=== PATIENT | female | born 1950 | race Caucasian/White ===

== ENCOUNTER 2021-03-23 13:59 | Emergency (ER) | payer MEDICARE, SELFPAY ==
[2021-03-23] VITALS (9 sets, daily range): BP systolic 117–139; BP diastolic 69–79; PULSE 75–93; RESP 16–20; TEMP 37.6; O2SAT 87–95; BMI 34.5
--- NOTE | 2021-03-23 15:28 | XR_ITS ---
WS: [id number] Exam: XR chest 1V portable [id number] Date/Time of Exam: 03/23/2021 3:30 PM Reason For Exam: dyspnea/cough No priors. Areas of plaque atelectasis in the mid and lower lung zones. Right perihilar infiltrate. Heart size i s top limits normal. No pleural effusions or pneumothorax. The mediastinum is not widened for techniq ue. Anterior lower cervical spine fusion. XR/XR chest 1V portable [id number] IMPRESSION: 1. Areas of plaque atelectasis in the mid and lower lung zones. 2. Right perihilar infiltrate noted. This could be chronic change versus active pneumonia.
--- NOTE | 2021-03-23 15:30 | ED_ITS ---
HPI - COVID General: Chief Complaint: Shortness of Breath/Dyspnea Stated Complaint: SOB, PERSISTENT COUGH, LOSS TASTE Time Seen by Provider: 03/23/21 15:15 Triage information: Has fever, cough or shortness of breath . No known COVID + exposure last 14 days History of Present Illness: MD complaint: has COVID symptoms COVID 19 common symptoms: positive fever(s), chills, cough, non-productive cough, dyspnea, fatigue, body aches, vomiting and diarrhea COVID 19 other sytmptoms: positive requiring oxygen Onset (ago): hour(s) Severity: mild Pertinent comorbid conditions: obesity and other (A. fib) Treatment prior to arrival: none COVID Results: SARS-CoV-2 Antigen (Rapid) Positive (Negative) H 03/23/21 15:43 03/23/21 SARS-CoV-2 RNA (RT-PCR) Detected (NOT DETECTED) A 03/23/21 13:58 03/23/21 Nasal/Oral Coronavirus 2019 PCR Detected H 03/23/21 15:43 03/23/21 Review of Systems Const: Reports: fever(s), chills, body aches and fatigue Resp: Reports: dyspnea and non-productive cough GI: Reports: vomiting and diarrhea PFS ED PFSH: Medical History (Updated 03/26/21 @ 02:20 by Tiffanie Kilgore MD) DVT (deep venous thrombosis) Hypertension Pulmonary embolism Surgical History (Updated 03/26/21 @ 02:13 by Tiffanie Kilgore MD) Total knee replacement status Physical Exam Const: COMMON NORMALS: no acute distress GENERAL APPEARANCE: cooperative and comfortable ORIENTATION/CONSCIOUSNESS: Yes awake, Yes oriented to person, Yes oriented to place and Yes oriented to time HENMT: COMMON NORMALS: normocephalic, atraumatic, hearing grossly normal bilaterally and external ears normal HEAD & SCALP: normocephalic and atraumatic EXTERNAL EAR: Yes external ears normal Neck/C-Spine: COMMON NORMALS: no JVD Resp: AUSCULTATION: crackles and wheezes Cardio: COMMON NORMALS: no JVD, regular rate, regular rhythm and No murmurs present (Cardio) RATE: regular rate RHYTHM: regular rhythm GI: COMMON NORMALS: Soft to palpation and No hepatosplenomegaly present AUSCULTATION: Yes normoactive bowel sounds PALPATION: Yes Soft to palpation, No Tenderness to palpation present (GI), No Guarding due to palpation present (GI) and Yes No hepatosplenomegaly present Extremity: COMMON NORMALS: normal to inspection, capillary refill normal, no clubbing, cyanosis or edema, no calf tenderness and no pedal edema Neuro: SENSORIUM/ORIENTATION: Yes oriented to person, Yes oriented to place and Yes oriented to time Skin: COMMON NORMALS: no rashes or lesions noted GENERAL SKIN EXAM: no rashes or lesions noted Course Vital Signs: Vital signs: Vital Signs Temperature 99.6 F 03/23/21 19:48 Pulse Rate 93 03/23/21 19:48 Respiratory Rate 18 03/23/21 19:48 Blood Pressure 119/69 03/23/21 19:48 Pulse Oximetry 91 03/23/21 19:48 MDM - COVID MDM Narrative: Medical decision making narrative: Discussed diagnosis and treatment. Patient wishes to get the monoclonal antibody we are going to set it up however when we did a home O2 evaluation when she got up and active she actually failed and required 4 L by nasal cannula prior to that she was getting normal sats while at rest. Due to this she is not can be a candidate we will set her up with dexamethasone home O2 discharge home on home oxygen monitor. She is telling me she is planning on driving back to [place] advised her of wally cobbably wait at least 7 to 10 days before returning since she needed oxygen she will need to recover from that before she can go home she has any worsening of symptoms she needs to return to the emergency room immediately. Lab Data: Labs: Lab Results 03/23/21 03/23/21 03/23/21 Range/Units 15:43 15:43 16:10 PT 33.90 H (12.1-14.9) SECO NDS INR 3.28 H (0.8-1.2) Nasal/Oral COVID-1 9 PCR Detected H SARS-CoV-2 Ag (Rap id) Positive H (Negative) COVID Results: SARS-CoV-2 Antigen (Rapid) Positive (Negative) H 03/23/21 15:43 03/23/21 SARS-CoV-2 RNA (RT-PCR) Detected (NOT DETECTED) A 03/23/21 13:58 03/23/21 Nasal/Oral Coronavirus 2019 PCR Detected H 03/23/21 15:43 03/23/21 Monoclonal Antibody - ED Inclusion/Exclusion Criteria age >/= 12 years, weight >/= 40kg /88lbs, symptom onset less than 10 days ago and + direct Sars-Cov-2 test less than 7-10 days ago obesity (BMI >25 or 85%til for age) and age >/= 65 Patient education patient/family/caregiver received/reviewed fact sheet, Emergency Use Authorization/unapproved drug status discussed with patient/family/caregiver, alternatives to this treatment discussed with patient/family/caregiver, risks and benefits of medication reviewed with patient/family/caregiver, patient/family/caregiver given opportunity for questions, which were answered and patient consents to receiving Monoclonal Antibody Treatment Plan for treatment Does not meet criteria (DO NOT GIVE) Discharge Plan Discharge Patient Disposition: Home Clinical Impression: COVID-19 Condition: Stable Prescriptions: New albuterol sulfate 90 mcg/actuation HFA aerosol inhaler 2 inh INHALATION Q4H PRN (Reason: shortness of breath or wheezing) Qty: 18 RF: 0 No Action propafenone 150 mg Tablet 150 mg PO DAILY MDD SEE PHARMACY COMMENT RF: 0 hydrocodone-acetaminophen 5-325 mg tablet 1 tab PO DAILY PRN (Reason: Pain) RF: 0 simvastatin 10 mg tablet 10 mg PO DAILY RF: 0 warfarin 4 mg tablet See Rx Instructions .ROUTE .COMPLEX RF: 0 hydrochlorothiazide 12.5 mg capsule 12.5 mg PO DAILY RF: 0 zolpidem 10 mg tablet 10 mg PO BEDTIME PRN (Reason: Insomnia) RF: 0 cholecalciferol (vitamin D3) [Vitamin D3] 25 mcg (1,000 unit) Capsule 50 mcg PO DAILY RF: 0 dexamethasone 6 mg tablet 6 mg PO DAILY RF: 0 Discharge Orders: Discharge ED (Routine); Ordered 03/23/21 Ordered By: Khoa Sosa Other Ambulatory Orders: DME: Oxygen (Order) Location: None Selected Ordered By: Khoa Sosa Discharge Diet: Usual diet Patient Instructions: Opioid Safety Activity Restrictions/Additional Instructions: Outpatient scheduling will call to schedule you for monoclonal antibodies. If you have any worsening symptoms return to the emergency room. Coding Level of Care Code ED Chief Quality Officer for Rajendra Dunaway Exam Comprehensive
[2021-03-23 16:33] LABS: INR 3.28 (0.8-1.2)
[2021-03-23 16:35] LABS: SARS Covid-2 Antigen Positive (Negative)
[2021-03-24 16:10] LABS: Coronavirus Test Green County Detected
== END 2021-03-23 19:58 | disposition home or self-care (01) ==
PROVIDERS: Emergency Provider Family Medicine
DX: U07.1 COVID-19 (principal); I48.91 Unspecified atrial fibrillation; I10 Essential (primary) hypertension; E66.9 Obesity, unspecified; Z68.34 Body mass index [BMI] 34.0-34.9, adult; Z79.01 Long term (current) use of anticoagulants
CPT/HCPCS: 71045; 85610; 87426; 87635; 99283

== ENCOUNTER 2021-03-24 20:05 | Emergency (ER) | payer MEDICARE, SELFPAY ==
--- NOTE | 2021-03-24 20:14 | ECG_ITS ---
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1950 Requested By: Stacie Holcomb Order Number: [id number] Reading MD: RIRI OROZCO Measurements Intervals [place] Rate: 74 P: 2 MI: 147 QRS: -2 QRSD: 89 T: -24 QT: 362 QTc: 404 Interpretive Statements SINUS RHYTHM POSSIBLE ANTERIOR MYOCARDIAL INFARCTION , OF INDETERMINATE AGE [30 ms Q WAVE IN V3/V4, OR R < 0.2 mV IN V4] MODERATE T-WAVE ABNORMALITY, CONSIDER LATERAL ISCHEMIA [-0.1+ mV T-WAVE IN I/aVL/V5/V6] No previous ECG available for comparison Electronically Signed On 03-24-2021 21:06:54 CDT by RIRI OROZCO [email or web address]
--- NOTE | 2021-03-24 20:14 | XRR_ITS ---
PROCEDURE INFORMATION: Exam: XR Chest Exam date and time: 03/24/2021 8:14 PM Age: 70 years old Clinical indication: Cough and shortness of breath; Patient HX: Covid+; Additional info: SOB TECHNIQUE: Imaging protocol: XR of the chest. Views: 1 view. COMPARISON: CR XR chest 1V portable [id number] 03/23/2021 3:46 PM FINDINGS: Lungs: Streak like increased airspace opacities bilaterally greater on left than right mostly at the bases. Background emphysema. Reduced lung volumes. Pleural spaces: Unremarkable. No pleural effusion. No pneumothorax. Heart/Mediastinum: Unremarkable. No cardiomegaly. Bones/joints: Lower cervical spine ACDF. Negative for acute thoracic fracture. XR/XR chest 1V portable [id number] IMPRESSION: Patchy nonspecific pneumonia changes in both lungs worse than prior.
[2021-03-24 20:42] VITALS: BP 123/72; PULSE 70; RESP 18; TEMP 20.1; O2SAT 89; BMI 34.7
--- NOTE | 2021-03-24 22:31 | ED_ITS ---
HPI - SOB/Dyspnea General: Chief Complaint: Shortness of Breath/Dyspnea Stated Complaint: sob, covid+ Time Seen by Provider: 03/24/21 22:25 Source: patient Mode of arrival: ambulatory Limitations: no limitations History of Present Illness: HPI Narrative: 70-year-old female who states she had cough congestion and fever and body aches over the last 4 days. She was seen here yesterday diagnosed with Covid and started on home oxygen. She states that throughout the day she has had increasing shortness of breath and feeling much worse. She states she has not been able to get up or do any activities due to body aches and dyspnea. Denies any vomiting or diarrhea. Denies any chest pain Associated symptoms: Reports fever(s); Deny abdominal pain, chest pain, nausea or vomiting Review of Systems Const: Reports: fever(s), chills and body aches; Denies: change in appetite Eyes: Denies: blurry vision or eye discomfort ENMT: Denies: throat pain or dental pain Card: Denies: chest pain Resp: Reports: dyspnea and non-productive cough GI: Denies: abdominal pain, nausea, vomiting or diarrhea : Denies: dysuria Musc: Denies: neck pain or back pain Skin/Breast: Denies: rash Neuro: Denies: headache(s) Psych: Denies: depression Gennaro/Lymph: Denies: easy bruising All/Imm: Denies: urticaria Physical Exam Const: COMMON NORMALS: patient oriented x3 GENERAL APPEARANCE: in distress and ill appearing HENMT: COMMON NORMALS: normocephalic and atraumatic HEAD & SCALP: normocephalic and atraumatic Eye: COMMON NORMALS: Equal, round and reactive pupils present and EOMs intact bilaterally PUPIL: Yes Equal, round and reactive pupils present Neck/C-Spine: COMMON NORMALS: full ROM and supple Chest: COMMONS NORMALS: normal inspection of the chest and normal palpation of entire chest wall Resp: COMMON NORMALS: No retractions and No use of accessory muscles EFFORT & INSPECTION: Yes tachypneic AUSCULTATION: rales Cardio: COMMON NORMALS: regular rate, regular rhythm and No murmurs present (Cardio) RATE: regular rate RHYTHM: regular rhythm GI: COMMON NORMALS: Normal to inspection, nondistended, normoactive bowel sounds present, Soft to palpation, non-tender and no masses PALPATION: Yes Soft to palpation Extremity: COMMON NORMALS: normal to inspection and full ROM Neuro: COMMON NORMALS: patient oriented x3, moves all extremities and no focal motor deficits Psych: COMMON NORMALS: mental status grossly normal, Normal thought process present and cooperative THOUGHT PROCESS: Normal thought process present Skin: COMMON NORMALS: no rashes or lesions noted and no wounds GENERAL SKIN EXAM: no rashes or lesions noted Course Vital Signs: Vital signs: Vital Signs Temperature 99 F 03/24/21 23:27 Pulse Rate 69 03/24/21 23:27 Respiratory Rate 18 03/24/21 23:27 Blood Pressure 128/61 03/24/21 23:27 Pulse Oximetry 93 03/24/21 23:27 MDM - SOB/Dyspnea MDM Narrative: Medical decision making narrative: Patient presents here with Covid. She diagnosed yesterday has been doing well here on the home oxygen level at 3 L she was discharged on. X-ray shows slight worsening her lab work here is normal. I spoke to her at length and I offered her admission as she had no improvement. She states that while she been here she is actually felt improved. She states that she would rather go at home currently she is feeling improved. I did inform her that her x-rays worsening and we could admit her. She states she still would like to try at home first. Informed her to watch her oxygen levels very closely and if she gets worse at all or feels worse she is to return immediately. She is with family as well. She understands agrees this plan. Lab Data: Labs: Lab Results 03/24/21 03/24/21 03/24/21 Range/Units 22:45 23:00 23:00 WBC 4.2 (4.0-10.0) 10^3/ uL RBC 4.96 (4.1-5.3) 10^6/u L Hgb 14.9 (11.5-15.3) g/dL Hct 44.2 (37.0-47.0) % MCV 89.1 (81-99) fl MCH 30.0 (28.0-34.0) pg MCHC 33.7 (30.0-36.0) g/dL RDW 13.3 (12.1-15.1) % Plt Count 244 (130-400) 10^3/c mm MPV 9.7 (7.4-10.4) fL Neut % (Auto) 83.4 % Lymph % (Auto) 10.6 % Redwood % (Auto) 5.8 % Eos % (Auto) 0.0 % Baso % (Auto) 0.0 % Neut # (Auto) 3.48 (1.8-7.7) 10^3/u L Lymph # (Auto) 0.4 L (0.8-4.8) 10^3/u L Redwood # (Auto) 0.2 (0.2-0.9) 10^3/u L Eos # (Auto) 0.0 (0.0-0.8) 10^3/u L Baso # (Auto) 0.0 (0.0-0.1) 10^3/u L Nucleated RBC % (a uto) 0 % Nucleated RBCs # 0.0 /100WBC PT 46.40 H (12.1-14.9) SECO NDS INR 4.91 H (0.8-1.2) D-Dimer <= 0.27 (0-0.59) ug/mIFE U Specimen Type Arterial Sample Site Radial, right ABG pH 7.45 (7.35-7.45) ABG pCO2 46.2 H (35-45) mmHg ABG pO2 71.8 L (80.0-100.0) mmH g ABG HCO3 32.4 H (22-26) mmol/L ABG Base Excess 7.2 H (-2.0-2.0) mmol/ L Junito Test Pos Hematocrit 46.7 (37-47) % O2 Delivery Device Nc O2 Liters/Min 3.0 % Digital Press Operator ID Harkr Sodium (136-145) mmol/L Potassium (3.5-5.1) mmol/L Chloride (98-107) mmol/L Carbon Dioxide (22-29) mmol/L Anion Gap (5-19) BUN (8-23) mg/dL Creatinine (0.5-0.9) mg/dL GFR Calculation (90-130) mL/min Glucose (65-115) mg/dL Calculated Osmolal ity (285-295) mOsm/k g Lactic Acid (0.5-2.2) mmol/L Calcium (8.5-10.5) mg/dL Total Bilirubin (0.15-1.2) mg/dL AST (0-32) U/L ALT (0-33) U/L Alkaline Phosphata se (35-105) IU/L C-Reactive Protein (0.0-4.9) mg/L NT-Pro-B Natriuret Pep (0-125) pg/mL Total Protein (6.6-8.7) g/dL Albumin (3.5-5.2) g/dL Globulin (1.3-4.6) g/dL Procalcitonin (0-0.5) ng/mL 03/24/21 03/24/21 03/24/21 Range/Units 23:00 23:00 23:00 WBC (4.0-10.0) 10^3/ uL RBC (4.1-5.3) 10^6/u L Hgb (11.5-15.3) g/dL Hct (37.0-47.0) % MCV (81-99) fl MCH (28.0-34.0) pg MCHC (30.0-36.0) g/dL RDW (12.1-15.1) % Plt Count (130-400) 10^3/c mm MPV (7.4-10.4) fL Neut % (Auto) % Lymph % (Auto) % Redwood % (Auto) % Eos % (Auto) % Baso % (Auto) % Neut # (Auto) (1.8-7.7) 10^3/u L Lymph # (Auto) (0.8-4.8) 10^3/u L Redwood # (Auto) (0.2-0.9) 10^3/u L Eos # (Auto) (0.0-0.8) 10^3/u L Baso # (Auto) (0.0-0.1) 10^3/u L Nucleated RBC % (a uto) % Nucleated RBCs # /100WBC PT Cancelled (12.1-14.9) SECO NDS INR Cancelled (0.8-1.2) D-Dimer (0-0.59) ug/mIFE U Specimen Type Sample Site ABG pH (7.35-7.45) ABG pCO2 (35-45) mmHg ABG pO2 (80.0-100.0) mmH g ABG HCO3 (22-26) mmol/L ABG Base Excess (-2.0-2.0) mmol/ L Junito Test Hematocrit (37-47) % O2 Delivery Device O2 Liters/Min % Digital Press Operator ID Sodium 141 (136-145) mmol/L Potassium 3.4 L (3.5-5.1) mmol/L Chloride 98 (98-107) mmol/L Carbon Dioxide 31 H (22-29) mmol/L Anion Gap 15.4 (5-19) BUN 21 (8-23) mg/dL Creatinine 0.6 (0.5-0.9) mg/dL GFR Calculation 99.1 (90-130) mL/min Glucose 128 H (65-115) mg/dL Calculated Osmolal ity 297 H (285-295) mOsm/k g Lactic Acid 1.3 (0.5-2.2) mmol/L Calcium 10.1 (8.5-10.5) mg/dL Total Bilirubin 0.6 (0.15-1.2) mg/dL AST 25 (0-32) U/L ALT 13 (0-33) U/L Alkaline Phosphata se 57 (35-105) IU/L C-Reactive Protein 42.8 H (0.0-4.9) mg/L NT-Pro-B Natriuret Pep 246 H (0-125) pg/mL Total Protein 7.6 (6.6-8.7) g/dL Albumin 3.9 (3.5-5.2) g/dL Globulin 3.7 (1.3-4.6) g/dL Procalcitonin 0.12 (0-0.5) ng/mL Imaging Data^: CXR: Attestation: I personally reviewed and interpreted this imaging study as follows: Radiologist's impression: [address] [place] [address] XRay Report Signed Patient: Venus Don Unit #: [id number] : 1950 Age/Sex: 70 / F ADM Date: 03/24/21 Loc: ER Room/Bed: Attending Dr: Ordering Provider/Ordering MD: Stacie Holcomb MD Date of Service: 03/24/21 Procedure(s): XR chest 1V portable [id number] Accession Number(s): [id number] Report Number: [id number] PROCEDURE INFORMATION: Exam: XR Chest Exam date and time: 03/24/2021 8:14 PM Age: 70 years old Clinical indication: Cough and shortness of breath; Patient HX: Covid+; Additional info: SOB TECHNIQUE: Imaging protocol: XR of the chest. Views: 1 view. COMPARISON: CR XR chest 1V portable [id number] 03/23/2021 3:46 PM FINDINGS: Lungs: Streak like increased airspace opacities bilaterally greater on left than right mostly at the bases. Background emphysema. Reduced lung volumes. Pleural spaces: Unremarkable. No pleural effusion. No pneumothorax. Heart/Mediastinum: Unremarkable. No cardiomegaly. Bones/joints: Lower cervical spine ACDF. Negative for acute thoracic fracture. XR/XR chest 1V portable [id number] IMPRESSION: Patchy nonspecific pneumonia changes in both lungs worse than prior. Dictated By: Marvel Odonnell Signed By: Marvel Odonnell Signed Date/Time: 03/24/212124 DD/ 22 EKG Data^: EKG 1: Attestation: I personally reviewed and interpreted this EKG as follows: EKG Interpretation Date: 03/24/21 EKG interpretation time: 20:59 Interpretation: nsr hr [address] or t wave abnormalities qrs 89 qtc 390 Discharge Plan Discharge Patient Disposition: Home Clinical Impression: COVID-19 Condition: Stable Prescriptions: No Action propafenone 150 mg Tablet 150 mg PO DAILY MDD SEE PHARMACY COMMENT RF: 0 hydrocodone-acetaminophen 5-325 mg tablet 1 tab PO DAILY PRN (Reason: Pain) RF: 0 simvastatin 10 mg tablet 10 mg PO DAILY RF: 0 warfarin 4 mg tablet See Rx Instructions .ROUTE .COMPLEX RF: 0 hydrochlorothiazide 12.5 mg capsule 12.5 mg PO DAILY RF: 0 zolpidem 10 mg tablet 10 mg PO BEDTIME PRN (Reason: Insomnia) RF: 0 Vitamin D3 25 mcg (1,000 unit) Capsule 50 mcg PO DAILY RF: 0 dexamethasone 6 mg tablet 6 mg PO DAILY Qty: 7 RF: 0 albuterol sulfate 90 mcg/actuation HFA aerosol inhaler 2 inh INHALATION Q4H PRN (Reason: shortness of breath or wheezing) Qty: 18 RF: 0 Discharge Orders: Discharge ED (Routine); Ordered 03/25/21 Ordered By: Stacie Holcomb Discharge Diet: Advance as tolerated Discharge Activity: Resume usual activity Patient Instructions: Viral Syndrome (ED) Coding Level of Care Code ED Hand Screen Printer for Jadyng Fwd Exam Comprehensive
[2021-03-24 22:43] VITALS: PULSE 70; RESP 20; O2SAT 94
[2021-03-24] MEDS: albuterol 8 gm MDI 2 PUFF INHALATION (22:43)
[2021-03-24 22:53] VITALS: PULSE 74
[2021-03-24 22:56] LABS: ABG PCO2 46.2 mmHg (35-45); ABG PH Result 7.45 (7.35-7.45); Arterial Blood Gas Hematocrit 46.7 % (37-47); Base Excess ABG 7.2 mmol/L (-2.0-2.0); Blood Gas Allen Test Pos; Blood Gas Operator Identificat HARKR; Blood Gas Sample Site Radial, right; Blood Gas Sample Type Arterial; HCO3 ABG 32.4 mmol/L (22-26); Oxygen Device NC; PO2 ABG 71.8 mmHg (80.0-100.0)
[2021-03-24 23:13] LABS: Hematocrit 44.2 % (37.0-47.0); Hemoglobin 14.9 g/dL (11.5-15.3); Lymphocytes # 0.4 10^3/uL (0.8-4.8); Lymphocytes % 10.6 %; Mean Corpuscular HGB Conc 33.7 g/dL (30.0-36.0); Mean Corpuscular Volume 89.1 fl (81-99); Mean Platelet Volume 9.7 fL (7.4-10.4); Monocytes # 0.2 10^3/uL (0.2-0.9); Monocytes % 5.8 %; Neutrophils # 3.48 10^3/uL (1.8-7.7); Neutrophils % 83.4 %; Nucleated Red Blood Cells % 0 %; Platelet Count 244 10^3/cmm (130-400); Red Blood Count 4.96 10^6/uL (4.1-5.3); Red Cell Distribution Width 13.3 % (12.1-15.1); White Blood Count 4.2 10^3/uL (4.0-10.0)
[2021-03-24] MEDS: dexamethasone 10 mg/mL INJ 6 MG IVP (23:16)
[2021-03-24 23:27] VITALS: BP 128/61; PULSE 69; RESP 18; TEMP 37.2; O2SAT 93
[2021-03-24 23:31] LABS: INR 4.91 (0.8-1.2)
[2021-03-24 23:33] LABS: D Dimer <= 0.27 ug/mIFEU (0-0.59)
[2021-03-24 23:38] LABS: Lactic Sepsis W/Reflex 1.3 mmol/L (0.5-2.2)
[2021-03-24 23:49] LABS: NT Pro B Type Natriuretic Pept 246 pg/mL (0-125); Procalcitonin 0.12 ng/mL (0-0.5)
--- NOTE | 2021-03-24 23:51 | PC.NURSE ---
report to Kofi CANNON
[2021-03-25] LABS: Alanine Aminotransferase 13 U/L (0-33); Albumin Level 3.9 g/dL (3.5-5.2); Alkaline Phosphatase 57 IU/L (35-105); Anion Gap 15.4 (5-19); Aspartate Amino Transferase 25 U/L (0-32); Blood Urea Nitrogen 21 mg/dL (8-23); C Reactive Protein 42.8 mg/L (0.0-4.9); Calcium 10.1 mg/dL (8.5-10.5); Carbon Dioxide 31 mmol/L (22-29); Chloride 98 mmol/L (98-107); Globulin 3.7 g/dL (1.3-4.6); Glomerular Filtration Rate 99.1 mL/min (90-130); Glucose 128 mg/dL (65-115); Osmolality Calculated 297 mOsm/kg (285-295); Potassium 3.4 mmol/L (3.5-5.1); Sodium 141 mmol/L (136-145); Total Bilirubin 0.6 mg/dL (0.15-1.2); Total Protein 7.6 g/dL (6.6-8.7)
[2021-03-25 01:22] VITALS: BP 135/73; PULSE 89; RESP 22; O2SAT 92
== END 2021-03-25 01:15 | disposition home or self-care (01) ==
PROVIDERS: Emergency Provider Emergency Medicine
DX: U07.1 COVID-19 (principal); Z79.01 Long term (current) use of anticoagulants
CPT/HCPCS: 36600; 71045; 80053; 82803; 83605; 83880; 84145; 85025; 85378; 85610; 86140; 93005; 94640; 96374; 99284; J1100; J3535

== ENCOUNTER 2021-03-25 16:43 | Inpatient (IN) | payer MEDICARE, SELFPAY ==
[2021-03-25 17:14] VITALS: BP 119/75; PULSE 101; RESP 18; TEMP 37.2; O2SAT 94; BMI 34.2
--- NOTE | 2021-03-25 17:55 | XRR_ITS ---
PROCEDURE INFORMATION: Exam: XR Chest Exam date and time: 03/25/2021 5:55 PM Age: 70 years old Clinical indication: Shortness of breath; Additional info: SOB TECHNIQUE: Imaging protocol: XR of the chest. Views: 1 view. Total images: 1 COMPARISON: CR (CHEST, ) 03/24/2021 8:45 PM FINDINGS: Lungs: Diminished inspiratory effort. Bilateral patches of ground-glass interstitial lung disease with subsegmental discoid consolidated alveolar airspace disease of active pneumonitis/pneumonia and or discoid atelectasis. Progression of disease particularly right lung since last evaluation. Overall constellation of findings would include the differential diagnosis of Covid-19 pneumonitis/pneumonia. Pleural spaces: No grossly visible pleural effusion. No pneumothorax. Heart/Mediastinum: Cardiac structures in configuration with cardiomegaly and arteriosclerosis. Bones/joints: Previous cervical fusion. Soft tissues: Heavy body habitus. XR/XR chest 1V portable [id number] IMPRESSION: Progression of disease bilateral pneumonitis/pneumonia.
--- NOTE | 2021-03-25 17:55 | ECG_ITS ---
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 Measurements Intervals [place] Rate: 76 P: 32 MS: 151 QRS: 13 QRSD: 102 T: -14 QT: 321 QTc: 362 Interpretive Statements SINUS RHYTHM NONSPECIFIC ST & T-WAVE ABNORMALITY Compared to ECG 03/24/2021 20:59:37 Myocardial infarct finding no longer present Possible ischemia no longer present T-wave abnormality still present Electronically Signed On 03-26-2021 13:05:34 CDT by Jennifer Bran M.D. [email or web address]
[2021-03-25 17:57] VITALS: BP 137/61; PULSE 81; RESP 18; TEMP 37.2; O2SAT 93
--- NOTE | 2021-03-25 18:04 | W.ED.URI ---
HPI - URI/Sore Throat General: Chief Complaint: Upper Respiratory Infection Stated Complaint: SOB, CP Time Seen by Provider: 03/25/21 17:38 Source: patient Mode of arrival: ambulatory Limitations: no limitations History of Present Illness: HPI Narrative: 70-year-old female who was diagnosed with Covid 4 days ago and has been having symptoms for 5 days. She states that she is increasingly gotten worse. I saw her in the ER last night and tried admitted but she felt improved and went home. She states that since being home she felt worse and is changed her mind and feels that she does need to be admitted. She is currently on 5 L she was on 3 L yesterday. She states she had increasing shortness of breath. Denies any vomiting or diarrhea. Associated symptoms: Reports chills and fever(s); Deny abdominal pain, chest pain, diarrhea, headache(s), nausea or vomiting Review of Systems Const: Reports: fever(s), chills and body aches Eyes: Denies: blurry vision or eye discomfort ENMT: Denies: throat pain or dental pain Card: Denies: chest pain Resp: Reports: dyspnea and non-productive cough GI: Denies: abdominal pain, nausea, vomiting or diarrhea : Denies: dysuria Musc: Denies: neck pain or back pain Skin/Breast: Denies: rash Neuro: Denies: headache(s) Psych: Denies: depression Gennaro/Lymph: Denies: easy bruising All/Imm: Denies: urticaria Physical Exam Const: COMMON NORMALS: patient oriented x3 GENERAL APPEARANCE: in distress and ill appearing HENMT: COMMON NORMALS: normocephalic and atraumatic HEAD & SCALP: normocephalic and atraumatic Eye: COMMON NORMALS: Equal, round and reactive pupils present and EOMs intact bilaterally PUPIL: Yes Equal, round and reactive pupils present Neck/C-Spine: COMMON NORMALS: full ROM and supple Chest: COMMONS NORMALS: normal inspection of the chest and normal palpation of entire chest wall Resp: COMMON NORMALS: normal respiratory effort, No retractions and No use of accessory muscles EFFORT & INSPECTION: Yes tachypneic AUSCULTATION: rales Cardio: COMMON NORMALS: regular rate, regular rhythm and No murmurs present (Cardio) RATE: regular rate RHYTHM: regular rhythm GI: COMMON NORMALS: Normal to inspection, nondistended, normoactive bowel sounds present, Soft to palpation, non-tender and no masses PALPATION: Yes Soft to palpation Extremity: COMMON NORMALS: normal to inspection and full ROM Neuro: COMMON NORMALS: patient oriented x3, moves all extremities and no focal motor deficits Psych: COMMON NORMALS: mental status grossly normal, Normal thought process present and cooperative THOUGHT PROCESS: Normal thought process present Skin: COMMON NORMALS: no rashes or lesions noted and no wounds GENERAL SKIN EXAM: no rashes or lesions noted Course Vital Signs: Vital signs: Vital Signs Temperature 99.0 F 03/25/21 17:57 Pulse Rate 90 03/25/21 20:51 Respiratory Rate 17 03/25/21 20:51 Blood Pressure 125/70 03/25/21 20:51 Pulse Oximetry 92 03/25/21 20:51 MDM - URI/Sore Throat MDM Narrative: Medical decision making narrative: Patient presents here with Covid pneumonia requiring more oxygen and worsening x-ray. I spoke to hospitalist and will admit here. Patient's been stable while here. Lab Data: Labs: Lab Results 03/25/21 03/25/21 03/25/21 Range/Units 18:29 19:40 19:40 WBC 6.9 (4.0-10.0) 10^3/ uL RBC 4.66 (4.1-5.3) 10^6/u L Hgb 14.1 (11.5-15.3) g/dL Hct 41.9 (37.0-47.0) % MCV 89.9 (81-99) fl MCH 30.3 (28.0-34.0) pg MCHC 33.7 (30.0-36.0) g/dL RDW 13.1 (12.1-15.1) % Plt Count 275 (130-400) 10^3/c mm MPV 9.9 (7.4-10.4) fL Neut % (Auto) 88.7 % Lymph % (Auto) 3.3 % Vermilion % (Auto) 7.4 % Eos % (Auto) 0.0 % Baso % (Auto) 0.0 % Neut # (Auto) 6.10 (1.8-7.7) 10^3/u L Lymph # (Auto) 0.2 L (0.8-4.8) 10^3/u L Vermilion # (Auto) 0.5 (0.2-0.9) 10^3/u L Eos # (Auto) 0.0 (0.0-0.8) 10^3/u L Baso # (Auto) 0.0 (0.0-0.1) 10^3/u L Nucleated RBC % (a uto) 0 % Nucleated RBCs # 0.0 /100WBC Specimen Type Arterial Sample Site Radial, left ABG pH 7.51 H (7.35-7.45) ABG pCO2 40.6 (35-45) mmHg ABG pO2 72.2 L (80.0-100.0) mmH g ABG HCO3 32.6 H (22-26) mmol/L ABG Base Excess 8.8 H (-2.0-2.0) mmol/ L Junito Test Pos Hematocrit 45.9 (37-47) % O2 Delivery Device Nc O2 Liters/Min 4.0 % FiO2 36.0 % Source Water Protection Specialist ID Cak Sodium 144 (136-145) mmol/L Potassium 3.1 L (3.5-5.1) mmol/L Chloride 103 (98-107) mmol/L Carbon Dioxide 28 (22-29) mmol/L Anion Gap 16.1 (5-19) BUN 25 H (8-23) mg/dL Creatinine 0.6 (0.5-0.9) mg/dL GFR Calculation 99.1 (90-130) mL/min Glucose 129 H (65-115) mg/dL Calculated Osmolal ity 304 H (285-295) mOsm/k g Lactic Acid (0.5-2.2) mmol/L Calcium 8.9 (8.5-10.5) mg/dL Total Bilirubin 0.5 (0.15-1.2) mg/dL AST 25 (0-32) U/L ALT 10 (0-33) U/L Alkaline Phosphata se 49 (35-105) IU/L C-Reactive Protein 36.5 H (0.0-4.9) mg/L NT-Pro-B Natriuret Pep 267 H (0-125) pg/mL Total Protein 6.1 L (6.6-8.7) g/dL Albumin 3.7 (3.5-5.2) g/dL Globulin 2.4 (1.3-4.6) g/dL 03/25/21 Range/Units 20:39 WBC (4.0-10.0) 10^3/ uL RBC (4.1-5.3) 10^6/u L Hgb (11.5-15.3) g/dL Hct (37.0-47.0) % MCV (81-99) fl MCH (28.0-34.0) pg MCHC (30.0-36.0) g/dL RDW (12.1-15.1) % Plt Count (130-400) 10^3/c mm MPV (7.4-10.4) fL Neut % (Auto) % Lymph % (Auto) % Vermilion % (Auto) % Eos % (Auto) % Baso % (Auto) % Neut # (Auto) (1.8-7.7) 10^3/u L Lymph # (Auto) (0.8-4.8) 10^3/u L Vermilion # (Auto) (0.2-0.9) 10^3/u L Eos # (Auto) (0.0-0.8) 10^3/u L Baso # (Auto) (0.0-0.1) 10^3/u L Nucleated RBC % (a uto) % Nucleated RBCs # /100WBC Specimen Type Sample Site ABG pH (7.35-7.45) ABG pCO2 (35-45) mmHg ABG pO2 (80.0-100.0) mmH g ABG HCO3 (22-26) mmol/L ABG Base Excess (-2.0-2.0) mmol/ L Junito Test Hematocrit (37-47) % O2 Delivery Device O2 Liters/Min % FiO2 % Source Water Protection Specialist ID Sodium (136-145) mmol/L Potassium (3.5-5.1) mmol/L Chloride (98-107) mmol/L Carbon Dioxide (22-29) mmol/L Anion Gap (5-19) BUN (8-23) mg/dL Creatinine (0.5-0.9) mg/dL GFR Calculation (90-130) mL/min Glucose (65-115) mg/dL Calculated Osmolal ity (285-295) mOsm/k g Lactic Acid 1.6 (0.5-2.2) mmol/L Calcium (8.5-10.5) mg/dL Total Bilirubin (0.15-1.2) mg/dL AST (0-32) U/L ALT (0-33) U/L Alkaline Phosphata se (35-105) IU/L C-Reactive Protein (0.0-4.9) mg/L NT-Pro-B Natriuret Pep (0-125) pg/mL Total Protein (6.6-8.7) g/dL Albumin (3.5-5.2) g/dL Globulin (1.3-4.6) g/dL Imaging Data^: CXR: Attestation: I personally reviewed and interpreted this imaging study as follows: Radiologist's impression: [id number] [address] XRay Report Signed Patient: Venus Don Unit #: [id number] : 1950 Age/Sex: 70 / F ADM Date: 03/25/21 Loc: ER Room/Bed: Attending Dr: Ordering Provider/Ordering MD: Stacie Holcomb MD Date of Service: 03/25/21 Procedure(s): XR chest 1V portable [id number] Accession Number(s): [id number] Report Number: [id number] PROCEDURE INFORMATION: Exam: XR Chest Exam date and time: 03/25/2021 5:55 PM Age: 70 years old Clinical indication: Shortness of breath; Additional info: SOB TECHNIQUE: Imaging protocol: XR of the chest. Views: 1 view. Total images: 1 COMPARISON: CR (CHEST, ) 03/24/2021 8:45 PM FINDINGS: Lungs: Diminished inspiratory effort. Bilateral patches of ground-glass interstitial lung disease with subsegmental discoid consolidated alveolar airspace disease of active pneumonitis/pneumonia and or discoid atelectasis. Progression of disease particularly right lung since last evaluation. Overall constellation of findings would include the differential diagnosis of Covid-19 pneumonitis/pneumonia. Pleural spaces: No grossly visible pleural effusion. No pneumothorax. Heart/Mediastinum: Cardiac structures in configuration with cardiomegaly and arteriosclerosis. Bones/joints: Previous cervical fusion. Soft tissues: Heavy body habitus. XR/XR chest 1V portable [id number] IMPRESSION: Progression of disease bilateral pneumonitis/pneumonia. Dictated By: Zeyad Washington Signed By: Zeyad Washington Signed Date/Time: 03/25/211846 DD/ 44 Discharge Plan Discharge Patient Disposition: Admitted As Inpatient Clinical Impression: COVID-19 Condition: Stable Coding Level of Care Code ED Electric Power Line Examiner for Chg Fwd Exam Comprehensive
[2021-03-25 18:40] LABS: ABG PCO2 40.6 mmHg (35-45); ABG PH Result 7.51 (7.35-7.45); Arterial Blood Gas Hematocrit 45.9 % (37-47); Base Excess ABG 8.8 mmol/L (-2.0-2.0); Blood Gas Allen Test Pos; Blood Gas Operator Identificat CAK; Blood Gas Sample Site Radial, left; Blood Gas Sample Type Arterial; HCO3 ABG 32.6 mmol/L (22-26); Oxygen Device NC; PO2 ABG 72.2 mmHg (80.0-100.0)
[2021-03-25] MEDS: remdesivir 200 MG in sodium chloride 0.9% (100 ml) 100 ML 100 MG IV (19:41)
[2021-03-25 19:45] LABS: Hematocrit 41.9 % (37.0-47.0); Hemoglobin 14.1 g/dL (11.5-15.3); Lymphocytes # 0.2 10^3/uL (0.8-4.8); Lymphocytes % 3.3 %; Mean Corpuscular HGB Conc 33.7 g/dL (30.0-36.0); Mean Corpuscular Hemoglobin 30.3 pg (28.0-34.0); Mean Corpuscular Volume 89.9 fl (81-99); Mean Platelet Volume 9.9 fL (7.4-10.4); Monocytes # 0.5 10^3/uL (0.2-0.9); Monocytes % 7.4 %; Neutrophils % 88.7 %; Nucleated Red Blood Cells % 0 %; Platelet Count 275 10^3/cmm (130-400); Red Blood Count 4.66 10^6/uL (4.1-5.3); Red Cell Distribution Width 13.1 % (12.1-15.1); White Blood Count 6.9 10^3/uL (4.0-10.0)
[2021-03-25 20:50] LABS: Alanine Aminotransferase 10 U/L (0-33); Albumin Level 3.7 g/dL (3.5-5.2); Alkaline Phosphatase 49 IU/L (35-105); Aspartate Amino Transferase 25 U/L (0-32); Blood Urea Nitrogen 25 mg/dL (8-23); C Reactive Protein 36.5 mg/L (0.0-4.9); Calcium 8.9 mg/dL (8.5-10.5); Carbon Dioxide 28 mmol/L (22-29); Chloride 103 mmol/L (98-107); Globulin 2.4 g/dL (1.3-4.6); Glomerular Filtration Rate 99.1 mL/min (90-130); Glucose 129 mg/dL (65-115); NT Pro B Type Natriuretic Pept 267 pg/mL (0-125); Osmolality Calculated 304 mOsm/kg (285-295); Sodium 144 mmol/L (136-145); Total Bilirubin 0.5 mg/dL (0.15-1.2); Total Protein 6.1 g/dL (6.6-8.7)
[2021-03-25 20:51] VITALS: BP 125/70; PULSE 90; RESP 17; O2SAT 92
[2021-03-25 20:55] LABS: Anion Gap 16.1 (5-19); Potassium 3.1 mmol/L (3.5-5.1)
[2021-03-25 21:06] LABS: Lactic Sepsis W/Reflex 1.6 mmol/L (0.5-2.2)
[2021-03-25] MEDS: potassium chloride ER 20 mEq Tablet 40 MEQ PO (22:53)
[2021-03-25] MEDS: cefTRIAXone 1,000 MG in sodium chloride 0.9% (plus) 50 ML 100 MG IV (22:54)
[2021-03-25] MEDS: dexamethasone 4 mg/mL INJ 6 MG IVP (22:54)
[2021-03-25 23:00] VITALS: BP 106/73; PULSE 68; RESP 17; O2SAT 94
[2021-03-25 23:14] VITALS: BP 106/73; PULSE 68; RESP 17; O2SAT 94
[2021-03-25 23:44] VITALS: BMI 33.7
[2021-03-26] VITALS (13 sets, daily range): BP systolic 119–130; BP diastolic 53–64; PULSE 54–69; RESP 16–24; TEMP 36.5–36.9; O2SAT 89–93
[2021-03-26] MEDS: azithromycin 500 MG in sodium chloride 0.9% 250 ML 250 MG IV ×2 (00:13→22:19)
--- NOTE | 2021-03-26 00:36 | PC.NURSE ---
Transfer Note Patient transferred to 208 from ED via stretcher at 0010. Handoff received from ED RN. Patient oriented to environment and equipment. Covering service notified. Orders reviewed and will continue to monitor. Family and/or parts representative notified.
--- NOTE | 2021-03-26 02:09 | P.HP_ITS ---
Providers/Chief Complaint Admitting Physician: Tiffanie Kilgore MD Chief Complaint: SOB, CP History of Present Illness Venus Don is a 70 year old female currently visiting family here from [place], past medical history of PE for which patient is maintained on warfarin for the past 6 years, states her goal INR is 2.5-3.5, atrial fibri llation, currently with propafenone. She tested positive for COVID-19 infection on March 23, 2021. Presented to the emergency room for monoclonal antibody infusion, however was found to have a new oxygen requirement at that time and this was therefore deferred. She was discharged home with oxygen and dexamethasone 6 mg p.o. daily. States she was using up to 4 L/min at home, today she noted that she was becoming more short of breath, oxygen saturation was in the mid 80s and this prompted her to present to the emergency room. Her chest x-ray shows evidence of bilateral pneumonia. INR is noted to be supratherapeutic at this time. Patient is mildly short of breath and speaking in long sentences. Currently requiring 5 L/min via nasal cannula. She is unvaccinated for COVID-19. Review of Systems General: Reports: 10 or more systems reviewed and unremarkable except in HPI and below Const: Denies: fever(s), chills or body aches Eyes: Denies: change in vision, blurry vision or photophobia ENMT: Reports: hoarseness; Denies: throat pain, enlarged tonsils, odynophagia or nasal congestion Card: Denies: chest pain, palpitations, irregular heart rhythm, edema, swelling of feet/ankles, lightheadedness, pre-syncope, dyspnea on exertion or orthopnea Resp: Denies: dyspnea, productive cough, non-productive cough, wheezing, stridor, pain on inspiration, change in phlegm color, hemoptysis or chest congestion GI: Denies: abdominal pain, nausea, vomiting, hematemesis, coffee ground emesis, dysphagia, heartburn, diarrhea, constipation, GI cramping, change in stool character, hematochezia or melena : Denies: flank pain, difficulty voiding, dysuria, urinary frequency, urina ry urgency, urinary hesitancy or hematuria Musc: Denies: neck pain, back pain, extremity pain, joint swelling, joint warmth or deformity Neuro: Denies: headache(s), numbness in extremities, weakness in extremities, sensory changes, difficulty walking, frequent falls, dizziness, vertigo, be havioral changes, Slurred speech present or seizure-like activity Psych: Denies: anxiety, depression, suicidal ideation or homicidal ideation Endo: Denies: polyuria, polydipsia, tired all the time, cold intolerance or hot flashes Gennaro/Lymph: Denies: easy bruising or easy bleeding Medications/Allergies Home Medications Medication Instructions Recorded Confirmed Last Taken Type albuterol sulfate 2 inh INHALATION Q4H PRN #18 gm 03/23/21 03/25/21 Unknown Rx cholecalciferol (vitamin D3) 50 mcg PO DAILY 03/23/21 03/25/21 03/25/21 History [Vitamin D3] hydrochlorothiazide 12.5 mg PO DAILY 03/23/21 03/25/21 03/25/21 History hydrocodone-acetaminophen 1 tab PO DAILY PRN 03/23/21 03/25/21 Unknown History propafenone 150 mg PO DAILY MDD SEE PHARMACY 03/23/21 03/25/21 03/25/21 History COMMENT simvastatin 10 mg PO DAILY 03/23/21 03/25/21 03/25/21 History warfarin See Rx Instructions .ROUTE .COMPLEX 03/23/21 03/25/21 03/25/21 History zolpidem 10 mg PO BEDTIME PRN 03/23/21 03/25/21 03/24/21 History dexamethasone 6 mg PO DAILY 03/25/21 03/25/21 03/24/21 History Allergies Allergy/AdvReac Type Severity Reaction Status Date / Time egg Allergy vomiting Verified 03/23/21 13:26 PFSH Acute PFSH: Medical History (Updated 03/26/21 @ 02:20 by Tiffanie Kilgore MD) DVT (deep venous thrombosis) Hypertension Pulmonary embolism Surgical History (Updated 03/26/21 @ 02:13 by Tiffanie Kilgore MD) Total knee replacement status Vitals/I&O/Wt Last Vital Signs Temp 98.3 F 03/26/21 00:00 Pulse 62 03/26/21 00:00 Resp 22 H 03/26/21 00:00 BP 127/64 03/26/21 00:00 Pulse Ox 93 03/26/21 00:00 03/25/21 03/25/21 03/26/21 14:59 22:59 06:59 Intake Total 100 / 100 300 / 400 Balance 100 / 100 300 / 400 Weight last 48 hrs Weight 83.552 kg Weight 84.822 kg Physical Exam Narrative: EXAM NARRATIVE: GENERAL: Awake, alert, oriented, tachypneic on trying to converse in full sentences, currently on 5 L/min supplemental O2 HEENT: Normocephalic, atraumatic, PERRLA. [] CHEST: Scattered crackles on auscultation bilaterally CVS: S1, S2 normal. No murmur, rubs, gallops. Peripheral pulses palpable. [] ABDOMEN: Soft, nontender. Nondistended. Bowel sounds heard. [] NEUROVASCULAR: Awake, alert. Power 5/5 all extremities. DTR+ [] EXTREMITIES: No edema. [] Data : 03/25/21 19:40 03/25/21 19:40 A&P Assessment and plan (1) Acute hypoxemic respiratory failure due to COVID-19: Remdisivir 200mg iv x 1 followed by 100mg iv daily dexamethasone 6mg IVP daily duoneb q6h, budesonide q12h empiric CTX and azithromycin Flutter valve/spirometer at bedside trend inflammatory markers including CRP, LDH, D dimer, Ferritin Low suspicion for PE given that patient is already on warfarin and is currently supratherapeutic INR Supplemental O2 to keep saturation greater than 92% Status: Acute (2) Atrial fibrillation: Currently in sinus rhythm, rate control Continue propafenone at home dose Holding Coumadin for now, patient states her goal INR is between 2.5-3.5 Recheck INR with a.m. labs Status: Acute Qualifiers: Atrial fibrillation type: unspecified chronic Qualified Code(s): I48.20 - Chronic atrial fibrillation, unspecified (3) Hypertension: Continue hydrochlorothiazide Status: Acute Qualifiers: Hypertension type: essential hypertension Qualified Code(s): I10 - Essential (primary) hypertension (4) Supratherapeutic INR: As above Status: Acute (5) COVID-19 vaccination not done: Status: Acute Additional A&P Information Full code DVT prophylaxis: Currently on warfarin Attestations Medical Necessity Statement*: Greater than 2 midnight admission will be required for above defined care Coding Level of Care Code [facility] Acute hypoxemic respiratory failure due to COVID-19 U07.1; J96.01 Atrial fibrillation I48.20 Atrial fibrillation type: unspecified chronic Hypertension I10 Hypertension type: essential hypertension Supratherapeutic INR R79.1 COVID-19 vaccination not done Z28.9
[2021-03-26] MEDS: pneumococcal (23 valent) SDV 0.5 mL IM (03:47)
[2021-03-26 07:04] LABS: Hematocrit 41.2 % (37.0-47.0); Hemoglobin 13.8 g/dL (11.5-15.3); Lymphocytes # 0.4 10^3/uL (0.8-4.8); Lymphocytes % 6.8 %; Mean Corpuscular HGB Conc 33.5 g/dL (30.0-36.0); Mean Corpuscular Hemoglobin 30.5 pg (28.0-34.0); Mean Corpuscular Volume 90.9 fl (81-99); Mean Platelet Volume 9.6 fL (7.4-10.4); Monocytes # 0.3 10^3/uL (0.2-0.9); Monocytes % 5.2 %; Neutrophils # 4.89 10^3/uL (1.8-7.7); Neutrophils % 87.6 %; Nucleated Red Blood Cells % 0 %; Platelet Count 285 10^3/cmm (130-400); Red Blood Count 4.53 10^6/uL (4.1-5.3); Red Cell Distribution Width 13.2 % (12.1-15.1); White Blood Count 5.6 10^3/uL (4.0-10.0)
[2021-03-26 07:27] LABS: Alanine Aminotransferase 10 U/L (0-33); Albumin Level 3.5 g/dL (3.5-5.2); Alkaline Phosphatase 47 IU/L (35-105); Anion Gap 12.5 (5-19); Aspartate Amino Transferase 23 U/L (0-32); Blood Urea Nitrogen 25 mg/dL (8-23); Calcium 9.9 mg/dL (8.5-10.5); Carbon Dioxide 32 mmol/L (22-29); Chloride 104 mmol/L (98-107); Globulin 3.1 g/dL (1.3-4.6); Glomerular Filtration Rate 122.3 mL/min (90-130); Glucose 137 mg/dL (65-115); Osmolality Calculated 307 mOsm/kg (285-295); Potassium 3.5 mmol/L (3.5-5.1); Sodium 145 mmol/L (136-145); Total Bilirubin 0.4 mg/dL (0.15-1.2); Total Protein 6.6 g/dL (6.6-8.7)
--- NOTE | 2021-03-26 08:12 | PC.NURSE ---
Shift Note Frequent safety and comfort rounds continue. Orders and/or nursing care completed as indicated. Patient monitored for response to intervention and treatment(s). Education provided includes oxygen safety. Patient needs reinforcement. Will continue to monitor. Patient's sister Lizeth called. Patient okay'd staff to give information to her.
[2021-03-26] MEDS: hydroCHLOROthiazide 25 mg Tablet 12.5 MG PO (08:19)
[2021-03-26] MEDS: atorvastatin 40 mg Tablet 20 MG PO (08:19)
[2021-03-26] MEDS: pantoprazole DR 40 mg Tablet PO (08:19)
[2021-03-26 08:47] LABS: Creatine Phosphokinase 60 U/L (26-192)
[2021-03-26] MEDS: ipratropium-albuterol 3 mL Neb INHALATION ×3 (08:57→20:50)
[2021-03-26] MEDS: budesonide 0.5 mg/2 mL Neb INHALATION ×2 (08:57→20:50)
[2021-03-26] MEDS: propafenone 150 mg Tablet PO (09:27)
[2021-03-26 09:30] LABS: INR 9.39 (0.8-1.2)
[2021-03-26 10:15] LABS: C Reactive Protein 53.6 mg/L (0.0-4.9); Creatine Phosphokinase 54 U/L (26-192); Lactate Dehydrogenase 337 U/L (135-214)
--- NOTE | 2021-03-26 12:27 | PM.PN ---
Subjective Subjective: Interval history: Ms. Don is visiting from [place]. Unfortunately developed COVID-19 symptoms last Monday and presented to the hospital, she takes Coumadin for her history of PE Currently requiring 6 L of oxygen, endorsing feeling somewhat the same with feeling of being drained lack of energy, she is not complaining of active diarrhea however her appetite is poor she has been able to take small bites of her meals Vitals/I&O/Wt Last Vital Signs Temp 97.7 F 03/26/21 11:56 Pulse 65 03/26/21 11:56 Resp 19 H 03/26/21 11:56 BP 119/64 03/26/21 11:56 Pulse Ox 92 03/26/21 11:56 03/25/21 03/26/21 03/26/21 22:59 06:59 14:59 Intake Total 100 / 100 350 / 450 240 / 240 Output Total 400 / 400 Balance 100 / 100 -50 / 50 240 / 240 Weight last 48 hrs Weight 83.552 kg Weight 84.822 kg Physical Exam Narrative: EXAM NARRATIVE: Patient was laying flat experiencing dry cough, fatigue and lethargic Saturating well on 6 L nasal cannula S1, S2 sinus rhythm Abdomen soft Bilateral breath sound without adventitious rhonchi or crackles EOMI, PERRLA No signs of edema of lower extremity Data : 03/26/21 06:50 03/26/21 06:50 A&P Assessment and plan (1) COVID-19 vaccination not done: Status: Acute (2) Supratherapeutic INR: Status: Acute (3) Hypertension: Status: Acute Qualifiers: Hypertension type: essential hypertension Qualified Code(s): I10 - Essential (primary) hypertension (4) Acute hypoxemic respiratory failure due to COVID-19: Status: Acute (5) COVID-19: Status: Acute Additional A&P Information Acute hypoxia related to COVID-19 Currently 6L nasal cannula Complaining of anorexia and fatigue Continue Decadron remdesivir Multivitamins and zinc She is on empiric antibiotics Procalcitonin unremarkable, I will discontinue antibiotics tomorrow if she stays afebrile Supratherapeutic INR Patient history of PE/A. fib I would hold her Coumadin for now INR is 9 no active bleeding no need to reverse her Coumadin at this point Hypertension: Currently normotensive Full code DVT prophylaxis not indicated due to supratherapeutic Cardiac diet Attestations Medical Necessity Statement*: Continue medical management plan to discharge her if she is able to maintain her oxygenation on ambulation will request PT evaluation Time Spent in Patient Care: less than 15 minutes Coding Level of Care Code Acute Toolmaker Grade Three for Chg Fwd Diagnoses COVID-19 vaccination not done Z28.9 Supratherapeutic INR R79.1 Hypertension I10 Hypertension type: essential hypertension Acute hypoxemic respiratory failure due to COVID-19 U07.1; J96.01 COVID-19 U07.1
[2021-03-26] MEDS: remdesivir 100 MG in sodium chloride 0.9% (100 ml) 100 ML IV (17:16)
--- NOTE | 2021-03-26 18:27 | PC.RESP ---
RT Shift Note Frequent safety and respiratory rounds continue. Orders completed as indicated. Patient monitored pre and post treatments throughout shift. Patient tolerated treatments appropriately. Condition did not change. Patient and/or advertising representative educated on respiratory treatment and medications. Patient and/or advertising representative verbalized understanding. Will continue to monitor patient progress.
--- NOTE | 2021-03-26 21:11 | PC.NURSE ---
i reported low pulse 58 and low 02 89 to nurse will recheck
[2021-03-26] MEDS: cefTRIAXone 1,000 MG in sodium chloride 0.9% (plus) 50 ML 100 MG IV (21:30)
[2021-03-26] MEDS: dexamethasone 4 mg/mL INJ 6 MG IVP (22:27)
--- NOTE | 2021-03-26 23:59 | PC.NURSE ---
i reported low pulse 57 to nurse
[2021-03-27] VITALS (93 sets, daily range): BP systolic 111–132; BP diastolic 60–90; PULSE 52–160; RESP 18–30; TEMP 36.6–37.1; O2SAT 80–96
[2021-03-27] MEDS: ipratropium-albuterol 3 mL Neb INHALATION ×4 (02:25→20:10)
--- NOTE | 2021-03-27 04:16 | PC.NURSE ---
i reported low pulse 58 to nurse
[2021-03-27 05:36] LABS: Hematocrit 40.3 % (37.0-47.0); Hemoglobin 13.6 g/dL (11.5-15.3); Lymphocytes # 0.4 10^3/uL (0.8-4.8); Lymphocytes % 5.7 %; Mean Corpuscular HGB Conc 33.7 g/dL (30.0-36.0); Mean Corpuscular Hemoglobin 30.7 pg (28.0-34.0); Mean Platelet Volume 9.8 fL (7.4-10.4); Monocytes # 0.3 10^3/uL (0.2-0.9); Monocytes % 5.2 %; Neutrophils # 5.55 10^3/uL (1.8-7.7); Neutrophils % 88.1 %; Nucleated Red Blood Cells % 0 %; Platelet Count 323 10^3/cmm (130-400); Red Blood Count 4.43 10^6/uL (4.1-5.3); Red Cell Distribution Width 13.1 % (12.1-15.1); White Blood Count 6.3 10^3/uL (4.0-10.0)
[2021-03-27 06:10] LABS: Anion Gap 12.3 (5-19); Blood Urea Nitrogen 25 mg/dL (8-23); Calcium 10.2 mg/dL (8.5-10.5); Carbon Dioxide 31 mmol/L (22-29); Chloride 104 mmol/L (98-107); Glomerular Filtration Rate 122.3 mL/min (90-130); Glucose 133 mg/dL (65-115); Osmolality Calculated 304 mOsm/kg (285-295); Potassium 3.3 mmol/L (3.5-5.1); Sodium 144 mmol/L (136-145)
[2021-03-27] MEDS: propafenone 150 mg Tablet PO (08:30)
[2021-03-27] MEDS: atorvastatin 40 mg Tablet 20 MG PO (08:31)
[2021-03-27] MEDS: pantoprazole DR 40 mg Tablet PO (08:31)
[2021-03-27] MEDS: hydroCHLOROthiazide 25 mg Tablet 12.5 MG PO (08:34)
[2021-03-27] MEDS: budesonide 0.5 mg/2 mL Neb INHALATION ×2 (09:40→20:10)
--- NOTE | 2021-03-27 12:34 | P.PN_ITS ---
Subjective Subjective: Interval history: Patient still has poor p.o. intake and because of her weakness and lethargy she has not been able to get out of bed to chair, this morning she went into A. fib with RVR despite getting her home medications she was given Cardizem 5 mg IV push and then started on 30 mg p.o. every 6 hours unfortunately her oxygen requirement had to go up as well she is on heated high flow now Vitals/I&O/Wt Last Vital Signs Temp 98.7 F 03/27/21 11:46 Pulse 85 03/27/21 11:46 Resp 20 H 03/27/21 11:46 BP 124/90 03/27/21 11:46 Pulse Ox 89 L 03/27/21 11:46 03/26/21 03/27/21 03/27/21 22:59 06:59 14:59 Intake Total 270 / 510 250 / 760 Balance 270 / 510 250 / 760 Weight last 48 hrs Weight 83.552 kg Weight 84.822 kg Physical Exam Narrative: EXAM NARRATIVE: Very lethargic and fatigued Was in the right lateral position when entered the room her oxygen requirement went up from 6 L nasal cannula to heated high flow with A. fib RVR S1, S2 variable no murmur Abdomen soft Lower extremity no edema No neurological deficit EOMI, PERRLA No joint swelling Appears euvolemic Data : 03/27/21 05:14 03/27/21 05:14 A&P Assessment and plan (1) Supratherapeutic INR: Status: Acute (2) Hypertension: Status: Acute Qualifiers: Hypertension type: essential hypertension Qualified Code(s): I10 - Essential (primary) hypertension (3) Acute hypoxemic respiratory failure due to COVID-19: Status: Acute (4) Atrial fibrillation: Status: Acute Qualifiers: Atrial fibrillation type: unspecified chronic Qualified Code(s): I48.20 - Chronic atrial fibrillation, unspecified (5) COVID-19: Status: Acute Additional A&P Information Acute hypoxia related to COVID-19 Oxygen, increased to heated high flow today For increased weakness and lethargy I have encouraged patient to work with our physical therapy A. fib with acute RVR Started p.o. Cardizem 30 mg every 6, received 5 mg IV push of Cardizem as well current heart rate in 120s normal blood pressure No active chest pain Weakness and lethargy related to COVID-19 PT evaluation Supratherapeutic INR INR pending today currently Coumadin is on hold Hypokalemia: Potassium repleted Full code DVT prophylaxis contraindicated due to supratherapeutic INR Cardiac diet Attestations Medical Necessity Statement*: Continue medical management for COVID-19 hypoxia Time Spent in Patient Care: 16 - 35 minutes Coding Level of Care Code Acute Preschool Assistant for g Fwd Diagnoses Supratherapeutic INR R79.1 Hypertension I10 Hypertension type: essential hypertension Acute hypoxemic respiratory failure due to COVID-19 U07.1; J96.01 Atrial fibrillation I48.20 Atrial fibrillation type: unspecified chronic COVID-19 U07.1
--- NOTE | 2021-03-27 12:54 | PC.RESP ---
Pt with hr 160, sats 85. Placed pt on 10lpm high flow nc with no improvement. Pt placed on heated high flow at 45lpm and 80% fio2.
[2021-03-27 13:10] LABS: INR 10.67 (0.8-1.2)
[2021-03-27] MEDS: dilTIAZem 30 mg Tablet PO (13:38)
[2021-03-27] MEDS: methylphenidate 10 mg Tablet 5 MG PO (17:28)
[2021-03-27] MEDS: remdesivir 100 MG in sodium chloride 0.9% (100 ml) 100 ML IV (17:30)
[2021-03-27] MEDS: dexamethasone 4 mg/mL INJ 6 MG IVP (22:37)
[2021-03-28] VITALS (41 sets, daily range): BP systolic 93–153; BP diastolic 51–93; PULSE 52–87; RESP 20–23; TEMP 36.6–36.8; O2SAT 84–96
[2021-03-28] MEDS: ipratropium-albuterol 3 mL Neb INHALATION ×4 (02:10→20:05)
[2021-03-28 05:24] LABS: Basophils % 0.2 %; Hematocrit 41.3 % (37.0-47.0); Hemoglobin 13.6 g/dL (11.5-15.3); Lymphocytes # 0.4 10^3/uL (0.8-4.8); Lymphocytes % 6.5 %; Mean Corpuscular HGB Conc 32.9 g/dL (30.0-36.0); Mean Corpuscular Hemoglobin 30.1 pg (28.0-34.0); Mean Corpuscular Volume 91.4 fl (81-99); Monocytes # 0.2 10^3/uL (0.2-0.9); Neutrophils # 4.87 10^3/uL (1.8-7.7); Nucleated Red Blood Cells % 0 %; Platelet Count 337 10^3/cmm (130-400); Red Blood Count 4.52 10^6/uL (4.1-5.3); White Blood Count 5.5 10^3/uL (4.0-10.0)
[2021-03-28 05:44] LABS: Anion Gap 11.6 (5-19); Blood Urea Nitrogen 24 mg/dL (8-23); C Reactive Protein 23.3 mg/L (0.0-4.9); Calcium 10.5 mg/dL (8.5-10.5); Carbon Dioxide 33 mmol/L (22-29); Chloride 105 mmol/L (98-107); Glomerular Filtration Rate 122.3 mL/min (90-130); Glucose 142 mg/dL (65-115); Osmolality Calculated 308 mOsm/kg (285-295); Potassium 3.6 mmol/L (3.5-5.1); Sodium 146 mmol/L (136-145)
[2021-03-28 06:13] LABS: INR 8.77 (0.8-1.2)
[2021-03-28] MEDS: pantoprazole DR 40 mg Tablet PO (08:59)
[2021-03-28] MEDS: methylphenidate 10 mg Tablet 5 MG PO ×2 (08:59→16:49)
[2021-03-28] MEDS: atorvastatin 40 mg Tablet 20 MG PO (09:00)
[2021-03-28] MEDS: propafenone 150 mg Tablet PO (09:00)
[2021-03-28] MEDS: budesonide 0.5 mg/2 mL Neb INHALATION ×2 (09:26→20:05)
[2021-03-28 11:09] LABS: Magnesium 2.6 mg/dL (1.7-2.3); Thyroid Stimulating Hormone 0.13 uIU/mL (0.27-4.20)
--- NOTE | 2021-03-28 12:58 | P.PN_ITS ---
Subjective Subjective: Interval history: Patient was seen and examined this morning, yesterday she required Cardizem for A. fib RVR however did not require Cardizem gtt. her heart rate stayed between 55-60s Vitals/I&O/Wt Last Vital Signs Temp 98.2 F 03/28/21 12:00 Pulse 55 L 03/28/21 12:00 Resp 20 H 03/28/21 12:00 BP 133/74 03/28/21 12:00 Pulse Ox 90 03/28/21 12:00 03/27/21 03/28/21 03/28/21 22:59 06:59 14:59 Intake Total 132.833 / 252.833 Output Total 350 / 350 Balance 132.833 / 252.833 -350 / -97.167 Physical Exam Narrative: EXAM NARRATIVE: Patient was laying comfortably in her bed saturating well on 3 L nasal cannula Saturating 94% Still complaining of lethargy, fatigue and anorexia EOMI, PERRLA no neurological deficits Abdomen soft S1, S2 variable no active signs of heart failure Bilateral breath sounds with mild rhonchi at the bases Data : 03/28/21 04:37 03/28/21 04:37 A&P Assessment and plan (1) Supratherapeutic INR: Status: Acute (2) Hypertension: Status: Acute Qualifiers: Hypertension type: essential hypertension Qualified Code(s): I10 - Essential (primary) hypertension (3) Acute hypoxemic respiratory failure due to COVID-19: Status: Acute (4) Atrial fibrillation: Status: Acute Qualifiers: Atrial fibrillation type: unspecified chronic Qualified Code(s): I48.20 - Chronic atrial fibrillation, unspecified (5) COVID-19: Status: Acute Additional A&P Information Persistent hypoxia related to COVID-19 However oxygen requirement has not worsened, she is saturating well on 3 L nasal cannula, I want to discharge this patient today but she is complaining of ex treme lethargy and fatigue and stating that she will not be able to go home today I would continue her remdesivir, and Decadron for now not a candidate of interleukin-6 inhibitor Supratherapeutic INR INR today 8.7 no active bleeding hemoglobin 13 Poor p.o. intake getting dehydrated sodium 146, alkalosis noted bicarb 33 Encourage p.o. intake Judicious use of fluids, discontinue hydrochlorothiazide A. fib with slow ventricular response continue propafenone, Bradycardia, TSH 0.13 we will check free T4 Full code Cardiac diet DVT prophylaxis not needed she is hypertherapeutic I have try to get in touch with her sister however no voicemail set up, I also tried to call from patient's cell phone, I was not able to get a hold of her, Attestations Medical Necessity Statement*: Anticipating discharge within 48 hours Time Spent in Patient Care: less than 15 minutes Coding Level of Care Code Acute Telephone Information Clerk for Chg Fwd Diagnoses Supratherapeutic INR R79.1 Hypertension I10 Hypertension type: essential hypertension Acute hypoxemic respiratory failure due to COVID-19 U07.1; J96.01 Atrial fibrillation I48.20 Atrial fibrillation type: unspecified chronic COVID-19 U07.1
--- NOTE | 2021-03-28 13:32 | PC.RESP ---
Pt up to chair, pt somnolent and is reluctant to open eyes or eat. Saturations 85% on 6lpm.
--- NOTE | 2021-03-28 14:05 | PC.SOCIAL ---
IMM update IMM updated with patient. Verbalized an understanding. Initialled, dated, timed, and placed in chart.
[2021-03-28 15:23] LABS: Free T4 Free Thyroxine 1.55 ng/dL (0.82-1.77)
[2021-03-28] MEDS: dextrose 5%-sod chloride 0.45% 1,000 ML 75 ML IV (16:49)
[2021-03-28] MEDS: remdesivir 100 MG in sodium chloride 0.9% (100 ml) 100 ML IV (17:58)
--- NOTE | 2021-03-28 18:28 | PC.NURSE ---
Frequent safety and comfort rounds continue. Orders and/or nursing care completed as indicated. Patient monitored for response to intervention and treatment(s). Education provided includes on all medications given. Patient verbalizes understanding. Will continue to monitor
[2021-03-28] MEDS: dexamethasone 4 mg/mL INJ 6 MG IVP (22:09)
[2021-03-29] VITALS (30 sets, daily range): BP systolic 123–165; BP diastolic 52–127; PULSE 50–104; RESP 18–21; TEMP 36–36.9; O2SAT 76–95
[2021-03-29] MEDS: ipratropium-albuterol 3 mL Neb INHALATION ×3 (03:30→20:05)
[2021-03-29 04:43] LABS: Basophils % 0.2 %; Hematocrit 40.3 % (37.0-47.0); Hemoglobin 13.6 g/dL (11.5-15.3); Lymphocytes # 0.5 10^3/uL (0.8-4.8); Mean Corpuscular HGB Conc 33.7 g/dL (30.0-36.0); Mean Corpuscular Hemoglobin 30.6 pg (28.0-34.0); Mean Corpuscular Volume 90.8 fl (81-99); Mean Platelet Volume 9.6 fL (7.4-10.4); Monocytes # 0.2 10^3/uL (0.2-0.9); Monocytes % 3.8 %; Neutrophils # 5.07 10^3/uL (1.8-7.7); Neutrophils % 84.8 %; Nucleated Red Blood Cells % 0 %; Platelet Count 347 10^3/cmm (130-400); Red Blood Count 4.44 10^6/uL (4.1-5.3); Red Cell Distribution Width 12.9 % (12.1-15.1)
[2021-03-29 05:26] LABS: Anion Gap 12.4 (5-19); Blood Urea Nitrogen 27 mg/dL (8-23); Calcium 9.9 mg/dL (8.5-10.5); Carbon Dioxide 30 mmol/L (22-29); Chloride 106 mmol/L (98-107); Glomerular Filtration Rate 122.3 mL/min (90-130); Glucose 171 mg/dL (65-115); Osmolality Calculated 309 mOsm/kg (285-295); Potassium 3.4 mmol/L (3.5-5.1); Sodium 145 mmol/L (136-145)
--- NOTE | 2021-03-29 06:18 | PC.NURSE ---
patient has been unremarkable this shift resting quietly for the greater part of it VS stable
[2021-03-29 06:21] LABS: INR 10.22 (0.8-1.2)
[2021-03-29] MEDS: budesonide 0.5 mg/2 mL Neb INHALATION ×2 (08:15→20:05)
[2021-03-29] MEDS: methylphenidate 10 mg Tablet 5 MG PO (08:16)
[2021-03-29] MEDS: atorvastatin 40 mg Tablet 20 MG PO (08:16)
[2021-03-29] MEDS: propafenone 150 mg Tablet PO (08:17)
[2021-03-29] MEDS: pantoprazole DR 40 mg Tablet PO (08:17)
--- NOTE | 2021-03-29 08:42 | PC.CHAP ---
Pastoral Care Encounter/Spiritual Assessment Type of Contact [] Declined delivery specialist visit [] Patient/Family/Request visit [] Outpatient visit [] Follow-up visit [] Physician referral [] Code/Alert [x] Routine visit [] Staff referral [] Actively dying [] Patient sleeping [] Family support [] [] Out of room [] Palliative care [] [] Receiving care in room [] Pre-surgical visit [] Trauma [] Long length of stay [] ICU visit [x] Other: 2a served breakfast Relational/Emotional Strength [] Patient feels connected with others/family/visitors/staff [] Distress [] Loneliness/isolation [] Abandonment Spirituality of Patient [] Person of Claudine [] Attends Mormon of their Claudine [] Believes in Prayer [] Reads Bible or Adventism materials [] There are Spiritual issues to be addressed Forestry Scientist Interventions [x] Prayer [] Active listening [] Non-anxious presence [] Spiritual/emotional support [] Crisis/trauma care [] Spiritual counseling [] Bereavement support [] Provided bereavement packet [] Provided Bible/devotional materials [] Provided toy/stuffed animal, coloring book to patient or family member [] Provided Communion [] Anointing/[place] [] Salvation [x] Completed spiritual assessment [] Other: Impact on Illness or Injury [] Angry [] Fearful [] Anxious [] Often cries [] Exhaustion [] Unable to work [] Unable to attend orthodox [] Unable to walk/stand [] Unable to read [] Unable to drive [] Unable to eat/drink [] Unable to sleep [] Unable to be with family [] Patient intubated [] Other: Summary Time spent with patient
--- NOTE | 2021-03-29 14:05 | PC.NUTR ---
Nutrition follow up: Nurse reports pt does drink Ensure at times, but typically not eating much at meals. Will clarify supplement to Ensure Plus with meals. Recommend to continue to encourage po intakes of meals/supplements and provide preferences as available to optimize nutrition. See full RD assessment for further details.
--- NOTE | 2021-03-29 16:23 | PM.PN ---
Subjective Subjective: Interval history: At rest needs 4 to 6 L nasal cannula however on ambulation he was placed on nonrebreather mask 15 L sats 85 to 86% Patient still complaining of lethargy and fatigue, does not really cooperate during my evaluation she keeps her eyes closed Vitals/I&O/Wt Last Vital Signs Temp 97.8 F 03/29/21 12:00 Pulse 104 H 03/29/21 14:00 Resp 18 03/29/21 12:00 BP 125/68 03/29/21 12:00 Pulse Ox 93 03/29/21 12:00 03/29/21 03/29/21 03/29/21 06:59 14:59 22:59 Intake Total 1100 / 1100 Output Total 300 / 300 Balance 800 / 800 Physical Exam Narrative: EXAM NARRATIVE: Patient was seen and examined this morning She was very lethargic and fatigued, she was in right lateral position was not able to make eye contact however stating that she is not ready to go home Abdomen soft S1, S2 variable No signs of congestive heart failure Bilateral breath sounds with rhonchi with crepitations Oriented to herself No active neurological deficits Data : 03/29/21 04:30 03/29/21 04:30 A&P Assessment and plan (1) Supratherapeutic INR: Status: Acute (2) Hypertension: Status: Acute Qualifiers: Hypertension type: essential hypertension Qualified Code(s): I10 - Essential (primary) hypertension (3) Acute hypoxemic respiratory failure due to COVID-19: Status: Acute (4) Atrial fibrillation: Status: Acute Qualifiers: Atrial fibrillation type: unspecified chronic Qualified Code(s): I48.20 - Chronic atrial fibrillation, unspecified (5) COVID-19: Status: Acute (6) Hypokalemia: Status: Acute Additional A&P Information COVID-19 related persistent hypoxia Currently requiring 15 L nonrebreather mask however at rest she does well with nasal cannula 4 to 6 L Continue remdesivir and Decadron Not a candidate of interleukin-6 inhibitor Out of bed to chair, PT on daily basis Add multivitamin, appreciate recommendations from dietitian I have been trying to get in touch with her Sister Lizeth her voicemail has not been set up I tried to call from patient's cell phone and was unsuccessful however nurse has talked with her sister at some point yesterday Sunny franz Continue propafenone check magnesium and potassium level on daily basis She is still supratherapeutic INR is 10 she is not getting any Coumadin Hypokalemia: Repleted Full code Cardiac diet DVT prophylaxis she is supratherapeutic we will needed once INR less than 3 Attestations Medical Necessity Statement*: Continue Covid unit management Time Spent in Patient Care: less than 15 minutes Coding Level of Care Code Acute Title Curative Specialist for Chg Fwd Diagnoses Supratherapeutic INR R79.1 Hypertension I10 Hypertension type: essential hypertension Acute hypoxemic respiratory failure due to COVID-19 U07.1; J96.01 Atrial fibrillation I48.20 Atrial fibrillation type: unspecified chronic COVID-19 U07.1 Hypokalemia E87.6
[2021-03-29] MEDS: ascorbic acid 500 mg Tablet PO (17:32)
[2021-03-29] MEDS: remdesivir 100 MG in sodium chloride 0.9% (100 ml) 100 ML IV (17:32)
[2021-03-29] MEDS: potassium chloride ER 20 mEq Tablet 40 MEQ PO (17:32)
[2021-03-29] MEDS: dexamethasone 4 mg/mL INJ 6 MG IVP (21:52)
[2021-03-30] VITALS (34 sets, daily range): BP systolic 89–147; BP diastolic 47–79; PULSE 52–91; RESP 16–28; TEMP 36.4–37; O2SAT 78–97
[2021-03-30] MEDS: ipratropium-albuterol 3 mL Neb INHALATION ×4 (02:25→22:47)
--- NOTE | 2021-03-30 06:02 | PC.NURSE ---
Shift Note Frequent safety and comfort rounds continue. Pt was not always willing to cooperate with care. Orders and/or nursing care completed as indicated. Patient monitored for response to intervention and treatment(s). Education provided includes importance of wearing her oxygen. Patient needs reinforcement. Will continue to monitor.
[2021-03-30 06:40] LABS: D Dimer <= 0.27 ug/mIFEU (0-0.59)
[2021-03-30 06:50] LABS: Blood Urea Nitrogen 23 mg/dL (8-23); C Reactive Protein 12.2 mg/L (0.0-4.9); Calcium 10.3 mg/dL (8.5-10.5); Carbon Dioxide 32 mmol/L (22-29); Chloride 109 mmol/L (98-107); Glomerular Filtration Rate 99.1 mL/min (90-130); Glucose 130 mg/dL (65-115); Magnesium 2.2 mg/dL (1.7-2.3); Osmolality Calculated 311 mOsm/kg (285-295); Sodium 148 mmol/L (136-145)
[2021-03-30 07:01] LABS: INR 9.06 (0.8-1.2)
--- NOTE | 2021-03-30 08:32 | PC.CHAP ---
Pastoral Care Encounter/Spiritual Assessment Type of Contact [] Declined land checker visit [] Patient/Family/Request visit [] Outpatient visit [] Follow-up visit [] Physician referral [] Code/Alert [x] Routine visit [] Staff referral [] Actively dying [x ] Patient sleeping [] Family support [] [] Out of room [] Palliative care [] [] Receiving care in room [] Pre-surgical visit [] Trauma [] Long length of stay [] ICU visit [x] Other: 2a served breakfast Relational/Emotional Strength [] Patient feels connected with others/family/visitors/staff [] Distress [] Loneliness/isolation [] Abandonment Spirituality of Patient [] Person of Claudine [] Attends Gnosticist of their Claudine [] Believes in Prayer [] Reads Bible or Church materials [] There are Spiritual issues to be addressed Information Systems Consultant Interventions [x] Prayer [] Active listening [] Non-anxious presence [] Spiritual/emotional support [] Crisis/trauma care [] Spiritual counseling [] Bereavement support [] Provided bereavement packet [] Provided Bible/devotional materials [] Provided toy/stuffed animal, coloring book to patient or family member [] Provided Communion [] Anointing/[place] [] Salvation [x] Completed spiritual assessment [] Other: Impact on Illness or Injury [] Angry [] Fearful [] Anxious [] Often cries [] Exhaustion [] Unable to work [] Unable to attend mandaen [] Unable to walk/stand [] Unable to read [] Unable to drive [] Unable to eat/drink [] Unable to sleep [] Unable to be with family [] Patient intubated [] Other: Summary Time spent with patient
[2021-03-30] MEDS: budesonide 0.5 mg/2 mL Neb INHALATION ×2 (08:35→22:46)
[2021-03-30] MEDS: pantoprazole DR 40 mg Tablet PO (08:56)
[2021-03-30] MEDS: atorvastatin 40 mg Tablet 20 MG PO (08:56)
[2021-03-30] MEDS: ascorbic acid 500 mg Tablet PO ×2 (08:56→18:26)
[2021-03-30] MEDS: zinc gluconate 50 mg Tablet PO (08:56)
[2021-03-30] MEDS: cholecalciferol (vitamin D3) 1,000 unit Tablet 1000 UNIT PO (08:56)
[2021-03-30] MEDS: propafenone 150 mg Tablet PO (08:56)
--- NOTE | 2021-03-30 09:20 | PC.SOCIAL ---
IMM Update Page 2 of [facility] updated and reviewed with patient over the phone. Verbalized understanding.
--- NOTE | 2021-03-30 13:10 | PM.PN ---
Subjective Subjective: Interval history: Patient was seen and examined this morning, continues to require high supplemental oxygen, currently on heated high flow oxygen through nasal cannula, 60% FiO2 and 40 L/min. Her other vitals and labs have been reviewed. Medications: Reviewed: Yes Vitals/I&O/Wt Last Vital Signs Temp 97.7 F 03/30/21 12:00 Pulse 70 03/30/21 12:00 Resp 22 H 03/30/21 12:00 BP 146/59 03/30/21 12:00 Pulse Ox 94 03/30/21 12:00 03/29/21 03/30/21 03/30/21 22:59 06:59 14:59 Intake Total 220 / 1320 20 / 1340 Output Total 400 / 700 Balance 220 / 1020 -380 / 640 Physical Exam Const: COMMON NORMALS: patient oriented x3 HENMT: COMMON NORMALS: normocephalic and atraumatic HEAD & SCALP: normocephalic and atraumatic Resp: OTHER: Diminished air entry bilaterally Cardio: COMMON NORMALS: regular rate, regular rhythm, S1 normal heart sound present, S2 normal heart sound present, No gallops present (Cardio), No murmurs present (Cardio), No rub (Cardio) and Peripheral pulses 2+ throughout RATE: regular rate RHYTHM: regular rhythm HEART SOUNDS: S1 normal heart sound present and S2 normal heart sound present PERIPHERAL PULSES: Peripheral pulses 2+ throughout GI: COMMON NORMALS: Normal to inspection, nondistended, normoactive bowel sounds present, Soft to palpation, non-tender, No hepatosplenomegaly present and no masses AUSCULTATION: Yes normoactive bowel sounds PALPATION: Yes Soft to palpation and Yes No hepatosplenomegaly present RECTAL EXAM: deferred Extremity: COMMON NORMALS: no clubbing, cyanosis or edema and no pedal edema Neuro: COMMON NORMALS: patient oriented x3 Data : 03/29/21 04:30 03/30/21 06:00 A&P Assessment and plan (1) Supratherapeutic INR: As above Status: Acute (2) Hypertension: Continue hydrochlorothiazide Status: Acute Qualifiers: Hypertension type: essential hypertension Qualified Code(s): I10 - Essential (primary) hypertension (3) Acute hypoxemic respiratory failure due to COVID-19: Remdisivir 200mg iv x 1 followed by 100mg iv daily dexamethasone 6mg IVP daily duoneb q6h, budesonide q12h empiric CTX and azithromycin Flutter valve/spirometer at bedside trend inflammatory markers including CRP, LDH, D dimer, Ferritin Low suspicion for PE given that patient is already on warfarin and is currently supratherapeutic INR Supplemental O2 to keep saturation greater than 92% Status: Acute (4) Atrial fibrillation: Currently in sinus rhythm, rate control Continue propafenone at home dose Holding Coumadin for now, patient states her goal INR is between 2.5-3.5 Recheck INR with a.m. labs Status: Acute Qualifiers: Atrial fibrillation type: unspecified chronic Qualified Code(s): I48.20 - Chronic atrial fibrillation, unspecified (5) COVID-19: Status: Acute (6) Hypokalemia: Status: Acute Additional A&P Information COVID-19 related persistent hypoxia Currently requiring 15 L nonrebreather mask however at rest she does well with nasal cannula 4 to 6 L Continue remdesivir and Decadron Not a candidate of interleukin-6 inhibitor Out of bed to chair, PT on daily basis Add multivitamin, appreciate recommendations from dietitian I have been trying to get in touch with her Sister Lizeth her voicemail has not been set up I tried to call from patient's cell phone and was unsuccessful however nurse has talked with her sister at some point yesterday A. fib Continue propafenone check magnesium and potassium level on daily basis She is still supratherapeutic INR is 10 she is not getting any Coumadin Hypokalemia: Repleted Full code Cardiac diet DVT prophylaxis she is supratherapeutic we will needed once INR less than 3 Attestations Medical Necessity Statement*: Patient needs to be in hospital for management of Covid pneumonia. Coding Level of Care Code Acute Division Commander for g Fwd Diagnoses Supratherapeutic INR R79.1 Hypertension I10 Hypertension type: essential hypertension Acute hypoxemic respiratory failure due to COVID-19 U07.1; J96.01 Atrial fibrillation I48.20 Atrial fibrillation type: unspecified chronic COVID-19 U07.1 Hypokalemia E87.6
--- NOTE | 2021-03-30 14:55 | PC.RESP ---
RT Shift Note Frequent safety and respiratory rounds continue. Orders completed as indicated. Patient monitored pre and post treatments throughout shift. Patient tolerated treatments appropriately. Condition did not change. Patient and/or installation service representative educated on respiratory treatment and medications. Patient and/or installation service representative verbalized understanding. Will continue to monitor patient progress.
[2021-03-30] MEDS: remdesivir 100 MG in sodium chloride 0.9% (100 ml) 100 ML IV (18:26)
--- NOTE | 2021-03-30 19:38 | PC.NURSE ---
Shift Note Frequent safety and comfort rounds continue. Orders and/or nursing care completed as indicated. Patient monitored for response to intervention and treatment. Patient had an uneventful day. Rested in bed throughout entire shift. Received meds as ordered. Patient is lacks motivation, and does not seem to be an active participant in care. Nurse, as well as RT, and physical therapy have expressed the importance of activity without success. Patient's family called and explained that this is common for the patient and they have also attempted to call her to offer encouragement, but she ignores the calls.
[2021-03-30] MEDS: dexamethasone 4 mg/mL INJ 6 MG IVP (21:31)
[2021-03-31] VITALS (19 sets, daily range): BP systolic 102–123; BP diastolic 57–80; PULSE 57–94; RESP 16–28; TEMP 36.8–37.3; O2SAT 87–96
[2021-03-31] MEDS: ipratropium-albuterol 3 mL Neb INHALATION ×4 (03:15→20:20)
[2021-03-31 06:20] LABS: Basophils % 0.2 %; Hematocrit 41.6 % (37.0-47.0); Hemoglobin 13.8 g/dL (11.5-15.3); Lymphocytes # 0.6 10^3/uL (0.8-4.8); Lymphocytes % 5.8 %; Mean Corpuscular HGB Conc 33.2 g/dL (30.0-36.0); Mean Corpuscular Hemoglobin 30.7 pg (28.0-34.0); Mean Corpuscular Volume 92.7 fl (81-99); Mean Platelet Volume 9.9 fL (7.4-10.4); Monocytes # 0.4 10^3/uL (0.2-0.9); Monocytes % 3.3 %; Neutrophils # 9.12 10^3/uL (1.8-7.7); Neutrophils % 86.2 %; Nucleated Red Blood Cells % 0.2 %; Platelet Count 393 10^3/cmm (130-400); Red Blood Count 4.49 10^6/uL (4.1-5.3); Red Cell Distribution Width 12.7 % (12.1-15.1); White Blood Count 10.6 10^3/uL (4.0-10.0)
[2021-03-31 06:40] LABS: INR 8.94 (0.8-1.2)
[2021-03-31 06:41] LABS: Anion Gap 9.3 (5-19); Blood Urea Nitrogen 25 mg/dL (8-23); Calcium 10.1 mg/dL (8.5-10.5); Carbon Dioxide 33 mmol/L (22-29); Chloride 107 mmol/L (98-107); Glomerular Filtration Rate 122.3 mL/min (90-130); Glucose 140 mg/dL (65-115); Magnesium 2.4 mg/dL (1.7-2.3); Osmolality Calculated 307 mOsm/kg (285-295); Potassium 4.3 mmol/L (3.5-5.1); Sodium 145 mmol/L (136-145)
[2021-03-31] MEDS: propafenone 150 mg Tablet PO (07:33)
[2021-03-31] MEDS: atorvastatin 40 mg Tablet 20 MG PO (07:33)
[2021-03-31] MEDS: pantoprazole DR 40 mg Tablet PO (07:34)
[2021-03-31] MEDS: ascorbic acid 500 mg Tablet PO ×2 (07:34→17:39)
[2021-03-31] MEDS: cholecalciferol (vitamin D3) 1,000 unit Tablet 1000 UNIT PO (07:34)
[2021-03-31] MEDS: zinc gluconate 50 mg Tablet PO (07:34)
--- NOTE | 2021-03-31 08:29 | PC.CHAP ---
Pastoral Care Encounter/Spiritual Assessment Type of Contact [] Declined waiter and cashier visit [] Patient/Family/Request visit [] Outpatient visit [] Follow-up visit [] Physician referral [] Code/Alert [x] Routine visit [] Staff referral [] Actively dying [x] Patient sleeping [] Family support [] [] Out of room [] Palliative care [] [] Receiving care in room [] Pre-surgical visit [] Trauma [] Long length of stay [] ICU visit [x] Other:x2a served breakfast Relational/Emotional Strength [] Patient feels connected with others/family/visitors/staff [] Distress [] Loneliness/isolation [] Abandonment Spirituality of Patient [] Person of Claudine [] Attends Restorationism of their Claudine [] Believes in Prayer [] Reads Bible or Moravian materials [] There are Spiritual issues to be addressed Lead Nuclear Medicine Technologist Interventions [x] Prayer [] Active listening [] Non-anxious presence [] Spiritual/emotional support [] Crisis/trauma care [] Spiritual counseling [] Bereavement support [] Provided bereavement packet [] Provided Bible/devotional materials [] Provided toy/stuffed animal, coloring book to patient or family member [] Provided Communion [] Anointing/[place] [] Salvation [x] Completed spiritual assessment [] Other: Impact on Illness or Injury [] Angry [] Fearful [] Anxious [] Often cries [] Exhaustion [] Unable to work [] Unable to attend episcopalian [] Unable to walk/stand [] Unable to read [] Unable to drive [] Unable to eat/drink [] Unable to sleep [] Unable to be with family [] Patient intubated [] Other: Summary Time spent with patient
[2021-03-31] MEDS: budesonide 0.5 mg/2 mL Neb INHALATION ×2 (08:44→20:20)
--- NOTE | 2021-03-31 08:57 | XR_ITS ---
WS: [id number] Portable AP upright chest, 03/31/2021 Clinical Data: PNA Comparison: Portable chest, 03/25/2021. Findings: The bilateral lower lobe patchy opacities in both lungs remain the same. The heart is sligh tly dilated. Monitor leads are on the chest wall. No nodules, masses or effusions are seen. XR/XR chest 1V portable [id number] Impression: No change in bilateral patchy pulmonary opacities consistent with pneumonia.
--- NOTE | 2021-03-31 19:08 | PC.NURSE ---
Report to Yara CANNON at this time.
--- NOTE | 2021-03-31 19:48 | P.PN_ITS ---
Subjective Subjective: Interval history: Patient was seen and examined this morning, continues to require high supplemental oxygen, currently on heated high flow oxygen through nasal cannula, 60% FiO2 and 40 L/min. Medications: Reviewed: Yes Vitals/I&O/Wt Last Vital Signs Temp 98.8 F 03/31/21 15:54 Pulse 66 03/31/21 17:05 Resp 18 03/31/21 17:05 BP 112/62 03/31/21 15:54 Pulse Ox 95 03/31/21 17:05 03/31/21 03/31/21 03/31/21 06:59 14:59 22:59 Intake Total 120 / 220 Output Total 700 / 700 Balance -580 / -480 Physical Exam Const: COMMON NORMALS: patient oriented x3 HENMT: COMMON NORMALS: normocephalic and atraumatic HEAD & SCALP: normocephalic and atraumatic Resp: OTHER: Diminished air entry bilaterally Cardio: COMMON NORMALS: regular rate, regular rhythm, S1 normal heart sound present, S2 normal heart sound present, No gallops present (Cardio), No murmurs present (Cardio), No rub (Cardio) and Peripheral pulses 2+ throughout RATE: regular rate RHYTHM: regular rhythm HEART SOUNDS: S1 normal heart sound present and S2 normal heart sound present PERIPHERAL PULSES: Peripheral pulses 2+ throughout GI: COMMON NORMALS: Normal to inspection, nondistended, normoactive bowel sounds present, Soft to palpation, non-tender, No hepatosplenomegaly present and no masses AUSCULTATION: Yes normoactive bowel sounds PALPATION: Yes Soft to palpation and Yes No hepatosplenomegaly present RECTAL EXAM: deferred Extremity: COMMON NORMALS: no clubbing, cyanosis or edema and no pedal edema Neuro: COMMON NORMALS: patient oriented x3 Data : 03/31/21 06:04 03/31/21 06:04 A&P Assessment and plan (1) Supratherapeutic INR: As above Status: Acute (2) Hypertension: Continue hydrochlorothiazide Status: Acute Qualifiers: Hypertension type: essential hypertension Qualified Code(s): I10 - Essential (primary) hypertension (3) Acute hypoxemic respiratory failure due to COVID-19: Remdisivir 200mg iv x 1 followed by 100mg iv daily dexamethasone 6mg IVP daily duoneb q6h, budesonide q12h empiric CTX and azithromycin Flutter valve/spirometer at bedside trend inflammatory markers including CRP, LDH, D dimer, Ferritin Low suspicion for PE given that patient is already on warfarin and is currently supratherapeutic INR Supplemental O2 to keep saturation greater than 92% Status: Acute (4) Atrial fibrillation: Currently in sinus rhythm, rate control Continue propafenone at home dose Holding Coumadin for now, patient states her goal INR is between 2.5-3.5 Recheck INR with a.m. labs Status: Acute Qualifiers: Atrial fibrillation type: unspecified chronic Qualified Code(s): I48.20 - Chronic atrial fibrillation, unspecified (5) COVID-19: Status: Acute (6) Hypokalemia: Status: Acute Additional A&P Information COVID-19 related persistent hypoxia Currently requiring 15 L nonrebreather mask however at rest she does well with nasal cannula 4 to 6 L Continue remdesivir and Decadron Not a candidate of interleukin-6 inhibitor Out of bed to chair, PT on daily basis Add multivitamin, appreciate recommendations from dietitian I have been trying to get in touch with her Sister Lizeth her voicemail has not been set up I tried to call from patient's cell phone and was unsuccessful however nurse has talked with her sister at some point yesterday A. fib Continue propafenone check magnesium and potassium level on daily basis She is still supratherapeutic INR is 10 she is not getting any Coumadin Hypokalemia: Repleted Full code Cardiac diet DVT prophylaxis she is supratherapeutic we will needed once INR less than 3 Attestations Medical Necessity Statement*: Patient needs to be in hospital for management of Covid pneumonia. Coding Level of Care Code Acute Food Expeditor for Rajendra Dunaway Diagnoses Supratherapeutic INR R79.1 Hypertension I10 Hypertension type: essential hypertension Acute hypoxemic respiratory failure due to COVID-19 U07.1; J96.01 Atrial fibrillation I48.20 Atrial fibrillation type: unspecified chronic COVID-19 U07.1 Hypokalemia E87.6
[2021-03-31] MEDS: dexamethasone 4 mg/mL INJ 6 MG IVP (21:47)
[2021-04-01] VITALS (12 sets, daily range): BP systolic 95–124; BP diastolic 57–70; PULSE 60–73; RESP 17–32; TEMP 36.7–37; O2SAT 88–94
[2021-04-01] MEDS: ipratropium-albuterol 3 mL Neb INHALATION ×4 (02:45→20:51)
[2021-04-01 06:13] LABS: Basophils % 0.3 %; Hematocrit 38.2 % (37.0-47.0); Hemoglobin 12.7 g/dL (11.5-15.3); Lymphocytes # 0.4 10^3/uL (0.8-4.8); Lymphocytes % 4.4 %; Mean Corpuscular HGB Conc 33.2 g/dL (30.0-36.0); Mean Corpuscular Hemoglobin 30.1 pg (28.0-34.0); Mean Corpuscular Volume 90.5 fl (81-99); Mean Platelet Volume 10.3 fL (7.4-10.4); Monocytes # 0.2 10^3/uL (0.2-0.9); Monocytes % 2.1 %; Neutrophils # 8.99 10^3/uL (1.8-7.7); Neutrophils % 88.8 %; Nucleated Red Blood Cells % 0 %; Platelet Count 368 10^3/cmm (130-400); Red Blood Count 4.22 10^6/uL (4.1-5.3); Red Cell Distribution Width 12.8 % (12.1-15.1); White Blood Count 10.1 10^3/uL (4.0-10.0)
[2021-04-01 06:30] LABS: Anion Gap 11.9 (5-19); Blood Urea Nitrogen 18 mg/dL (8-23); Calcium 9.8 mg/dL (8.5-10.5); Carbon Dioxide 30 mmol/L (22-29); Chloride 102 mmol/L (98-107); Glomerular Filtration Rate 122.3 mL/min (90-130); Glucose 145 mg/dL (65-115); Magnesium 2.1 mg/dL (1.7-2.3); Osmolality Calculated 294 mOsm/kg (285-295); Potassium 3.9 mmol/L (3.5-5.1); Sodium 140 mmol/L (136-145)
--- NOTE | 2021-04-01 06:52 | PC.NURSE ---
Shift Note Frequent safety and comfort rounds continue. Orders and/or nursing care completed as indicated. Patient monitored for response to intervention and treatment(s). Education provided about medications, activity, oxygen safety, and reportable signs and symptoms. Patient and/or door to door sales representative verbalized understanding of all teaching.
[2021-04-01 07:38] LABS: INR 8.96 (0.8-1.2)
[2021-04-01] MEDS: propafenone 150 mg Tablet PO (08:32)
[2021-04-01] MEDS: zinc gluconate 50 mg Tablet PO (08:32)
[2021-04-01] MEDS: atorvastatin 40 mg Tablet 20 MG PO (08:32)
[2021-04-01] MEDS: pantoprazole DR 40 mg Tablet PO (08:33)
[2021-04-01] MEDS: cholecalciferol (vitamin D3) 1,000 unit Tablet 1000 UNIT PO (08:33)
[2021-04-01] MEDS: ascorbic acid 500 mg Tablet PO (08:33)
[2021-04-01] MEDS: budesonide 0.5 mg/2 mL Neb INHALATION ×2 (09:19→20:51)
--- NOTE | 2021-04-01 11:27 | PC.SOCIAL ---
IMM Update Page 2 of IMM updated and reviewed with patient over the phone. Verbalized understanding
--- NOTE | 2021-04-01 14:52 | P.PN_ITS ---
Subjective Subjective: Interval history: Patient was seen and examined this morning, supplemental requirement has decreased today, currently she is on high flow oxygen through nasal cannula. Medications: Reviewed: Yes Vitals/I&O/Wt Last Vital Signs Temp 98.4 F 04/01/21 12:00 Pulse 66 04/01/21 14:34 Resp 18 04/01/21 14:34 BP 100/62 04/01/21 12:00 Pulse Ox 90 04/01/21 14:34 03/31/21 04/01/21 04/01/21 22:59 06:59 14:59 Intake Total 250 / 250 360 / 360 Balance 250 / 250 360 / 360 Physical Exam Const: COMMON NORMALS: patient oriented x3 HENMT: COMMON NORMALS: normocephalic and atraumatic HEAD & SCALP: norm ocephalic and atraumatic Resp: OTHER: Diminished air entry bilaterally Cardio: COMMON NORMALS: regular rate, regular rhythm, S1 normal heart sound present, S2 normal heart sound present, No gallops present (Cardio), No murmurs present (Cardio), No rub (Cardio) and Peripheral pulses 2+ throughout RATE: regular rate RHYTHM: regular rhythm HEART SOUNDS: S1 normal heart sound present and S2 normal heart sound present PERIPHERAL PULSES: Peripheral pulses 2+ throughout GI: COMMON NORMALS: Normal to inspection, nondistended, normoactive bowel sounds present, Soft to palpation, non-tender, No hepatosplenomegaly present and no masses AUSCULTATION: Yes normoactive bowel sounds PALPATION: Yes Soft to palpation and Yes No hepatosplenomegaly present RECTAL EXAM: deferred Extremity: COMMON NORMALS: no clubbing, cyanosis or edema and no pedal edema Neuro: COMMON NORMALS: patient oriented x3 Data : 04/01/21 05:15 04/01/21 05:15 A&P Assessment and plan (1) Supratherapeutic INR: As above Status: Acute (2) Hypertension: Continue hydrochlorothiazide Status: Acute Qualifiers: Hypertension type: essential hypertension Qualified Code(s): I10 - Essential (primary) hypertension (3) Acute hypoxemic respiratory failure due to COVID-19: Remdisivir 200mg iv x 1 followed by 100mg iv daily dexamethasone 6mg IVP daily duoneb q6h, budesonide q12h empiric CTX and azithromycin Flutter valve/spirometer at bedside trend inflammatory markers including CRP, LDH, D dimer, Ferritin Low suspicion for PE given that patient is already on warfarin and is currently supratherapeutic INR Supplemental O2 to keep saturation greater than 92% Status: Acute (4) Atrial fibrillation: Currently in sinus rhythm, rate control Continue propafenone at home dose Holding Coumadin for now, patient states her goal INR is between 2.5-3.5 Recheck INR with a.m. labs Status: Acute Qualifiers: Atrial fibrillation type: unspecified chronic Qualified Code(s): I48.20 - Chronic atrial fibrillation, unspecified (5) COVID-19: Status: Acute (6) Hypokalemia: Status: Acute Additional A&P Information COVID-19 related persistent hypoxia Currently requiring 15 L nonrebreather mask however at rest she does well with nasal cannula 4 to 6 L Continue remdesivir and Decadron Not a candidate of interleukin-6 inhibitor Out of bed to chair, PT on daily basis Add multivitamin, appreciate recommendations from dietitian I have been trying to get in touch with her Sister Lizeth her voicemail has not been set up I tried to call from patient's cell phone and was unsuccessful however nurse has talked with her sister at some point yesterday A. fib Continue propafenone check magnesium and potassium level on daily basis She is still supratherapeutic INR is 10 she is not getting any Coumadin Hypokalemia: Repleted Full code Cardiac diet DVT prophylaxis she is supratherapeutic we will needed once INR less than 3 Attestations Medical Necessity Statement*: Patient needs to be in hospital for management of Covid pneumonia. 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
--- NOTE | 2021-04-01 19:28 | PC.NURSE ---
Report to Marilynn BERKOWITZ at this time.
[2021-04-02] VITALS (14 sets, daily range): BP systolic 96–119; BP diastolic 59–78; PULSE 55–90; RESP 16–28; TEMP 36.5–38; O2SAT 83–95
--- NOTE | 2021-04-02 00:35 | PC.NURSE ---
pt sleeping at this time.
[2021-04-02] MEDS: dexamethasone 4 mg/mL INJ 6 MG IVP ×2 (02:50→22:48)
--- NOTE | 2021-04-02 04:40 | PC.NURSE ---
Nurse responded to pt room for continuous pulse ox alarm, pt oxygen was 78% on 12L and pt RR was 22. Nurse turned PT oxygen to 15L high flow cannula, pt O2 improved to 80% PT was still SOB, Nurse then applied 15L non-rebreather over the 15L high flow cannula, pt O2 improved to 84%, this Nurse called respiratory to come assess pt and alerted Patient care nurse DAVIS Loco.
--- NOTE | 2021-04-02 05:26 | XRR_ITS ---
PROCEDURE INFORMATION: Exam: XR Chest Exam date and time: 04/02/2021 5:26 AM Age: 70 years old Clinical indication: Shortness of breath; Patient HX: Resp distress. Worsening hypoxia. Covid +. On bipap. TECHNIQUE: Imaging protocol: XR of the chest. Views: 1 view. COMPARISON: CR XR chest 1V portable [id number] 03/31/2021 9:14 AM FINDINGS: Lungs: Poor inspiration somewhat limits evaluation, especially of the lung bases. No definite CHF/pulmonary edema. Continued bilateral mid and lower lung opacities, compatible with diffuse pneumonitis. This has probably not significantly changed in the interval. Pleural spaces: No visible pneumothorax. No definite pleural fluid. Heart/Mediastinum: Heart size is upper normal/mildly prominent, not significantly changed. Bones/joints: No significant acute finding. XR/XR chest 1V portable [id number] IMPRESSION: 1. Continued bilateral lung opacities, without significant interval change. 2. Other findings discussed above.
[2021-04-02 05:42] LABS: Basophils % 0.3 %; Eosinophils # 0.1 10^3/uL (0.0-0.8); Hematocrit 40.3 % (37.0-47.0); Hemoglobin 13.3 g/dL (11.5-15.3); Lymphocytes # 0.6 10^3/uL (0.8-4.8); Lymphocytes % 5.2 %; Mean Corpuscular Hemoglobin 30.2 pg (28.0-34.0); Mean Corpuscular Volume 91.4 fl (81-99); Mean Platelet Volume 10.1 fL (7.4-10.4); Monocytes # 0.5 10^3/uL (0.2-0.9); Monocytes % 4.3 %; Neutrophils # 10.31 10^3/uL (1.8-7.7); Neutrophils % 84.7 %; Nucleated Red Blood Cells % 0 %; Platelet Count 385 10^3/cmm (130-400); Red Blood Count 4.41 10^6/uL (4.1-5.3); Red Cell Distribution Width 12.7 % (12.1-15.1); White Blood Count 12.2 10^3/uL (4.0-10.0)
[2021-04-02 05:58] LABS: INR 6.64 (0.8-1.2)
[2021-04-02 06:06] LABS: Anion Gap 12.7 (5-19); Blood Urea Nitrogen 22 mg/dL (8-23); Calcium 9.6 mg/dL (8.5-10.5); Carbon Dioxide 30 mmol/L (22-29); Chloride 102 mmol/L (98-107); Glomerular Filtration Rate 99.1 mL/min (90-130); Glucose 109 mg/dL (65-115); Magnesium 2.2 mg/dL (1.7-2.3); Osmolality Calculated 296 mOsm/kg (285-295); Potassium 3.7 mmol/L (3.5-5.1); Sodium 141 mmol/L (136-145)
[2021-04-02 06:10] LABS: Alanine Aminotransferase 9 U/L (0-33); Aspartate Amino Transferase 17 U/L (0-32); C Reactive Protein 32.4 mg/L (0.0-4.9); Gamma Glutamyl Transferase 13 U/L (5-36); Lactate Dehydrogenase 419 U/L (135-214); NT Pro B Type Natriuretic Pept 225 pg/mL (0-125)
[2021-04-02 06:15] LABS: ABG PH Result 7.48 (7.35-7.45); Arterial Blood Gas Hematocrit 43.8 % (37-47); Base Excess ABG 7.7 mmol/L (-2.0-2.0); Blood Gas Allen Test Pos; Blood Gas Sample Site Radial, left; Blood Gas Sample Type Arterial; HCO3 ABG 32.1 mmol/L (22-26); Oxygen Device BIPAP; PO2 ABG 81.6 mmHg (80.0-100.0)
--- NOTE | 2021-04-02 07:15 | PC.NURSE ---
this nurse called report to Danisha CANNON in ICU.
[2021-04-02] MEDS: ipratropium-albuterol 3 mL Neb INHALATION ×3 (09:14→20:00)
[2021-04-02] MEDS: budesonide 0.5 mg/2 mL Neb INHALATION ×2 (09:14→20:00)
[2021-04-02] MEDS: atorvastatin 40 mg Tablet 20 MG PO (09:15)
[2021-04-02] MEDS: cholecalciferol (vitamin D3) 1,000 unit Tablet 1000 UNIT PO (09:16)
[2021-04-02] MEDS: propafenone 150 mg Tablet PO (09:16)
[2021-04-02] MEDS: ascorbic acid 500 mg Tablet PO (09:16)
[2021-04-02] MEDS: zinc gluconate 50 mg Tablet PO (09:16)
[2021-04-02] MEDS: pantoprazole DR 40 mg Tablet PO (09:16)
--- NOTE | 2021-04-02 10:49 | P.PN_ITS ---
Subjective Subjective: Interval history: Patient was seen and examined this morning, overnight she again had desaturation, requiring her to be placed on BiPAP briefly.She was switched to heated high flow oxygen through nasal cannula during the daytime, currently she is requiring 70% FiO2, on heated high flow. Medications: Reviewed: Yes Vitals/I&O/Wt Last Vital Signs Temp 97.7 F 04/02/21 08:00 Pulse 55 L 04/02/21 09:27 Resp 18 04/02/21 09:27 BP 113/78 04/02/21 08:00 Pulse Ox 92 04/02/21 09:27 04/01/21 04/02/21 04/02/21 22:59 06:59 14:59 Output Total 400 / 400 Balance -400 / -400 Physical Exam Const: COMMON NORMALS: patient oriented x3 HENMT: COMMON NORMALS: normocephalic and atraumatic HEAD & SCALP: normocephalic and atraumatic Resp: OTHER: Diminished air entry bilaterally Cardio: COMMON NORMALS: regular rate, regular rhythm, S1 normal heart sound present, S2 normal heart sound present, No gallops present (Cardio), No murmurs present (Cardio), No rub (Cardio) and Peripheral pulses 2+ throughout RATE: regular rate RHYTHM: regular rhythm HEART SOUNDS: S1 normal heart sound present and S2 normal heart sound present PERIPHERAL PULSES: Peripheral pulses 2+ throughout GI: COMMON NORMALS: Normal to inspection, nondistended, normoactive bowel sounds present, Soft to palpation, non-tender, No hepatosplenomegaly present and no masses AUSCULTATION: Yes normoactive bowel sounds PALPATION: Yes Soft to palpation and Yes No hepatosplenomegaly present RECTAL EXAM: deferred Extremity: COMMON NORMALS: no clubbing, cyanosis or edema and no pedal edema Neuro: COMMON NORMALS: patient oriented x3 Data : 04/02/21 05:18 04/02/21 05:18 A&P Assessment and plan (1) Supratherapeutic INR: As above Status: Acute (2) Hypertension: Continue hydrochlorothiazide Status: Acute Qualifiers: Hypertension type: essential hypertension Qualified Code(s): I10 - Essential (primary) hypertension (3) Acute hypoxemic respiratory failure due to COVID-19: Remdisivir 200mg iv x 1 followed by 100mg iv daily dexamethasone 6mg IVP daily duoneb q6h, budesonide q12h empiric CTX and azithromycin Flutter valve/spirometer at bedside trend inflammatory markers including CRP, LDH, D dimer, Ferritin Low suspicion for PE given that patient is already on warfarin and is currently supratherapeutic INR Supplemental O2 to keep saturation greater than 92% Status: Acute (4) Atrial fibrillation: Currently in sinus rhythm, rate control Continue propafenone at home dose Holding Coumadin for now, patient states her goal INR is between 2.5-3.5 Recheck INR with a.m. labs Status: Acute Qualifiers: Atrial fibrillation type: unspecified chronic Qualified Code(s): I48.20 - Chronic atrial fibrillation, unspecified (5) COVID-19: Status: Acute (6) Hypokalemia: Status: Acute Additional A&P Information COVID-19 related persistent hypoxia Currently requiring 15 L nonrebreather mask however at rest she does well with nasal cannula 4 to 6 L Continue remdesivir and Decadron Not a candidate of interleukin-6 inhibitor Out of bed to chair, PT on daily basis Add multivitamin, appreciate recommendations from dietitian I have been trying to get in touch with her Sister Lizeth her voicemail has not been set up I tried to call from patient's cell phone and was unsuccessful however nurse has talked with her sister at some point yesterday A. 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
--- NOTE | 2021-04-02 15:33 | PC.CHAP ---
Pastoral Care Encounter/Spiritual Assessment Type of Contact [] Declined philosophy faculty member visit [] Patient/Family/Request visit [] Outpatient visit [xx] Follow-up visit [] Physician referral [] Code/Alert [] Routine visit [] Staff referral [] Actively dying [] Patient sleeping [] Family support [] [] Out of room [] Palliative care [] [] Receiving care in room [] Pre-surgical visit [] Trauma [xx] Long length of stay [] ICU visit [ ] Other: ISOLATION Relational/Emotional Strength [] Patient feels connected with others/family/visitors/staff [] Distress [] Loneliness/isolation [] Abandonment Spirituality of Patient [] Person of Claudine [] Attends Uatsdin of their Claudine [] Believes in Prayer [] Reads Bible or Anabaptist materials [] There are Spiritual issues to be addressed Mannequin Mounter Interventions [] Prayer [] Active listening [] Non-anxious presence [] Spiritual/emotional support [] Crisis/trauma care [] Spiritual counseling [] Bereavement support [] Provided bereavement packet [] Provided Bible/devotional materials [] Provided toy/stuffed animal, coloring book to patient or family member [] Provided Communion [] Anointing/[place] [] Salvation [] Completed spiritual assessment [] Other: Impact on Illness or Injury [] Angry [] Fearful [] Anxious [] Often cries [] Exhaustion [] Unable to work [] Unable to attend mandaen [] Unable to walk/stand [] Unable to read [] Unable to drive [] Unable to eat/drink [] Unable to sleep [] Unable to be with family [] Patient intubated [] Other: Summary Time spent with patient
--- NOTE | 2021-04-02 19:03 | PC.NURSE ---
Report to Yara Hendrix at this time.
[2021-04-03] VITALS (12 sets, daily range): BP systolic 93–120; BP diastolic 60–80; PULSE 48–84; RESP 16–24; TEMP 36–36.8; O2SAT 91–96
[2021-04-03] MEDS: ipratropium-albuterol 3 mL Neb INHALATION ×4 (02:15→20:14)
[2021-04-03] MEDS: propafenone 150 mg Tablet PO (08:34)
[2021-04-03] MEDS: cholecalciferol (vitamin D3) 1,000 unit Tablet 1000 UNIT PO (08:34)
[2021-04-03] MEDS: ascorbic acid 500 mg Tablet PO ×2 (08:35→17:22)
[2021-04-03] MEDS: pantoprazole DR 40 mg Tablet PO (08:35)
[2021-04-03] MEDS: zinc gluconate 50 mg Tablet PO (08:35)
[2021-04-03] MEDS: atorvastatin 40 mg Tablet 20 MG PO (08:35)
[2021-04-03] MEDS: budesonide 0.5 mg/2 mL Neb INHALATION ×2 (09:10→20:12)
--- NOTE | 2021-04-03 11:09 | PC.SOCIAL ---
IMM Update Pg. 2 of IMM updated and reviewed with patient over the phone who verbalized understanding. Copy in chart intialed, dated, and timed.
--- NOTE | 2021-04-03 14:32 | PM.PN ---
Subjective Subjective: Interval history: Patient was seen and examined this morning,says that she feels better,was complaining of hemoptysis this morning as well as dryness of nose. Medications: Reviewed: Yes Vitals/I&O/Wt Last Vital Signs Temp 97.9 F 04/03/21 11:34 Pulse 84 04/03/21 11:34 Resp 16 04/03/21 11:34 BP 109/65 04/03/21 11:34 Pulse Ox 92 04/03/21 11:34 04/02/21 04/03/21 04/03/21 22:59 06:59 14:59 Intake Total 120 / 120 120 / 240 120 / 120 Balance 120 / -280 120 / -160 120 / 120 Physical Exam Const: COMMON NORMALS: patient oriented x3 HENMT: COMMON NORMALS: normocephalic and atraumatic HEAD & SCALP: normocephalic and atraumatic Resp: OTHER: Diminished air entry bilaterally Cardio: COMMON NORMALS: regular rate, regular rhythm, S1 normal heart sound present, S2 normal heart sound present, No gallops present (Cardio), No murmurs present (Cardio), No rub (Cardio) and Peripheral pulses 2+ throughout RATE: regular rate RHYTHM: regular rhythm HEART SOUNDS: S1 normal heart sound present and S2 normal heart sound present PERIPHERAL PULSES: Peripheral pulses 2+ throughout GI: COMMON NORMALS: Normal to inspection, nondistended, normoactive bowel sounds present, Soft to palpation, non-tender, No hepatosplenomegaly present and no masses AUSCULTATION: Yes normoactive bowel sounds PALPATION: Yes Soft to palpation and Yes No hepatosplenomegaly present RECTAL EXAM: deferred Extremity: COMMON NORMALS: no clubbing, cyanosis or edema and no pedal edema Neuro: COMMON NORMALS: patient oriented x3 Data : 04/02/21 05:18 04/02/21 05:18 A&P Assessment and plan (1) Supratherapeutic INR: As above Status: Acute (2) Hypertension: Continue hydrochlorothiazide Status: Acute Qualifiers: Hypertension type: essential hypertension Qualified Code(s): I10 - Essential (primary) hypertension (3) Acute hypoxemic respiratory failure due to COVID-19: Remdisivir 200mg iv x 1 followed by 100mg iv daily dexamethasone 6mg IVP daily duoneb q6h, budesonide q12h empiric CTX and azithromycin Flutter valve/spirometer at bedside trend inflammatory markers including CRP, LDH, D dimer, Ferritin Low suspicion for PE given that patient is already on warfarin and is currently supratherapeutic INR Supplemental O2 to keep saturation greater than 92% Status: Acute (4) Atrial fibrillation: Currently in sinus rhythm, rate control Continue propafenone at home dose Holding Coumadin for now, patient states her goal INR is between 2.5-3.5 Recheck INR with a.m. labs Status: Acute Qualifiers: Atrial fibrillation type: unspecified chronic Qualified Code(s): I48.20 - Chronic atrial fibrillation, unspecified (5) COVID-19: Status: Acute (6) Hypokalemia: Status: Acute Additional A&P Information COVID-19 related persistent hypoxia Currently requiring 15 L nonrebreather mask however at rest she does well with nasal cannula 4 to 6 L Continue remdesivir and Decadron Not a candidate of interleukin-6 inhibitor Out of bed to chair, PT on daily basis Add multivitamin, appreciate recommendations from dietitian I have been trying to get in touch with her Sister Lizeth her voicemail has not been set up I tried to call from patient's cell phone and was unsuccessful however nurse has talked with her sister at some point yesterday A. 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
[2021-04-03] MEDS: dexamethasone 4 mg/mL INJ 6 MG IVP (22:11)
[2021-04-04] VITALS (16 sets, daily range): BP systolic 91–121; BP diastolic 48–71; PULSE 49–76; RESP 16–20; TEMP 36.4–36.9; O2SAT 90–96
[2021-04-04] MEDS: budesonide 0.5 mg/2 mL Neb INHALATION ×2 (08:26→20:08)
[2021-04-04] MEDS: ipratropium-albuterol 3 mL Neb INHALATION ×3 (08:26→20:08)
[2021-04-04] MEDS: propafenone 150 mg Tablet PO (08:54)
[2021-04-04] MEDS: zinc gluconate 50 mg Tablet PO (08:54)
[2021-04-04] MEDS: pantoprazole DR 40 mg Tablet PO (08:54)
[2021-04-04] MEDS: cholecalciferol (vitamin D3) 1,000 unit Tablet 1000 UNIT PO (08:54)
[2021-04-04] MEDS: atorvastatin 40 mg Tablet 20 MG PO (08:54)
[2021-04-04] MEDS: ascorbic acid 500 mg Tablet PO ×2 (08:54→17:46)
[2021-04-04 10:15] LABS: Basophils % 0.3 %; Hematocrit 44.6 % (37.0-47.0); Hemoglobin 14.5 g/dL (11.5-15.3); Lymphocytes # 0.8 10^3/uL (0.8-4.8); Lymphocytes % 6.4 %; Mean Corpuscular HGB Conc 32.5 g/dL (30.0-36.0); Mean Corpuscular Volume 95.5 fl (81-99); Mean Platelet Volume 10.3 fL (7.4-10.4); Monocytes # 0.4 10^3/uL (0.2-0.9); Monocytes % 2.9 %; Neutrophils # 10.29 10^3/uL (1.8-7.7); Neutrophils % 86.4 %; Nucleated Red Blood Cells % 0 %; Platelet Count 372 10^3/cmm (130-400); Red Blood Count 4.67 10^6/uL (4.1-5.3); Red Cell Distribution Width 13.2 % (12.1-15.1); White Blood Count 11.9 10^3/uL (4.0-10.0)
[2021-04-04 10:56] LABS: INR 2.42 (0.8-1.2)
--- NOTE | 2021-04-04 11:40 | P.PN_ITS ---
Subjective Subjective: Interval history: Patient was seen and examined this morning, currently she is having mild hemoptysis for the last 2 days, H&H is stable.Supplemental oxygen requirement is going down. INR is therapeutic. Medications: Reviewed: Yes Vitals/I&O/Wt Last Vital Signs Temp 98.2 F 04/04/21 07:49 Pulse 64 04/04/21 08:29 Resp 17 04/04/21 08:29 BP 121/71 04/04/21 07:49 Pulse Ox 90 04/04/21 08:29 04/03/21 04/04/21 04/04/21 22:59 06:59 14:59 Intake Total 200 / 320 0 / 320 240 / 240 Balance 200 / 320 0 / 320 240 / 240 Physical Exam Const: COMMON NORMALS: patient oriented x3 HENMT: COMMON NORMALS: normocephalic and atraumatic HEAD & SCALP: normocephalic and atraumatic Resp: OTHER: Diminished air entry bilaterally Cardio: COMMON NORMALS: regular rate, regular rhythm, S1 normal heart sound present, S2 normal heart sound present, No gallops present (Cardio), No murmurs present (Cardio), No rub (Cardio) and Peripheral pulses 2+ throughout RATE: regular rate RHYTHM: regular rhythm HEART SOUNDS: S1 normal heart sound present and S2 normal heart sound present PERIPHERAL PULSES: Peripheral pulses 2+ throughout GI: COMMON NORMALS: Normal to inspection, nondistended, normoactive bowel sounds present, Soft to palpation, non-tender, No hepatosplenomegaly present and no masses AUSCULTATION: Yes normoactive bowel sounds PALPATION: Yes Soft to palpation and Yes No hepatosplenomegaly present RECTAL EXAM: deferred Extremity: COMMON NORMALS: no clubbing, cyanosis or edema and no pedal edema Neuro: COMMON NORMALS: patient oriented x3 Data : 04/04/21 09:08 04/02/21 05:18 A&P Assessment and plan (1) Supratherapeutic INR: Resolved. We will continue to hold warfarin as the patient is having hemoptysis. Status: Acute (2) Hypertension: Continue hydrochlorothiazide Status: Acute Qualifiers: Hypertension type: essential hypertension Qualified Code(s): I10 - Essential (primary) hypertension (3) Acute hypoxemic respiratory failure due to COVID-19: Completed Remdisivir 200mg iv x 1 followed by 100mg iv daily dexamethasone 6mg IVP daily duoneb q6h, budesonide q12h empiric CTX and azithromycin Flutter valve/spirometer at bedside trend inflammatory markers including CRP, LDH, D dimer, Ferritin Low suspicion for PE given that patient is already on warfarin and is currently supratherapeutic INR Supplemental O2 to keep saturation greater than 92% Status: Acute (4) Atrial fibrillation: Currently in sinus rhythm, rate control Continue propafenone at home dose Holding Coumadin for now, as the patient is having hemoptysis Monitor INR with a.m. labs Status: Acute Qualifiers: Atrial fibrillation type: unspecified chronic Qualified Code(s): I48.20 - Chronic atrial fibrillation, unspecified (5) COVID-19: Status: Acute (6) Hypokalemia: Status: Acute Additional A&P Information COVID-19 related persistent hypoxia Currently on HHFONC Completed remdesivir course Continue Decadron Not a candidate of interleukin-6 inhibitor Out of bed to chair, PT on daily basis A. fib Continue propafenone check magnesium and potassium level on daily basis She is still supratherapeutic INR is 10 she is not getting any Coumadin Hypokalemia: Repleted Full code Cardiac diet DVT prophylaxis: SCDs Attestations Medical Necessity Statement*: Patient is to be in hospital for management of Covid pneumonia. 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
--- NOTE | 2021-04-04 17:45 | PC.RESP ---
RT Shift Note Frequent safety and respiratory rounds continue. Orders completed as indicated. Patient monitored pre and post treatments throughout shift. Patient tolerated treatments appropriately. Condition did not change. Patient and/or personal financial representative educated on respiratory treatment and medications. Patient and/or personal financial representative verbalized understanding. Will continue to monitor patient progress.
[2021-04-04] MEDS: dexamethasone 4 mg/mL INJ 6 MG IVP (22:06)
[2021-04-05] VITALS (16 sets, daily range): BP systolic 89–139; BP diastolic 48–84; PULSE 50–70; RESP 12–18; TEMP 36.5–36.8; O2SAT 89–97
[2021-04-05] MEDS: ipratropium-albuterol 3 mL Neb INHALATION ×4 (02:15→20:13)
[2021-04-05] MEDS: budesonide 0.5 mg/2 mL Neb INHALATION (08:01)
[2021-04-05 08:09] LABS: Basophils % 0.3 %; Hematocrit 37.7 % (37.0-47.0); Hemoglobin 12.6 g/dL (11.5-15.3); Lymphocytes # 0.6 10^3/uL (0.8-4.8); Lymphocytes % 5.7 %; Mean Corpuscular HGB Conc 33.4 g/dL (30.0-36.0); Mean Corpuscular Hemoglobin 30.3 pg (28.0-34.0); Mean Corpuscular Volume 90.6 fl (81-99); Mean Platelet Volume 10.6 fL (7.4-10.4); Monocytes # 0.3 10^3/uL (0.2-0.9); Monocytes % 2.7 %; Neutrophils % 87.5 %; Nucleated Red Blood Cells % 0 %; Platelet Count 340 10^3/cmm (130-400); Red Blood Count 4.16 10^6/uL (4.1-5.3)
[2021-04-05 08:16] LABS: INR 1.92 (0.8-1.2)
[2021-04-05 08:26] LABS: Anion Gap 13.2 (5-19); Blood Urea Nitrogen 15 mg/dL (8-23); Calcium 8.8 mg/dL (8.5-10.5); Carbon Dioxide 28 mmol/L (22-29); Chloride 101 mmol/L (98-107); Glomerular Filtration Rate 122.3 mL/min (90-130); Glucose 119 mg/dL (65-115); Osmolality Calculated 288 mOsm/kg (285-295); Potassium 4.2 mmol/L (3.5-5.1); Sodium 138 mmol/L (136-145)
[2021-04-05] MEDS: propafenone 150 mg Tablet PO (08:52)
[2021-04-05] MEDS: cholecalciferol (vitamin D3) 1,000 unit Tablet 1000 UNIT PO (08:52)
[2021-04-05] MEDS: methylphenidate 10 mg Tablet 5 MG PO (08:52)
[2021-04-05] MEDS: atorvastatin 40 mg Tablet 20 MG PO (08:52)
[2021-04-05] MEDS: ascorbic acid 500 mg Tablet PO ×2 (08:53→17:35)
[2021-04-05] MEDS: pantoprazole DR 40 mg Tablet PO (08:53)
[2021-04-05] MEDS: zinc gluconate 50 mg Tablet PO (08:53)
[2021-04-05] MEDS: predniSONE 10 mg Tablet PO (08:55)
--- NOTE | 2021-04-05 09:38 | PC.SOCIAL ---
IMM Update Pg. 2 of IMM updated and reviewed with patient over the phone, verbalized understanding. Initialed, dated, and timed copy in chart.
--- NOTE | 2021-04-05 14:34 | PM.PN ---
Subjective Subjective: Interval history: Patient was seen and examined this morning, she was saturating well on 40 L 45% heated high flow endorsing improvement in her energy and appetite 1 loose stool yesterday Patient is very eager to return to [place] once her O2 requirement improves Vitals/I&O/Wt Last Vital Signs Temp 97.7 F 04/05/21 08:00 Pulse 65 04/05/21 13:00 Resp 16 04/05/21 13:00 BP 139/84 04/05/21 11:59 Pulse Ox 83 L 04/05/21 13:00 04/04/21 04/05/21 04/05/21 22:59 06:59 14:59 Intake Total 480 / 1200 280 / 280 Balance 480 / 1200 280 / 280 Physical Exam Narrative: EXAM NARRATIVE: Semi garcia position heated high flow 40 L 44% EOMI, PERRLA No neurological deficit S1, S2 regular without active murmur or signs of heart failure Diminished bilateral breath sounds with crepitation and rhonchi Abdomen soft Lower extremity no edema Appropriate mood and affect Euthymic Data : 04/05/21 06:30 04/05/21 06:30 A&P Assessment and plan (1) Supratherapeutic INR: Status: Acute (2) Hypertension: Status: Acute Qualifiers: Hypertension type: essential hypertension Qualified Code(s): I10 - Essential (primary) hypertension (3) Acute hypoxemic respiratory failure due to COVID-19: Status: Acute (4) Atrial fibrillation: Status: Acute Qualifiers: Atrial fibrillation type: unspecified chronic Qualified Code(s): I48.20 - Chronic atrial fibrillation, unspecified (5) COVID-19: Status: Acute (6) Hypokalemia: Status: Acute Additional A&P Information Persistent hypoxia related to COVID-19 Currently on heated high flow 40 L 44% Status post remdesivir and Decadron regimen I will keep her on prednisone 10 mg for now onwards Continue multivitamins She is endorsing improvement in energy will hold off on Ritalin trial Supratherapeutic INR today INR is 1.9 we will start her on Coumadin regimen A. 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
[2021-04-05] MEDS: warfarin 4 mg Tablet PO (14:49)
--- NOTE | 2021-04-05 16:23 | PC.RESP ---
RT Shift Note Frequent safety and respiratory rounds continue. Orders completed as indicated. Patient monitored pre and post treatments throughout shift. Patient did tolerate treatments appropriately. Condition improved. Patient and/or risk control field representative educated on respiratory treatment and medications. Patient and/or risk control field representative verbalized understanding. Will continue to monitor patient progress.
[2021-04-06] VITALS (12 sets, daily range): BP systolic 96–111; BP diastolic 59–71; PULSE 54–82; RESP 16–20; TEMP 36.4–37; O2SAT 63–98
[2021-04-06] MEDS: ipratropium-albuterol 3 mL Neb INHALATION ×4 (03:14→21:24)
[2021-04-06 03:46] LABS: Basophils % 0.2 %; Hematocrit 34.3 % (37.0-47.0); Hemoglobin 11.5 g/dL (11.5-15.3); Lymphocytes # 1.4 10^3/uL (0.8-4.8); Lymphocytes % 14.1 %; Mean Corpuscular HGB Conc 33.5 g/dL (30.0-36.0); Mean Corpuscular Hemoglobin 31.1 pg (28.0-34.0); Mean Corpuscular Volume 92.7 fl (81-99); Mean Platelet Volume 10.2 fL (7.4-10.4); Monocytes # 0.7 10^3/uL (0.2-0.9); Monocytes % 7.6 %; Neutrophils # 7.24 10^3/uL (1.8-7.7); Neutrophils % 74.8 %; Nucleated Red Blood Cells % 0 %; Platelet Count 284 10^3/cmm (130-400); Red Cell Distribution Width 13.2 % (12.1-15.1); White Blood Count 9.7 10^3/uL (4.0-10.0)
[2021-04-06 04:08] LABS: Anion Gap 7.8 (5-19); Blood Urea Nitrogen 10 mg/dL (8-23); Calcium 8.8 mg/dL (8.5-10.5); Carbon Dioxide 31 mmol/L (22-29); Chloride 101 mmol/L (98-107); Glomerular Filtration Rate 99.1 mL/min (90-130); Glucose 87 mg/dL (65-115); Osmolality Calculated 280 mOsm/kg (285-295); Potassium 3.8 mmol/L (3.5-5.1); Sodium 136 mmol/L (136-145)
[2021-04-06] MEDS: atorvastatin 40 mg Tablet 20 MG PO (09:18)
[2021-04-06] MEDS: propafenone 150 mg Tablet PO (09:18)
[2021-04-06] MEDS: pantoprazole DR 40 mg Tablet PO (09:19)
[2021-04-06] MEDS: ascorbic acid 500 mg Tablet PO ×2 (09:19→17:21)
[2021-04-06] MEDS: zinc gluconate 50 mg Tablet PO (09:19)
[2021-04-06] MEDS: cholecalciferol (vitamin D3) 1,000 unit Tablet 1000 UNIT PO (09:19)
[2021-04-06] MEDS: predniSONE 10 mg Tablet PO (09:19)
--- NOTE | 2021-04-06 10:21 | PC.NUTR ---
Nutrition note: Late change--Ensure Plus removed from dietary information today. This RD notified by dietary staff on 04/02/21 that pt does not want the Ensure Plus, but did not remove at that time. Dietary has not been sending. EMR updated today.
--- NOTE | 2021-04-06 14:34 | PM.PN ---
Subjective Subjective: Interval history: Patient was seen and examined this morning, patient is endorsing feeling better and eager to go home, I have requested respite service to wean her heated high flow to simple nasal cannula and try with 6 to 8 L and do home O2 evaluation, she qualifies for 5 L on exertion Vitals/I&O/Wt Last Vital Signs Temp 97.9 F 04/06/21 12:00 Pulse 66 04/06/21 12:00 Resp 18 04/06/21 12:00 BP 111/71 04/06/21 12:00 Pulse Ox 98 04/06/21 12:00 04/05/21 04/06/21 04/06/21 22:59 06:59 14:59 Intake Total 420 / 700 Balance 420 / 700 Physical Exam Narrative: EXAM NARRATIVE: Patient sitting in her bed semi-[place] position She was praying Heated high flow transitioned to 5 L nasal cannula S1, S2 Abdomen soft Appropriate mood and energy EOMI, PERRLA No neurological deficits No sign of cellulitis Data : 04/06/21 03:10 04/06/21 03:10 A&P Assessment and plan (1) Hypokalemia: Status: Acute (2) COVID-19 vaccination not done: Status: Acute (3) Supratherapeutic INR: Status: Acute (4) Hypertension: Status: Acute Qualifiers: Hypertension type: essential hypertension Qualified Code(s): I10 - Essential (primary) hypertension (5) Acute hypoxemic respiratory failure due to COVID-19: Status: Acute (6) Atrial fibrillation: Status: Acute Qualifiers: Atrial fibrillation type: unspecified chronic Qualified Code(s): I48.20 - Chronic atrial fibrillation, unspecified (7) COVID-19: Status: Acute Additional A&P Information Persistent hypoxia related to COVID-19 Heated high flow transition to 5 L nasal cannula Plan to discharge her home tomorrow Status post remdesivir, steroids discontinued Hypokalemia: Repleted Supratherapeutic INR currently INR is within target range her Coumadin has been resumed on Monday A. fib without RVR Noticed dietary note Full code Regular diet Coumadin Attestations Medical Necessity Statement*: Anticipating discharge tomorrow Time Spent in Patient Care: less than 15 minutes Coding Level of Care Code Acute Help Desk Administrator for g Fwd Diagnoses Hypokalemia E87.6 COVID-19 vaccination not done Z28.9 Supratherapeutic INR R79.1 Hypertension I10 Hypertension type: essential hypertension Acute hypoxemic respiratory failure due to COVID-19 U07.1; J96.01 Atrial fibrillation I48.20 Atrial fibrillation type: unspecified chronic COVID-19 U07.1
[2021-04-06] MEDS: warfarin 4 mg Tablet PO (15:39)
[2021-04-07] VITALS (7 sets, daily range): BP systolic 104–118; BP diastolic 66–76; PULSE 50–79; RESP 16–20; TEMP 36.1–36.7; O2SAT 92–96
[2021-04-07 06:26] LABS: INR 2.49 (0.8-1.2)
--- NOTE | 2021-04-07 08:46 | PC.NURSE ---
pts pulse is low. she said she was wiping herself down, cleaning the room and getting excited to go home.
[2021-04-07] MEDS: ipratropium-albuterol 3 mL Neb INHALATION ×2 (09:52)
[2021-04-07] MEDS: atorvastatin 40 mg Tablet 20 MG PO (09:59)
[2021-04-07] MEDS: propafenone 150 mg Tablet PO (09:59)
[2021-04-07] MEDS: pantoprazole DR 40 mg Tablet PO (09:59)
[2021-04-07] MEDS: ascorbic acid 500 mg Tablet PO (09:59)
[2021-04-07] MEDS: zinc gluconate 50 mg Tablet PO (09:59)
[2021-04-07] MEDS: cholecalciferol (vitamin D3) 1,000 unit Tablet 1000 UNIT PO (09:59)
--- NOTE | 2021-04-07 10:29 | PC.SOCIAL ---
IMM update IMM updated, initialed, time and dated, pt informed and copy given.
--- NOTE | 2021-04-07 11:07 | PM.DCS ---
Discharge Providers Date of Admission: 03/25/21 21:58 Date of Discharge: April 07, 2021 Attending Provider at Admission: Tiffanie Kilgore MD Attending Provider at Discharge: Reese Haskins MD Diagnoses at Discharge Discharge Diagnosis (1) Hypokalemia: Status: Acute (2) COVID-19 vaccination not done: Status: Acute (3) Supratherapeutic INR: Status: Acute (4) Hypertension: Status: Acute Qualifiers: Hypertension type: essential hypertension Qualified Code(s): I10 - Essential (primary) hypertension (5) Acute hypoxemic respiratory failure due to COVID-19: Status: Acute (6) Atrial fibrillation: Status: Acute Qualifiers: Atrial fibrillation type: unspecified chronic Qualified Code(s): I48.20 - Chronic atrial fibrillation, unspecified (7) COVID-19: Status: Acute Reason for Visit Reason for Visit: SOB, CP Hospital Course Hospital Course HPI Venus Don is a 70 year old female currently visiting family here from [place], past medical history of PE for 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 She tested positive for COVID-19 infection on March 23, 2021. Presented to the emergency room for monoclonal antibody infusion, however was found to have a new oxygen requirement at that time and this was therefore deferred. She was discharged home with oxygen and dexamethasone 6 mg p.o. daily. States she was using up to 4 L/min at home, today she noted that she was becoming more short of breath, oxygen saturation was in the mid 80s and this prompted her to present to the emergency room. Her chest x-ray shows evidence of bilateral pneumonia. INR is noted to be supratherapeutic at this time. Patient is mildly short of breath and speaking in long sentences. Currently requiring 5 L/min via nasal cannula. She is unvaccinated for COVID-19 Hospital course: Patient was admitted for management of COVID-19 related hypoxic respiratory failure. She spent 13 days in the hospital, finished remdesivir, Decadron regimen. Her hospital course was notable for initial worsening of hypoxic respiratory failure requiring heated high flow associated with weakness and lethargy which improved after 10th day. We did try Ritalin at some point which seemed to improved her energy. She presented with supratherapeutic INR which improved with discontinuation of medication. At the time of discharge her INR is within therapeutic range with reinitiation of Coumadin. At the time of discharge she qualified for 6 L of oxygen on ambulation. He does not require any assistance during ambulation. She would not get any steroids or antibiotics at the time of discharge. She can continue her multivitamins and zinc at home. She was counseled to quarantine for at least 20 days from her day of symptoms. She will finish quarantine within a week. She did not require any antibiotics, no signs of secondary bacterial superimposed infection. Physical Exam Narrative: EXAM NARRATIVE: Patient sitting in her bed semi-[place] position She was praying Saturating well on 6 L nasal cannula S1, S2 Abdomen soft Appropriate mood and energy EOMI, PERRLA No neurological deficits No sign of cellulitis Discharge Data Data Completed and Pending: Completed Studies During Hospitalization Category Date Time Status XR chest 1V uday ble [id number] Routine Exams 03/31/21 08:57 Completed XR chest 1V uday ble [id number] Stat Exams 03/25/21 17:55 Completed XR chest 1V uday ble [id number] Stat Exams 04/02/21 05:26 Completed Labs from last 24 hours 04/07/21 05:45 PT 27.40 H INR 2.49 H Vitals: Last Vital Signs Temp 98.1 F 04/07/21 08:00 Pulse 79 04/07/21 09:53 Resp 20 H 04/07/21 09:53 BP 118/76 04/07/21 08:00 Pulse Ox 95 04/07/21 09:53 Discharge Plan Discharge Patient Disposition: Home Condition: Stable Prescriptions: New albuterol sulfate 90 mcg/actuation HFA aerosol inhaler 2 inh inhalation Q8H PRN (Reason: shortness of breath or wheezing) Qty: 6.7 RF: 2 Continued propafenone 150 mg Tablet 150 mg PO DAILY MDD SEE PHARMACY COMMENT RF: 0 hydrocodone-acetaminophen 5-325 mg tablet 1 tab PO DAILY PRN (Reason: Pain) RF: 0 simvastatin 10 mg tablet 10 mg PO DAILY RF: 0 warfarin 4 mg tablet See Rx Instructions .ROUTE .COMPLEX RF: 0 hydrochlorothiazide 12.5 mg capsule 12.5 mg PO DAILY RF: 0 zolpidem 10 mg tablet 10 mg PO BEDTIME PRN (Reason: Insomnia) RF: 0 cholecalciferol (vitamin D3) [Vitamin D3] 25 mcg (1,000 unit) Capsule 50 mcg PO DAILY RF: 0 albuterol sulfate 90 mcg/actuation HFA aerosol inhaler 2 inh INHALATION Q4H PRN (Reason: shortness of breath or wheezing) Qty: 18 RF: 0 Discontinued dexamethasone 6 mg tablet 6 mg PO DAILY RF: 0 Discharge Orders: Discharge Order (Routine); Ordered 04/07/21 Ordered By: Reese Haskins Other Ambulatory Orders: DME: Oxygen (Order) Location: None Selected Ordered By: Reese Haskins Discharge Diet: Cardiac Discharge Activity: Resume usual activity Patient Instructions: Albuterol (By breathing), Viral Pneumonia (GEN), Using Oxygen at Home (GEN), Opioid Safety, Pneumonia Stoplight Discharge Attestations Time Spent in Discharge Care*: less than 30 min Quality Metrics Clinical Quality Measures During this hospital stay, did patient experience: None Coding Level of Care Code Acute g DC note Diagnoses Hypokalemia E87.6 COVID-19 vaccination not done Z28.9 Supratherapeutic INR R79.1 Hypertension I10 Hypertension type: essential hypertension Acute hypoxemic respiratory failure due to COVID-19 U07.1; J96.01 Atrial fibrillation I48.20 Atrial fibrillation type: unspecified chronic COVID-19 U07.1
--- NOTE | 2021-04-08 10:37 | PC.SOCIAL ---
discharge follow up call made. patient prescribed inhaler at discharge, is taking all home medications as prescribed. has follow up appointment with Dr. Dennis and is aware of date and time. Per discharge summary pt is to remain in quarantine for 20 days, which would be 9-14, patient made aware of that date.
== END 2021-04-07 13:05 | disposition home or self-care (01) | DRG 177 ==
LOC: ER 21:26 → MS 2A 21:59 → MEDSURG 03-31 13:55
PROVIDERS: Hospitalist; Internal Medicine; Admitting Provider Student in an Organized Health Care Education/Training Program; Emergency Provider Emergency Medicine; Visit Provider Internal Medicine
DX: U07.1 COVID-19 (principal); J12.82 Pneumonia due to coronavirus disease 2019; J96.01 Acute respiratory failure with hypoxia; I48.20 Chronic atrial fibrillation, unspecified; R04.2 Hemoptysis; Z86.711 Personal history of pulmonary embolism; Z86.718 Personal history of other venous thrombosis and embolism; I10 Essential (primary) hypertension; R79.1 Abnormal coagulation profile; E87.6 Hypokalemia; Z79.891 Long term (current) use of opiate analgesic; Z79.01 Long term (current) use of anticoagulants
CPT/HCPCS: 36415; 36600; 71045; 80048; 80053; 82550; 82803; 82977; 83605; 83615; 83735; 83880; 84439; 84443; 84450; 84460; 85025; 85378; 85610; 86140; 87426; 87635; 90471; 90732; 93005; 94640; 94762; 96365; 96366; 96367; 97110; 97161; 97530; 99283; 99285; J0456; J0696; J1100; J3490; J7050; J7512; J7626; J7799

== ENCOUNTER 2021-04-21 13:18 | Outpatient (CLI) | payer MEDICARE, SELFPAY ==
--- NOTE | 2021-04-21 13:24 | XR_ITS ---
WS: [id number] PA and lateral chest, 04/21/2021 Clinical Data: One month F/U Covid Comparison: Portable chest, 04/02/2021. Findings: The bilateral patchy opacities have diminished slightly compared to the prior x-ray. The he art remains enlarged. The aortic arch is tortuous. The patient has had an anterior cervical disc fusi on. XR/XR chest 2V* [id number] Impression: 1. Slight improvement in bilateral pulmonary opacities. 2. No change in atherosclerosis and cardiomegaly.
== END 2021-04-21 13:19 | disposition home or self-care (01) ==
PROVIDERS: Visit Provider Family Medicine Adult Medicine
DX: U07.1 COVID-19 (principal); I70.90 Unspecified atherosclerosis; I51.7 Cardiomegaly
CPT/HCPCS: 71046; 85610

== ENCOUNTER → 2021-04-30 14:34 | Outpatient (BNVA) | payer MEDICARE, SELFPAY | PROVIDERS: Visit Provider Family Medicine Adult Medicine | DX: R79.1 Abnormal coagulation profile (principal); Z79.01 Long term (current) use of anticoagulants; U07.1 COVID-19; Z86.711 Personal history of pulmonary embolism; J96.01 Acute respiratory failure with hypoxia; Z51.81 Encounter for therapeutic drug level monitoring | CPT/HCPCS: 85610 ==

== ENCOUNTER → 2021-05-06 10:51 | Outpatient (BNVA) | payer MEDICARE, SELFPAY | PROVIDERS: Visit Provider Nurse Practitioner | DX: R06.02 Shortness of breath (principal); Z86.711 Personal history of pulmonary embolism | CPT/HCPCS: 71046; 85610 ==

== ENCOUNTER → 2021-05-13 10:28 | Outpatient (BNVA) | payer MEDICARE, SELFPAY | PROVIDERS: Visit Provider Family Medicine Adult Medicine | DX: Z86.711 Personal history of pulmonary embolism (principal); U07.1 COVID-19; R79.1 Abnormal coagulation profile | CPT/HCPCS: 85610 ==

== ENCOUNTER 2025-04-09 11:58 | Emergency (ER) | payer MEDICARE, OTHER, SELFPAY ==
--- OUTSIDE RECORDS SUMMARY | 2022-04-22 10:15 | XMS_ITS | Continuity of Care Document ---
Author Organization [facility] Address [address] [place] [address] Phone Care Team Providers Care Research Recruiter Name Role Phone Melisa OATES, Jw Unavailable Unavai lable Allergies, Adverse Reactions, Alerts Substance Reaction Status Criticality No Known Allergies Active No Inform ation Medications Medication Instructions Dosage Effective Dates (start - stop) Status Comments amiodarone 200 mg tablet take 1 tablet b y oral route every day 200 MG - Active simvastatin 10 mg tablet take 1 tablet b y oral route every day in the evening 10 MG - Active Coumadin 3 mg tablet take 1 tablet by oral route Mon - Active topiramate 25 mg tablet take 2 tablet by oral route 2 times every day in the morning and evening 50 MG - Active omeprazole 40 mg capsule,delayed release take 1 capsule by oral route every day before a meal 40 MG - Active hydrochlorothiazide 12.5 mg capsule take 1 capsule (12.5MG) by oral route every day 12.5 MG - Active Vitamin D3 2,000 unit tablet Take 1 tablet by mouth every day - Active Procedures Procedure Date Office/outpatient visit, est, detailed S Extracranial arteries study, duplex, com plete Office/outpatient visit, est, detailed A Multiple Studies At Rest And Or Stress A Cardiovascular stress test DIPYRIDAMOLE INJECTION NORMAL SALINE SOLUTION INFUS TECHNETIUM TC99M TETROFOSMIN AMINOPHYLLIN 250 MG INJ Office/outpatient visit, est, detailed M Electrocardiogram (routine ECG), complet e Complete TT Echo With 2D And M Mode Office/outpatient visit, est, detailed N Electrocardiogram (routine ECG), complet e Office/outpatient visit, est, detailed D Electrocardiogram (routine ECG), complet e Office/outpatient visit, est, detailed A Cath Placement In Corornary Arteries Feb Ultrasound Guidance For Vascular Access Office/outpatient visit, est, detailed A Multiple Studies At Rest And Or Stress J Cardiovascular stress test DIPYRIDAMOLE INJECTION NORMAL SALINE SOLUTION INFUS TECHNETIUM TC99M TETROFOSMIN AMINOPHYLLIN 250 MG INJ Complete TT Echo With 2D And M Mode Office/outpatient visit, est, detailed J Electrocardiogram (routine ECG), complet e Office/outpatient visit, est, detailed J Electrocardiogram (routine ECG), complet e Multiple Studies At Rest And Or Stress O Cardiovascular stress test, supervision only Cardiovascular stress test, tracing only Cardiovascular stress test, report only DIPYRIDAMOLE INJECTION NORMAL SALINE SOLUTION INFUS TECHNETIUM TC99M TETROFOSMIN AMINOPHYLLIN 250 MG INJ Office/outpatient visit, est, detailed S Electrocardiogram (routine ECG), complet e Complete TT Echo With 2D And M Mode Office/outpatient visit, est, detailed M Electrocardiogram (routine ECG), complet e Multiple Studies At Rest And Or Stress J Cardiovascular stress test DIPYRIDAMOLE INJECTION NORMAL SALINE SOLUTION INFUS TECHNETIUM TC99M TETROFOSMIN AMINOPHYLLIN 250 MG INJ IV Push Single Or Init Subst Or Drug Jan Office/outpatient visit, est, detailed J Electrocardiogram (routine ECG), complet e Office/outpatient visit, est, detailed J Electrocardiogram (routine ECG), complet e Office/outpatient visit, est, detailed N Office/outpatient visit, est, exp prob A ECG monitor/24 hrs, w/scan, complete Feb Electrocardiogram (routin Office/outpatient visit, est, detailed A Cath Placement In Corornary Arteries Jan Initial hospital care, low complex Subsequent hospital care, low complex Ju Office/outpatient visit, est, detailed J Multiple Studies At Rest And Or Stress J Cardiovascular stress test DIPYRIDAMOLE INJECTION NORMAL SALINE SOLUTION INFUS TECHNETIUM TC99M TETROFOSMIN AMINOPHYLLIN 250 MG INJ IV Push Single Or Init Subst Or Drug Jan Office/outpatient visit, new, detailed J Electrocardiogram (routine ECG), complet e Advance Directives Directive Yes / No Effective Date File Name No Information Encounters Encounter Description Practice Location Reason(s) For Visit Diagnoses Date Provider Providers Copied on Encounter Office/outpa tient visit, est, detailed [facility] [address] [place], [address], [place] tel:[phone] Main Office Cardiovascular Review (chief complaint) Paroxysmal atrial fibrillationO ther chest painHyperlipi demia, unspecifiedEs sential (primary) hypertensionP ulmonary fibrosis 2 Melisa Katz y. [address] [place], [id number]. tel:[phone] Referring Provider: Eric Espinoza MD, [address] [place], [address]. tel:[phone] [facility], [address] , [place], [address], [place] tel:[phone] Main Office No Information 2 Thayapran Nallathamb y. [address], [place], [place], [id number]. tel:[phone] Referring Provider: Eric Espinoza MD, [address], [place], [address]. tel:[phone] Office/outpa tient visit, est, detailed [facility], [address] [place], [address], [place] tel:[phone] Main Office Cardiovascular Review (chief complaint) Hyperlipidemi a, unspecifiedEs sential (primary) hypertensionP aroxysmal atrial fibrillationO ther chest painCOVID-19 Acute Respiratory Disease 2 Thayapran Nallathamb y. [address] , [place], [place], [id number]. tel:[phone] Referring Provider: Eric Espinoza MD, [address] [place], [address]. tel:[phone] [facility] [address] [place], [address], [place] tel:[phone] Main Office No Information 2 Thayapran Nallathamb y. [address] [place], [place], [id number]. tel:[phone] Referring Provider: Eric Espinoza MD, [address] [place], [address]. tel:[phone] Office/outpa tient visit, est, detailed [facility], [address], [place], [address], [place] tel:[phone] Main Office Cardiovascular Review (chief complaint) Essential (primary) hypertensionH yperlipidemia , unspecifiedPa roxysmal atrial fibrillationC OVID-19 Acute Respiratory DiseaseAnteri or chest-wall pain Sep-0 2 Thayapran Nallathamb y. [address], [place], [id number]. tel:[phone] Referring Provider: Eric Espinoza MD, [address], [place], [address]. tel:[phone] [facility], [address], [place], [address], [place] tel:[phone] Main Office No Information 2 Thayapran Nallathamb y. [address], [place], [id number]. tel:[phone] [facility], [address], [place], [address], [place] tel:[phone] Main Office No Information 1 Thayapran Nallathamb y. [address], [place], [id number]. tel:[phone] Referring Provider: Eric Espinoza MD, [address] [facility], [place], [address]. tel:[phone] Office/outpa tient visit, est, detailed [facility], [address], [place], [address], [place] tel:[phone] Main Office Cardiovascular Review (chief complaint) Paroxysmal atrial fibrillationP alpitationsHy perlipidemia, unspecifiedEs sential (primary) hypertensionC OVID-19 Nov-2 1 Thayapran Nallathamb y. [address], [facility], [id number]. tel:[phone] Referring Provider: Eric Espinoza MD, [address], [place], [address]. tel:[phone] Office/outpa tient visit, est, detailed [facility], [address], [facility], [address], [place] tel:[phone] Main Office Cardiovascular Review (chief complaint) Hyperlipidemi a, unspecifiedEs sential (primary) hypertensionP aroxysmal atrial fibrillationP alpitations 0 Thayapran Nallathamb y. [address], [place], [place], [id number]. tel:[phone] Referring Provider: Eric Espinoza MD, [address] [place], [address]. tel:[phone] Office/outpa tient visit, est, detailed [facility], [address], [place], [address], [place] tel:[phone] Main Office Cardiovascular Review (chief complaint) Hyperlipidemi a, unspecifiedEs sential (primary) hypertensionP aroxysmal atrial fibrillationP alpitationsOt her chest pain 0 Thayapran Nallathamb y. [address], [place], [place], [id number]. tel:[phone] Referring Provider: Eric Espinoza MD, [address] [place], [address]. tel:[phone] [facility], [address] [place], [address], [place] tel:[phone] [facility] No Information 0 Thayapran Nallathamb y. [address], [place], [place], [id number]. tel:[phone] Referring Provider: Jw Vincent, [address], [place], [address]. tel:[phone] Office/outpa tient visit, est, detailed [facility], [address], [place], [address], [place] tel:[phone] Main Office Cardiovascular Review (chief complaint) Hyperlipidemi a, unspecifiedEs sential (primary) hypertensionP aroxysmal atrial fibrillationO ther chest painPalpitati ons 0 Thayapran Nallathamb y. [address] , [place], [place], [id number]. tel:[phone] Referring Provider: Eric Espinoza MD, [address] [place], [address]. tel:[phone] [facility], [address], [place], [address], [place] tel:[phone] Main Office No Information 0 Thayapran Nallathamb y. [address] , [place], [place], [id number]. tel:[phone] Referring Provider: Eric Espinoza MD, [address] [place], [address]. tel:[phone] [facility], [address], [place], [address], [place] tel:[phone] Main Office No Information 0 Thayapran Nallathamb y. [address] , [place], [place], [id number]. tel:[phone] Referring Provider: Eric Espinoza MD, [address] [place], [address]. tel:[phone] Office/outpa tient visit, est, detailed [facility], [address], [place], [address], [place] tel:[phone] Main Office Cardiovascular Review (chief complaint) Hyperlipidemi a, unspecifiedEs sential (primary) hypertensionP aroxysmal atrial fibrillationO ther chest pain 0 Thayapran Nallathamb y. [address], [place], [place], [id number]. tel:[phone] Referring Provider: Eric Espinoza MD, [address] [place], [address]. tel:[phone] Office/outpa tient visit, est, detailed [facility], [address], [place], [address], [place] tel:[phone] Main Office Cardiovascular Review (chief complaint) Paroxysmal atrial fibrillationH yperlipidemia , unspecifiedAn terior chest-wall painEssential (primary) hypertension Malachi-2 202 0 Thayapran Nallathamb y. [address], [place], [place], [id number]. tel:[phone] Referring Provider: Eric Espinoza MD, [address] [facility], [place], [address]. tel:[phone] [facility], [address], [place], [address], [place] tel:[phone] Main Office No Information Apr-0 8 Thayapran Nallathamb y. [address], [place], [place], [id number]. tel:[phone] Referring Provider: Eric Espinoza MD, [address], [place], [address]. tel:[phone] Office/outpa tient visit, est, detailed [facility], [address], [place], [address], [place] tel:[phone] Main Office general (chief complaint) Hyperlipidemi a, unspecifiedPa roxysmal atrial fibrillationE ssential (primary) hypertensionE ncounter for preprocedural cardiovascula r examination Sep-2 201 8 Thayapran Nallathamb y. [address], [place], [place], [id number]. tel:[phone] Referring Provider: Merritt Espinoza MD, [address], [place], [address]. tel:[phone] [facility], [address], [place], [address], [place] tel:[phone] Main Office No Information 7 Thayapran Nallathamb y. [address], [facility], [id number]. tel:[phone] Referring Provider: Merritt Espinoza MD, [address], [place], [address]. tel:[phone] Office/outpa tient visit, est, detailed [facility], [address], [place], [address], [place] tel:[phone] Main Office general (chief complaint) Paroxysmal atrial fibrillationE ncounter for preprocedural cardiovascula r examinationHy pertensionHyp erlipidemiaFa tigue 7 Thayapran Nallathamb y. [address], [facility] [place], [id number]. tel:[phone] Referring Provider: Merritt Espinoza MD, [address], [place], [address]. tel:[phone] [facility], [address], [facility], [address], [place] tel:[phone] Main Office No Information 5 Thayapran Nallathamb y. [address], [facility] [place], [id number]. tel:[phone] Referring Provider: Merritt Espinoza MD, [address], [place], [address]. tel:[phone] Office/outpa tient visit, est, detailed [facility], [address], [facility] [place], [address], [place] tel:[phone] Main Office general (chief complaint) Coronary atheroscleros is of quileute coronary arteryHyperte nsion, BenignPre operative cardiovascula r exam Dec- 5 Thayapran Nallathamb y. [address], [place], [id number]. tel:[phone] Referring Provider: Eric Espinoza MD, [address], [place], [address]. tel:[phone] Office/outpa tient visit, est, detailed [facility], [address], [place], [address], [place] tel:[phone] Main Office Hypertension, BenignAtrial FibrillationF atigue / Malaise 0 6-201 4 Thayapran Nallathamb y. [address], [place], [id number]. tel:[phone] Referring Provider: Merritt Espinoza MD, [address], [place], [address]. tel:[phone] Office/outpa tient visit, est, detailed [facility], [address], [place], [address], [place] tel:[phone] Main Office Atrial FibrillationH ypertension, BenignEdema 0 8-201 3 Thayapran Nallathamb y. [address], [facility] [place], [id number]. tel:[phone] Referring Provider: Merritt Espinoza MD, [address], [place], [address]. tel:[phone] Office/outpa tient visit, est, exp prob [facility], [address], [place], [address], [place] tel:[phone] Main Office Atrial FibrillationF atigue / Malaise 2 3-201 3 Thayapran Nallathamb y. [address], [place], [id number]. tel:[phone] Referring Provider: Merritt Espinoza MD, [address], [place], [address]. tel:[phone] [facility], [address], [place], [address], [place] tel:[phone] Main Office No Information 8 3 Thayapran Nallathamb y. [address], [place], [id number]. tel:[phone] Referring Provider: Merritt Espinoza MD, [address], [place], [address]. tel:[phone] Office/outpa tient visit, est, detailed [facility], [address], [place], [address], [place] tel:[phone] Main Office Chest TightnessSick Sinus SyndromeHyper tension, Benign 3 Thayapran Nallathamb y. [address], [place], [id number]. tel:[phone] Referring Provider: Merritt Espinoza MD, [address], [place], [address]. tel:[phone] [facility], [address], [place], [address], [place] tel:[phone] Main Office No Information 3 Thayapran Nallathamb y. [address], [place], [id number]. tel:[phone] Referring Provider: Jw Vincent, [address], [place], [address]. tel:[phone] Initial hospital care, low complex [facility], [address], [place], [address], [place] tel:[phone] [facility] No Information 3 Thayapran Nallathamb y. [address], [place], [id number]. tel:[phone] Referring Provider: Lesley Hooks MD. Office/outpa tient visit, est, detailed [facility], [address], [place], [address], [place] tel:[phone] Main Office Chest TightnessHype rtension, BenignShortne ss of Breath 8-201 3 Thayapran Nallathamb y. [address], [place], [place], [address]. tel:[phone] Referring Provider: Merritt Espinoza MD, [address], [place], [address]. tel:[phone] [facility], [address], [place], [address], [place] tel:[phone] Main Office No Information 1-201 3 Thayapran Nallathamb y. [address], [place], [place], [id number]. tel:[phone] Referring Provider: Merritt Espinoza MD, [address], [place], [address]. tel:[phone] Office/outpa tient visit, new, detailed [facility], [address], [place], [address], [place] tel:[phone] [facility] Chest TightnessHype rtension, BenignShortne ss of Breath 4201 3 Thayapran Nallathamb y. [address], [place], [place], [id number]. tel:[phone] Referring Provider: Merritt Espinoza MD, [address], [place], [address]. tel:[phone] Family History Family Member Type Diagnosis Age At Onset No Information Payers Payer name Insurance type Covered alliance party ID Alishadorothy chiquitasergio(s) [facility] [id number] Social History Type Description Quantity Date Captured Comments Alcohol Use Details Caffeine Use Details Soda Tobacco Use Status No Information Smoking Status Never smoker Non-Smoking Tobacco Use Details : No Details Available : No Details Available Sep-23-2022 Sex Female Vital Signs Date / Time: Height Weight BMI Pulse Rate Blood Pressure Temperature Respiratory Rate Body Surface Area Head Circumference Head Circ. Percentile Wt./Edu. Percentile BMI percentile Pulse Ox Inhaled Ox 2:58 PM 60.00 in 94.801 kg (209.00 lbs) 40.8 2 kg/m eter (2) 58 /min 143/79 mm[Hg] 98.10 F 20 /min Chief Complaint And Reason For Visit From encounter dated '04/22/2022 15:15'. Cardiovascular Review (chief complaint). Description: The patient has had no chest discomfort suggestive of ischemia. Ms. Don has SOB. Ms. Don has not had palpitations, syncope or near syncope. Reason For Referral Reason For Referral No Information Plan Of Treatment Date Type Action Status Patient Education Cardiac Perfusion Scan (Medicine): Ab~ completed Patient Education Left Heart Catheterizat ion: About Thi~ completed Patient Education Cardiac Perfusion Scan (Medicine): Ab~ completed Patient Education Cardiac Perfusion Scan (Medicine): Ab~ completed History Of Present Illness Encounter Date Complaint History Of Prese nt Illness Cardiovascular Review The syed cabezas has had no chest discomfort suggestive of ischemia. Ms. Don has SOB. Ms. Don has not had palpitations, syncope or near syncope. Cardiovascular Review She has connors d no chest discomfort suggestive of ischemia. The patient denies orthopnea, PND, SHAH, or edema. Ms. Don has not had palpitations, syncope or near syncope. Cardiovascular Review The syed cabezas has symptoms suggestive of atypical chest pain. The patient denies orthopnea, PND, SHAH, or edema. Ms. Don has not had palpitations, syncope or near syncope. Cardiovascular Review She has connors d no chest discomfort suggestive of ischemia. The patient denies orthopnea, PND, SHAH, or edema. The patient has been having palpitations. Cardiovascular Review She has connors d no chest discomfort suggestive of ischemia. The patient denies orthopnea, PND, SHAH, or edema. The patient has been having palpitations. Cardiovascular Review She has connors d no chest discomfort suggestive of ischemia. The patient denies orthopnea, PND, SHAH, or edema. The patient has been having palpitations. Cardiovascular Review The syed cabezas has symptoms suggestive of atypical chest pain. The patient denies orthopnea, PND, SHAH, or edema. The patient has been having palpitations. Cardiovascular Review The syed cabezas has symptoms suggestive of atypical chest pain. The patient denies orthopnea, PND, SHAH, or edema. Ms. Don has not had palpitations, syncope or near syncope. Cardiovascular Review The syed cabezas has symptoms suggestive of atypical chest pain. The patient denies orthopnea, PND, SHAH, or edema. Ms. Don has not had palpitations, syncope or near syncope. general She has had no c hest discomfort suggestive of ischemia. The patient denies orthopnea, PND, SHAH, or edema. Ms. Don has not had palpitations, syncope or near syncope. general She has had no c hest discomfort suggestive of ischemia. The patient denies orthopnea, PND, SHAH, or edema. Ms. Don has not had palpitations, syncope or near syncope. general She has had no c hest discomfort suggestive of ischemia. The patient denies orthopnea, PND, SHAH, or edema. Ms. Don has not had palpitations, syncope or near syncope. Functional Status Date Functional Assessmen t No Information Instructions Date Instruction Additional Infor mation No Information Assessments Type Assessment Date assessment Paroxysmal atrial fibrillation S assessment Other chest pain assessment Hyperlipidemia, unspecified assessment Essential (primary) hypertension assessment Pulmonary fibrosis Patient Care Teams Name Effective Dates (start - stop) Status Members No Information
[2025-04-09 12:16] VITALS: BP 172/81; PULSE 69; RESP 18; TEMP 36.6; O2SAT 97; BMI 30.9
--- OUTSIDE RECORDS SUMMARY | 2025-04-09 12:16 | XMS_ITS | Continuity of Care Document ---
Author Organization [facility] Physician [facility] Contact Center Address [address] [place] [address] Care Team Providers Care Mainspring Strip Gauger Name Role Phone Blanquita Cabrera Silvia CARDIOVASCULAR DISEASE SPECIALIST Primary Care Provider [phone] Encounters Date Type Department Care Team Description 02/21/2025 9:00 AM PDT Office Visit [facility] [address] [place] [phone] Mitch Smith MD Pulmonary fibrosis (HCC) (Primary Dx); Chronic hypoxic respiratory failure (HCC); History of COVID-19; Syncope and collapse; Coarse tremors 02/20/2025 Travel 02/19/2025 Patient Outreach [facility] Contact Center [address] [place] [address] Emy Vaz MA Care Management Preventative Care 07/12/2024 10:15 AM PST Office Visit [facility] [address] Mitch Smith MD Pulmonary fibrosis (HCC) (Primary Dx); Chronic hypoxic respiratory failure (HCC); History of pulmonary embolism; Screening for chronic bronchitis and emphysema 07/11/2024 Travel 03/04/2024 Travel 03/04/2024 10:35 AM PDT - 03/04/2024 11:59 PM PDT Hospital Encounter [facility] - Cardiac Studies [address] [place] [address] Mitch Smith MD Pulmonary fibrosis (HCC); Chronic hypoxic respiratory failure (HCC) Discharge Disposition: Home or Self Care 01/19/2024 Travel 01/19/2024 9:51 AM PDT - 01/19/2024 11:59 PM PDT Hospital Encounter [facility] CT Imaging [address] [place] [address] Mitch Smith MD Pulmonary fibrosis (HCC) Discharge Disposition: Home or Self Care 01/10/2024 Travel 01/10/2024 10:00 AM PDT Office Visit [facility] Physician [facility] Pulmonary [address] [place] [phone] Mitch Smith MD Pulmonary fibrosis (HCC) (Primary Dx); Chronic hypoxic respiratory failure (HCC); History of pulmonary embolism; Screening for chronic bronchitis and emphysema 11/27/2023 Travel 11/27/2023 2:00 PM PDT Office Visit [facility] [address] [facility] [address] [place] [phone] Mitch Smith MD Loganbill, Heidi, MD Orthostatic tremor (Primary Dx); Nummular headache 08/18/2023 10:30 AM PST Office Visit [facility] Physician [facility] Pulmonary [address] [place] [phone] Mitch Smith MD Pulmonary fibrosis (HCC) (Primary Dx); Chronic hypoxic respiratory failure (HCC) 08/17/2023 Travel 08/05/2023 Telephone [facility] [address] [place] [address] Mitch Smith MD Results 07/26/2023 8:38 AM PST Hospital Encounter [facility] CT Imaging [address] [place] [address] Mitch Smith MD Abnormal weight loss Discharge Disposition: Home or Self Care 07/26/2023 8:39 AM PST - 07/26/2023 11:59 PM PST Hospital Encounter [facility] CT Imaging [address] [place] [address] Mitch Smith MD Coarse tremors Discharge Disposition: Home or Self Care 07/26/2023 8:38 AM PST Hospital Encounter [facility] CT Imaging [address] [place] [address] Mitch Smith MD History of COVID-19; Chronic hypoxic respiratory failure (HCC) Discharge Disposition: Home or Self Care 07/25/2023 Travel 07/17/2023 1:00 PM PST Office Visit [facility] Pulmonary [address] [place] [address] Only, [facility] Nurse Chronic hypoxic respiratory failure (HCC) (Primary Dx) 07/16/2023 Travel 07/05/2023 Telephone [facility] Pulmonary [address] [place] [address] Mitch Smith MD Question For Nurse Or Provider 07/04/2023 Travel 07/04/2023 2:30 PM PST Office Visit [facility] Pulmonary [address] [place] [address] Physician, MD Sarah Mckeon Hamza, MD Encounter for screening for respiratory disorder (Primary Dx); History of COVID-19; Chronic hypoxic respiratory failure (HCC); Abnormal weight loss; Coarse tremors 05/10/2023 Telephone [facility] Pulmonary [address] [place] [address] Physician, No Family Referral (Lung ) Allergies Active Allergy Reactions Criticality Noted Date Comments Egg Other (See Comments) 07/04/2023 Trembling then sweating Medications simvastatin (ZOCOR) 10 mg tablet Take 10 mg by mouth every night at bedtime. Active oxyBUTYnin (DITROPAN) 5 mg tablet Take 5 mg by mouth 3 times daily. Active nortriptyline (PAMELOR) 25 mg capsule Take 25 mg by mouth every night at bedtime. Active hydroCHLOROthi azide (HYDRODIURIL) 12.5 mg tablet Take 12.5 mg by mouth once daily. Active warfarin (COUMADIN) 3 mg tablet Take 3 mg by mouth once daily. 1 tablet daily on Rodriguez,T,Th,Sa Active warfarin (COUMADIN) 4 mg tablet Take 4 mg by mouth once daily. 1 tab daily M, W, F Active zolpidem (AMBIEN) 10 mg tablet Take 10 mg by mouth at bedtime as needed for Sleep. Active HYDROcodone-ac etaminophen (NORCO) 5-325 mg per tablet Take 1 tablet by mouth every 6 hours as needed for Pain. Active cholecalcifero l, vitamin D3, (VITAMIN D3) 25 mcg (1,000 unit) capsule Take 1,000 units by mouth once daily. Active meclizine HCl (MECLIZINE ORAL) Take by mouth. Unsure of mg Active OXYGEN-AIR DELIVERY SYSTEMS MISC 3 L/min by Miscellaneous route as needed. Active propranolol ER (INDERAL LA) 120 mg 24 hr capsule Take 120 mg by mouth once daily. Active Active Problems Problem Noted Date Diagnosed Date History of pulmonary embolism 01/10/2024 Orthostatic tremor 11/27/2023 Pulmonary fibrosis 08/18/2023 History of COVID-19 07/04/2023 Chronic hypoxic respiratory failure 07/04/2023 Abnormal weight loss 07/04/2023 Family History Medical History Relation Comments Heart disease Father Cancer Mother Relation Status Comments Father Mother Social History Smoking Status as of 04/09/2025 Tobacco Use Types Packs/Day Years Used Date Smoking Tobacco: Never Assessed Financial Resource Strain Answer Date R ecorded Difficulty of Paying Living Expenses Not on file 05/16/2023 Access to Reliable Phone Not on file 023 Sex and Gender Information Value Date Recorded Sex Assigned at Female 07/03/2023 4:43 PM PST Legal Sex Female 10:56 AM PDT Gender Identity Female 07/03/2023 4:43 PM PST Sexual Orientation Straight 07/03/2023 4: 43 PM PST Last Filed Vital Signs Vital Sign Reading Time Taken Comments Blood Pressure 112/70 02/21/2025 8:42 AM PDT Pulse 49 02/21/2025 8:42 AM PDT Temperature 36.6 C (97.9 F) 02/21/2025 8:42 AM PDT Respiratory Rate - - Oxygen Saturation 97% 02/21/2025 8:42 AM PDT 3 LPM Inhaled Oxygen Concentration - - Weight 78.5 kg (173 lb) 02/21/2025 8:42 AM PDT Height 152.4 cm (5') 02/21/2025 8:42 AM PDT Body Mass Index 33.79 02/21/2025 8:42 AM PDT Plan of Treatment Not on file Procedures Procedure Name Priority Date/Time Associated Diagnosis Comments POC PULM ORDERABLE Routine 02/21/2025 9: 24 AM PDT Pulmonary fibrosis (HCC) Chronic hypoxic respiratory failure (HCC) History of COVID-19 Syncope and collapse Coarse tremors POC PULM ORDERABLE Routine 07/12/2024 10 :19 AM PST Screening for chronic bronchitis and emphysema ECHO 2D COMPLETE W DOPPLER WO CONTRAST Routine 03/04/2024 11:38 AM PDT Pulmonary fibrosis (HCC) Chronic hypoxic respiratory failure (HCC) CT CHEST HIGH RESOLUTION Routine 01/19/2024 10:28 AM PDT Pulmonary fibrosis (HCC) POC PULM ORDERABLE Routine 01/10/2024 9: 50 AM PDT Screening for chronic bronchitis and emphysema MARTINE Routine 08/18/2023 11:40 AM PST Pulmonary fibrosis (HCC) ANTIBODY TO EXTRACTABLE NUCLEAR ANTIGEN EVALUATION Routine 08/18/2023 11:40 AM PST Pulmonary fibrosis (HCC) HC RA,RHEUMATOID FACTOR Routine 08/18/2023 11:40 AM PST Pulmonary fibrosis (HCC) CYCLIC CITRUL PEPTIDE ANTIBODY, IGG Routine 08/18/2023 11:40 AM PST Pulmonary fibrosis (HCC) ANTINEUTROPHIL CYTOPLASMIC ANTIBODIES VASCULITIS PANEL, SERUM (ENTERPRISE) Routine 08/18/2023 11:40 AM PST Pulmonary fibrosis (HCC) C-REACTIVE PROTEIN Routine 08/18/2023 11 :40 AM PST Pulmonary fibrosis (HCC) ERYTHROCYTE SEDIMENTATION RATE, AUTOMATED Routine 08/18/2023 11:40 AM PST Pulmonary fibrosis (HCC) COMPREHENSIVE METABOLIC PANEL Routine 08/18/2023 11:40 AM PST Pulmonary fibrosis (HCC) CT ABDOMEN PELVIS WO IV CONTRAST Routine 07/26/2023 9:09 AM PST Abnormal weight loss CT HEAD WO CONTRAST Routine 07/26/2023 9 :09 AM PST Coarse tremors CT CHEST HIGH RESOLUTION Routine 07/26/2023 9:09 AM PST History of COVID-19 Chronic hypoxic respiratory failure (HCC) POC PULM ORDERABLE Routine 07/17/2023 1: 46 PM PST Chronic hypoxic respiratory failure (HCC) POC PULM ORDERABLE Routine 07/04/2023 4: 12 PM PST Encounter for screening for respiratory disorder History of COVID-19 Chronic hypoxic respiratory failure (HCC) POC PULM ORDERABLE Routine 07/04/2023 2: 18 PM PST Encounter for screening for respiratory disorder Results * POC 6 Minute Walk, Done Today (02/21/2025 9:24 AM PDT) 02/21/2025 9:24 AM PDT Narrative [facility] - 02/21/2025 9:24 AM PDT Patient's SpO2 while resting on room air was 96. Dyspnea: 3 Fatigue: 2 Patient's SpO2 while ambulating on room air was 86. Patient ambulated 48.768 meters on room air. Dyspnea: 4 Fatigue: 3 Patient was tested on standard flow oxygen. While ambulating on 2 Liters of supplemental oxygen, patient's SpO2 was 94% Mitch Smith MD POINT OF CARE NONLAB ORDERABLE F inal Result [facility] [address] [place] [address] * (ABNORMAL) POC DLCO Only, Done Today (07/12/2024 10:19 AM PST) FVC 1.77 1.68 - 3.01 L [facility] FVC PRED 2.33 [facility] FEV1 1.55 1.30 - 2.30 L [facility] FEV1/FVC 88.01 64.54 - 90.28 % [facility] FEF 25-75% 2.35 0.71 - 2.86 L/S [facility] FEF 25-75 PRED 1.59 [facility] Peak Flow 5.28 3.27 - 6.22 L/S [facility] DLCO 11.12(A) 12.32 - 22.44 ML/(MIN*MM HG) [facility] 07/12/2024 10:1 9 AM PST Impressions S [facility]RE - 07/15/2024 11:45 PM PST There is mild reduction in diffusion (not corrected for hemoglobin). Isolated reduction in diffusion capacity indicate pulmonary vascular disorders such as chronic pulmonary embolism or pulmonary hypertension. Clinical correlation is advised. Comment: The patient does not meet ATS criteria for FVL maneuver and reproducibility. Mitch Smith M.D. Pulmonary, Critical Care and Sleep Medicine Narrative Carlos CORDERO - 07/15/2024 11:45 PM PST PULMONARY FUNCTION TEST PATIENT: Venus Don DATE OF : 1950 DATE OF TESTIN07/12/2024 REFERRING PROVIDER: No ref. provider found Procedures: Spirometry , Diffusing capacity of CO. SPIROMETRY: Normal inspiratory flow volume loop FEV1 and FVC are both normal. There is no obstructive ventilatory defect Flow volume loops showed: No evidence of restrictive or obstructive pattern in the flow volume loops DIFFUSING CAPACITY: Mild reduction in diffusion (not corrected for hemoglobin). us Mitch Smith MD POINT OF CARE NONLAB ORDERABLE F inal Result [facility]ER CORDERO [place], [place] * Echo 2D complete w doppler wo contrast (03/04/2024 11:38 AM PDT) Anatomical Region Laterality Modality Heart, Vascular Ultrasound 03/04/2024 10:4 2 AM PDT Narrative 03/05/2024 4:16 PM PDT Patient Info Name: Venus Don Age: 73 years : 1950 Gender: Female Wt: 89 kg BSA: 1.98 m2 HR: 92 bpm BP: 120 / 73 mmHg Heart Rhythm: Sinus Rhythm Exam Date: 03/04/2024 10:42 AM Site: [facility] Primary Location: [facility] ECHO IMG Patient Status: O Ht: 150 cm Exam Type: ECHO 2D COMPLETE W DOPPLER WO CONTRAST Study Info Indications Pulmonary fibrosis, unspecified (HCC) - Staff Referring Physician: Mitch Smith Ordering Physician: Mitch Smith Attending Physician: Mitch Smith Audiometric Technician: Candace Pennington [facility] Summary 1. Normal left ventricular systolic function with an estimated ejection fraction of 55-60%. 2. Mild aortic valve sclerosis. Left Ventricle Normal left ventricular chamber size. No left ventricular hypertrophy. Normal left ventricular systolic function with an estimated ejection fraction of 55-60%. 3D ejection fraction was attempted. Normal left ventricular segmental wall motion. Normal diastolic function. Right Ventricle Normal right ventricular chamber size. Normal right ventricular systolic function. Atria Normal left atrial chamber size. Normal right atrial chamber size. Aortic Valve Trileaflet aortic valve. Mild aortic valve sclerosis. No aortic valve stenosis with a peak velocity of 1.48 m/s, mean gradient of 4 mmHg, and aortic valve area of 2.4 cm2. Mild aortic valve regurgitation. Pulmonic Valve Normal pulmonic valve. No pulmonic valve stenosis. Trace pulmonic regurgitation. Mitral Valve Normal mitral valve leaflets. No mitral valve stenosis. No mitral valve regurgitation. Tricuspid Valve Normal tricuspid valve leaflets. No tricuspid valve stenosis. Mild tricuspid valve regurgitation. No pulmonary hypertension, estimated pulmonary arterial systolic pressure is 30 mmHg, given an estimated right atrial pressure of 3 mmHg. Pericardium/Pleural Normal pericardium. No pericardial effusion. Inferior Vena Cava Normal inferior vena cava with >50% collapse upon inspiration consistent with normal right atrial pressure, 3 mmHg. Aorta Normal aortic root at the sinus of Valsalva. Normal proximal ascending aorta measuring 3.3 cm with an index of 1.7 cm/m2. A brief scan of the abdominal aorta yields a diameter of 1.9 cm. Left Ventricular Outflow Tract Name Value Normal LVOT 2D LVOT Diameter 2.2 cm LVOT Doppler LVOT Peak Velocity 1.00 m/s LVOT Peak Gradient 4 mmHg LVOT Mean Gradient 2 mmHg LVOT VTI 17 cm LVOT VTI/AV VTI Ratio 0.6 LVOT Stroke Volume 66 ml Pulmonic Valve Name Value Normal PV Doppler PV Peak Velocity 0.72 m/s Mitral Valve Name Value Normal MV Doppler MV PHT 58 ms MV Area (PHT) 3.8 cm2 4.0-5.0 MV Diastolic Function MV E Peak Velocity 0.54 m/s MV A Peak Velocity 0.73 m/s MV E/A 0.7 Tricuspid Valve Name Value Normal TV Regurgitation Doppler TR Peak Velocity 2.59 m/s TR Peak Gradient 27 mmHg Estimated PAP/RSVP RA Pressure 3 mmHg <=5 PA Systolic Pressure 30 mmHg <36 RV Systolic Pressure 30 mmHg <36 Aorta Name Value Normal Ascending Aorta Ao Root Diameter (2D) 3.5 cm Ao Root Diam Index (2D) 1.8 cm/m2 <=2.0 Prox Asc Ao Diameter 3.3 cm 2.3-3.1 Prox Asc Ao Diameter Index 1.7 cm/m2 1.3-1.9 Abdominal Aorta Abd Ao Subxy A-P Diameter 1.9 cm Aortic Valve Name Value Normal AV Doppler AV Peak Velocity 1.48 m/s AV Peak Gradient 9 mmHg AV Mean Gradient 4 mmHg AV VTI 27 cm AV Area (Cont Eq VTI) 2.4 cm2 >=3.0 AV Area (Cont Eq Rick) 2.6 cm2 AV DI (Rick) 0.68 AV Regurgitation 2D LVOT Area 3.8 cm2 AV Regurgitation Doppler AR Decel [place] 150 cm/s2 AR PHT 922 ms Ventricles Name Value Normal LV Dimensions 2D/MM IVS Diastolic Thickness (2D) 0.9 cm 0.6-0.9 LVID Diastole (2D) 4.0 cm 3.8-5.2 LVIW Diastolic Thickness (2D) 0.9 cm 0.6-0.9 LVID Systole (2D) 2.6 cm 2.2-3.5 LVOT Diameter 2.2 cm LV Mass (2D Cubed) 106.63 g 67.00-162.00 LV Mass Index (2D Cubed) 54 g/m2 43-95 Relative Wall Thickness (2D) 0.42 LV Fractional Shortening/Ejection Fraction 2D/MM LV Fractional Shortening (2D) 35 % 27-45 LV EF (2D Teichholz) 65 % LV Diastolic Volume (4C MOD) 72 ml LV EF (4C MOD) 59 % LV Diastolic Volume (2C MOD) 69 ml LV EF (2C MOD) 54 % LV Diastolic Volume (BP MOD) 71 ml 46-106 LV Diastolic Volume Index (BP MOD) 36 ml/m2 29-61 LV Systolic Volume (BP MOD) 31 ml 14-42 LV Systolic Volume Index (BP MOD) 16 ml/m2 8-24 LV EF (BP MOD) 57 % 54-74 LV Diastolic Length (4C) 5.7 cm LV Systolic Length (4C) 5.1 cm LV Stroke Volume (4C MOD) 43 ml Atria Name Value Normal LA Dimensions LA Dimension (2D) 4.0 cm 2.7-3.8 LA Dimen Index (2D) 2.0 cm/m2 LA Volume (4C A-L) 58 ml LA Volume (BP A-L) 53 ml LA Volume Index (BP A-L) 27 ml/m2 Report Signatures Finalized by Ruperto Avendaño MD, PHD, [facility] on 03/05/2024 04:16 PM Procedure Note Ruperto Avendaño MD - 03/05/2024 Patient Info Name: Venus Don Age: 73 years : 1950 Gender: Female Wt: 89 kg BSA: 1.98 m2 HR: 92 bpm BP: 120 / 73 mmHg Heart Rhythm: Sinus Rhythm Exam Date: 03/04/2024 10:42 AM Site: [facility] Primary Location: [facility] ECHO IMG Patient Status: O Ht: 150 cm Exam Type: ECHO 2D COMPLETE W DOPPLER WO CONTRAST Study Info Indications Pulmonary fibrosis, unspecified (HCC) - Staff Referring Physician: Mitch Smith Ordering Physician: Mitch Smith Attending Physician: Mitch Smith Audiometric Technician: Candace Pennington [facility] Summary 1. Normal left ventricular systolic function with an estimatedejection fraction of 55-60%. 2. Mild aortic valve sclerosis. Left Ventricle Normal left ventricular chamber size. No left ventricular hypertrophy. Normal left ventricular systolic function with an estimated ejectionfraction of 55-60%. 3D ejection fraction was attempted. Normal left ventricular segmental wall motion. Normal diastolic function. Right Ventricle Normal right ventricular chamber size. Normal right ventricularsystolic function. Atria Normal left atrial chamber size. Normal right atrial chamber size. Aortic Valve Trileaflet aortic valve. Mild aortic valve sclerosis. No aortic valve stenosis with a peak velocity of 1.48 m/s, mean gradient of 4 mmHg, andaortic valve area of 2.4 cm2. Mild aortic valve regurgitation. Pulmonic Valve Normal pulmonic valve. No pulmonic valve stenosis. Trace pulmonic regurgitation. Mitral Valve Normal mitral valve leaflets. No mitral valve stenosis. No mitralvalve regurgitation. Tricuspid Valve Normal tricuspid valve leaflets. No tricuspid valve stenosis. Mildtricuspid valve regurgitation. No pulmonary hypertension, estimated pulmonaryarterial systolic pressure is 30 mmHg, given an estimated right atrial pressure of3 mmHg. Pericardium/Pleural Normal pericardium. No pericardial effusion. Inferior Vena Cava Normal inferior vena cava with >50% collapse upon inspirationconsistent with normal right atrial pressure, 3 mmHg. Aorta Normal aortic root at the sinus of Valsalva. Normal proximal ascendingaorta measuring 3.3 cm with an index of 1.7 cm/m2. A brief scan of theabdominal aorta yields a diameter of 1.9 cm. Left Ventricular Outflow Tract Name Value Normal LVOT 2D LVOT Diameter 2.2 cm LVOT Doppler LVOT Peak Velocity 1.00 m/s LVOT Peak Gradient 4 mmHg LVOT Mean Gradient 2 mmHg LVOT VTI 17 cm LVOT VTI/AV VTI Ratio 0.6 LVOT Stroke Volume 66 ml Pulmonic Valve Name Value Normal PV Doppler PV Peak Velocity 0.72 m/s Mitral Valve Name Value Normal MV Doppler MV PHT 58 ms MV Area (PHT) 3.8 cm2 4.0-5.0 MV Diastolic Function MV E Peak Velocity 0.54 m/s MV A Peak Velocity 0.73 m/s MV E/A 0.7 Tricuspid Valve Name Value Normal TV Regurgitation Doppler TR Peak Velocity 2.59 m/s TR Peak Gradient 27 mmHg Estimated PAP/RSVP RA Pressure 3 mmHg <=5 PA Systolic Pressure 30 mmHg <36 RV Systolic Pressure 30 mmHg <36 Aorta Name Value Normal Ascending Aorta Ao Root Diameter (2D) 3.5 cm Ao Root Diam Index (2D) 1.8 cm/m2 <=2.0 Prox Asc Ao Diameter 3.3 cm 2.3-3.1 Prox Asc Ao Diameter Index 1.7 cm/m2 1.3-1.9 Abdominal Aorta Abd Ao Subxy A-P Diameter 1.9 cm Aortic Valve Name Value Normal AV Doppler AV Peak Velocity 1.48 m/s AV Peak Gradient 9 mmHg AV Mean Gradient 4 mmHg AV VTI 27 cm AV Area (Cont Eq VTI) 2.4 cm2 >=3.0 AV Area (Cont Eq Rick) 2.6 cm2 AV DI (Rick) 0.68 AV Regurgitation 2D LVOT Area 3.8 cm2 AV Regurgitation Doppler AR Decel [place] 150 cm/s2 AR PHT 922 ms Ventricles Name Value Normal LV Dimensions 2D/MM IVS Diastolic Thickness (2D) 0.9 cm 0.6-0.9 LVID Diastole (2D) 4.0 cm 3.8-5.2 LVIW Diastolic Thickness (2D) 0.9 cm 0.6-0.9 LVID Systole (2D) 2.6 cm 2.2-3.5 LVOT Diameter 2.2 cm LV Mass (2D Cubed) 106.63 g 67.00-162.00 LV Mass Index (2D Cubed) 54 g/m2 43-95 Relative Wall Thickness (2D) 0.42 LV Fractional Shortening/Ejection Fraction 2D/MM LV Fractional Shortening (2D) 35 % 27-45 LV EF (2D Teichholz) 65 % LV Diastolic Volume (4C MOD) 72 ml LV EF (4C MOD) 59 % LV Diastolic Volume (2C MOD) 69 ml LV EF (2C MOD) 54 % LV Diastolic Volume (BP MOD) 71 ml 46-106 LV Diastolic Volume Index (BP MOD) 36 ml/m2 29-61 LV Systolic Volume (BP MOD) 31 ml 14-42 LV Systolic Volume Index (BP MOD) 16 ml/m2 8-24 LV EF (BP MOD) 57 % 54-74 LV Diastolic Length (4C) 5.7 cm LV Systolic Length (4C) 5.1 cm LV Stroke Volume (4C MOD) 43 ml Atria Name Value Normal LA Dimensions LA Dimension (2D) 4.0 cm 2.7-3.8 LA Dimen Index (2D) 2.0 cm/m2 LA Volume (4C A-L) 58 ml LA Volume (BP A-L) 53 ml LA Volume Index (BP A-L) 27 ml/m2 16-34 Report Signatures Finalized by Ruperto Avendaño MD, PHD, FACC on 03/05/2024 04:16 PM Mitch Smith MD CV ECHO ORDERABLES Final Result * CT chest high resolution (01/19/2024 10:28 AM PDT) Only the most recent of2 resultswithin the time period is included. Anatomical Region Laterality Modality Chest, Lung Computed Tomogra phy 01/19/2024 10:2 8 AM PDT Impressions 01/19/2024 2:37 PM PDT IMPRESSION: Essentially stable findings of interstitial lung disease without significant fibrosis, suggesting nonspecific interstitial pneumonia. RADIA Dictated By: Freddy Draper MD 2024-01-19 14:36:51.667 Signed By: Freddy Draper MD 2024-01-19 14:37:52.0 Transcribed By: Freddy Draper 2024-01-19 14:37:52.943 SITE ID: [id number] Patients are advised to discuss imaging findings and recommendations with the ordering provider. Narrative 01/19/2024 2:37 PM PDT EXAM: CT CHEST HIGH-RESOLUTION WITHOUT CONTRAST EXAM DATE: 01/19/2024 10:28 AM CLINICAL HISTORY: Fibrosis progression. COMPARISON: CT CHEST HIGH RESOLUTION 07/26/2023 8:47 AM TECHNIQUE: High-resolution CT was performed utilizing thin section imaging in supine and prone position. Multiaxial helical CT imaging was performed through the chest. IV contrast: None. Reconstructions: Coronal and sagittal. In accordance with CT protocol optimization, one or more of the following dose reduction techniques were utilized for this exam: automated exposure control, adjustment of mA and/or KV based on patient size, or use of iterative reconstructive technique. FINDINGS: LOWER NECK: Benign coarse calcification is seen in the right lobe of the thyroid gland CHEST WALL/AXILLA: Normal. MEDIASTINUM: Mild cardiomegaly. Mild to moderate tortuosity of the descending thoracic aorta. Minimal to mild atherosclerotic changes in the coronary arteries. Prominent calcification of the trachea and major bronchi LUNGS: Patchy areas of groundglass infiltrate with mild lower lobe traction bronchiectasis and reticular opacities. Focal eventration along the anterior aspect of the left hemidiaphragm. Geographic areas of air trapping on expiratory sequence. UPPER ABDOMEN: Normal. BONES: ACDF in the lower cervical region. OTHER: None. Procedure Note Baron Hayes MD - 01/19/2024 EXAM: CT CHEST HIGH-RESOLUTION WITHOUT CONTRAST EXAM DATE: 01/19/2024 10:28 AM CLINICAL HISTORY: Fibrosis progression. COMPARISON: CT CHEST HIGH RESOLUTION 07/26/2023 8:47 AM TECHNIQUE: High-resolution CT was performed utilizing thin section imagingin supine and prone position. Multiaxial helical CT imaging was performedthrough the chest. IV contrast: None. Reconstructions: Coronal andsagittal. In accordance with CT protocol optimization, one or more of the followingdose reduction techniques were utilized for this exam: automated exposurecontrol, adjustment of mA and/or KV based on patient size, or use ofiterative reconstructive technique. FINDINGS: LOWER NECK: Benign coarse calcification is seen in the right lobe of thethyroid gland CHEST WALL/AXILLA: Normal. MEDIASTINUM: Mild cardiomegaly. Mild to moderate tortuosity of thedescending thoracic aorta. Minimal to mild atherosclerotic changes in thecoronary arteries. Prominent calcification of the trachea and majorbronchi LUNGS: Patchy areas of groundglass infiltrate with mild lower lobetraction bronchiectasis and reticular opacities. Focal eventration alongthe anterior aspect of the left hemidiaphragm. Geographic areas of airtrapping on expiratory sequence. UPPER ABDOMEN: Normal. BONES: ACDF in the lower cervical region. OTHER: None. IMPRESSION: Essentially stable findings of interstitial lung disease withoutsignificant fibrosis, suggesting nonspecific interstitial pneumonia. RADIA Dictated By: Freddy Draper MD 2024-01-19 14:36:51.667 Signed By: Freddy Draper MD 2024-01-19 14:37:52.0 Transcribed By: Freddy Draper 2024-01-19 14:37:52.943 SITE ID: [id number] Patients are advised to discuss imaging findings and recommendations withthe ordering provider. Mitch Smith MD IMG CT ORDERABLES Final Result * (ABNORMAL) POC DLCO Only, Done Today (01/10/2024 9:50 AM PDT) FVC 1.75 1.69 - 3.03 L [facility] FVC PRED 2.34 [facility] FEV1 1.51 1.32 - 2.31 L [facility] FEV1/FVC 86.31 64.67 - 90.27 % [facility] FEF 25-75% 2.01 0.72 - 2.88 L/S [facility] FEF 25-75 PRED 1.60 [facility] Peak Flow 5.66 3.35 - 6.30 L/S [facility] DLCO 11.72(A) 12.35 - 22.47 ML/(MIN*MM HG) [facility] 01/10/2024 9:50 AM PDT Impressions [facility] - 01/12/2024 8:37 PM PDT Normal study There is mild reduction in diffusion capacity but it fully corrects for alveolar ventilation. Comment: The patient does not meet ATS criteria for FVL maneuver and reproducibility. Mitch Smith M.D. Pulmonary, Critical Care and Sleep Medicine Narrative [facility] - 01/12/2024 8:37 PM PDT PULMONARY FUNCTION TEST PATIENT: Venus Don DATE OF : 1950 DATE OF TESTIN01/10/2024 REFERRING PROVIDER: PhysicianMike MD Procedures: Spirometry , Diffusing capacity of CO. SPIROMETRY: Normal inspiratory flow volume loop FEV1 and FVC are both normal There is no obstructive ventilatory defect Flow volume loops showed: No evidence of restrictive or obstructive pattern in the flow volume loops DIFFUSING CAPACITY: Mild reduction in diffusion not corrected for hemoglobin. us Mitch Smith MD POINT OF CARE NONLAB ORDERABLE F inal Result PETER [place], [place] * Antibody to Extractable Nuclear Antigen Evaluation -Routine (08/18/2023 11:40 AM PST) Anti-SSA Antibody <0.2 <1.0 (Negative ) U 08/22/2023 2:37 PM PST [facility] Anti-SSB Antibody <0.2 <1.0 (Negative ) U 08/22/2023 2:[address] [facility] SM Antibody, IgG <0.2 <1.0 (Negative ) U 08/22/2023 2:[address] [facility] Scleroderma (SCL 70) Antibody, IgG <0.2 <1.0 (Negative ) U 08/22/2023 2:[address] [facility] Anti PATRICIA 1 Ab, IgG <0.2 <1.0 (Negative ) U 08/22/2023 2:[address] [facility] Comment: Test Performed by: [facility] [address] [place] [address] Lumber Mover: Judah Brennan M.D. Ph.D.; CLIA# [id number] NURSING INSTRUCTOR Antibody, IgG 0.2 <1.0 (Negative ) U 08/22/2023 2:[address] [facility] Blood BLOOD SPECIMEN / Unknown Venipuncture - Lab / Unknown 08/18/2023 11:40 AM PST 08/18/2023 11:40 AM PST us Mitch Smith MD LAB BLOOD ORDERABLES Final Resul t [facility] * Rheumatoid Factor -Routine (08/18/2023 11:40 AM PST) Rheumatoid Factor 8.6 <12.5 IU/mL 08/18/2023 3:10 PM [facility] Blood BLOOD SPECIMEN / Unknown Venipuncture - Lab / Unknown 08/18/2023 11:40 AM PST 08/18/2023 11:40 AM PST us Mitch Smith MD LAB BLOOD ORDERABLES Final Resul t [facility] [address] * Myeloperoxidase Antibody Proteinase 3 Antibody, serum -Routine (08/18/2023 11:40 AM PST) Myeloperoxidase Ab, S <0.2 <0.4 (Negative ) U 08/22/2023 1:00 PM PST [facility] Proteinase 3 Ab (PR3), S <0.2 <0.4 (Negative ) U 08/22/2023 1:00 PM PST [facility] Comment: Test Performed by: [facility] [place] [address] Lumber Mover: Judah Brennan M.D. Ph.D.; CLIA# [id number] Blood BLOOD SPECIMEN / Unknown Venipuncture - Lab / Unknown 08/18/2023 11:40 AM PST 08/18/2023 11:40 AM [facility] us Mitch Smith MD LAB BLOOD ORDERABLES Final Resul t Performing Organization Address City/[facility]/ZIP Co de Phone Number [facility] * Cyclic Citrullinated Peptide Ab, IgG -Routine (08/18/2023 11:40 AM PST) Cyclic Citrullinated Peptide Ab, IgG 0.7 <7.0 Units 08/21/2023 12:06 PM [facility] Cyclic Citrullinated Peptide Ab, IgG Interpretation Negative Negative 08/21/2023 12:06 PM [facility] Blood BLOOD SPECIMEN / Unknown Venipuncture - Lab / Unknown 08/18/2023 11:40 AM PST 08/18/2023 11:40 AM PST Narrative [facility] - 08/21/2023 12:06 PM PST The methodology for this test was changed on 09/29/2019. Reference ranges have been updated to reflect the change in methodology. us Mitch Smith MD LAB BLOOD ORDERABLES Final Resul t Performing Organization Address [facility] de Phone Number [facility] [address] [place] [address] * Erythrocyte Sedimentation Rate, Automated -Routine (08/18/2023 11:40 AM PST) Erythrocyte Sedimentation Rate, Automated 7 0 - 30 mm/hr 08/18/2023 12:54 PM PST [facility] Blood BLOOD SPECIMEN / Unknown Venipuncture - Lab / Unknown 08/18/2023 11:40 AM PST 08/18/2023 11:40 AM PST us Mitch Smith MD LAB BLOOD ORDERABLES Final Resul t Performing Organization Address [facility] de Phone Number [facility] [address] [place] [address] * C-reactive protein -Routine (08/18/2023 11:40 AM PST) CRP <5.00 <5.00 mg/L 08/18/2023 12:47 PM PST [facility] Blood BLOOD SPECIMEN / Unknown Venipuncture - Lab / Unknown 08/18/2023 11:40 AM PST 08/18/2023 11:40 AM PST Narrative [facility] - 08/18/2023 12:47 PM PST For cardiac risk assessment, order High Sensitivity CRP (CRPHS). us Mitch Smith MD LAB BLOOD ORDERABLES Final Resul t Performing Organization Address [facility] de Phone Number [facility] [address] [place] [address] * MARTINE Screen -Routine (08/18/2023 11:40 AM PST) dsDNA Antibody, IgG 1.3 <10.0 IU/mL 08/21/2023 1:56 PM PST [facility] Comment:The dsDNA test is an enzyme linked fluorescent immunoassay that detects only high avidity antibodies. dsDNA Ab by [employer] IFA, IgG is available as a sendout as requested. dsDNA Antibody, IgG Interpretation Negative Negative 08/21/2023 1:56 PM [facility] MARTINE Screen (Symphony) 0.20 <0.70 Units 08/21/2023 1:56 PM [facility] Comment:The MARTINE screen (Symp hony) method is an enzyme linked fluorescent immunoassay that tests for U1RNP, SS-A/Ro, SS-B/La, centromere B, Scl-70, Patricia-1, and Sm antibodies. dsDNA is run separately as part of the MARTINE order. MARTINE Screen (Symphony) Interpretation Negative Negative 08/21/2023 1:56 PM [facility] Blood BLOOD SPECIMEN / Unknown Venipuncture - Lab / Unknown 08/18/2023 11:40 AM PST 08/18/2023 11:40 AM [facility] Mitch Smith MD LAB BLOOD ORDERABLES Final Resul t Performing Organization Address City/State/[facility] Co de Phone Number [facility] * (ABNORMAL) Comprehensive Metabolic Panel -Routine (08/18/2023 11:40 AM [facility]) Sodium 143 135 - 143 mmol/L 08/18/2023 12:47 PM [facility] Potassium 3.9 3.5 - 5.1 mmol/L 08/18/2023 12:47 PM [facility] Chloride 103 98 - 111 mmol/L 08/18/2023 12:47 PM [facility] CO2 - Carbon Dioxide 29 21 - 31 mmol/L 08/18/2023 12:47 PM [facility] Glucose 93 80 - 99 mg/dL 08/18/2023 12:47 PM [facility] BUN 14 6 - 23 mg/dL 08/18/2023 12:47 PM [facility] Creatinine 0.79 0.55 - 1.10 mg/dL 08/18/2023 12:47 PM [facility] Calcium 10.5(H) 8.6 - 10.3 mg/dL 08/18/2023 12:47 PM [facility] AST - Aspartate Aminotransferase 18 8 - 39 IU/L 08/18/2023 12:47 PM [facility] ALT - Alanine Aminotransferase 11 7 - 52 IU/L 08/18/2023 12:47 PM [facility] Alkaline Phosphatase 78 34 - 104 IU/L 08/18/2023 12:47 PM [facility] Bilirubin Total 0.8 0.3 - 1.2 mg/dL 08/18/2023 12:47 PM [facility] Protein Total 7.1 6.0 - 8.0 g/dL 08/18/2023 12:47 PM [facility] Albumin 4.4 3.5 - 5.0 g/dL 08/18/2023 12:47 PM [facility] Globulin 2.7 2.0 - 3.7 g/dL 08/18/2023 12:47 PM [facility] Albumin/Globulin Ratio 1.6 >0.9 08/18/2023 12:47 PM [facility] Anion Gap 11 4 - 13 mmol/L 08/18/2023 12:47 PM [facility] Glomerular Filtration Rate Estimate (Female) >60 >=60 mL/min/1. 73m*2 08/18/2023 12:47 PM [facility] GFR Additional Info 08/18 12:47 PM [facility] Comment:For additional infor mark, please visit the National Kidney Disease Education Program (NKDEP) at http://nkdep.nih.gov/ Blood BLOOD SPECIMEN / Unknown Venipuncture - Lab / Unknown 08/18/2023 11:40 AM PST 08/18/2023 11:40 AM [facility] us Mitch Smith MD LAB BLOOD ORDERABLES Final Resul t [facility] [address] * CT abdomen pelvis without IV contrast : (07/26/2023 9:09 AM PST) Anatomical Region Laterality Modality Abdomen, Pelvis, Hip Computed To mography 07/26/2023 9:09 AM PST Impressions 07/26/2023 9:26 PM PST IMPRESSION: No evidence of acute abdominal or pelvic abnormality. No evidence for etiology of weight loss described in history. Coarse reticular opacities in both lung bases, best seen on dedicated high resolution CT scan of the chest performed concurrently. Nonobstructing right nephrolithiasis. Uncomplicated cholelithiasis. Mild distal predominant colonic diverticulosis. Dictated By: Arlette Bennett MD 2023-07-26 21:25:56.917 Signed By: Arlette Bennett MD 2023-07-26 21:26:58.0 Transcribed By: Arlette Bennett 2023-07-26 21:26:58.357 SITE ID: [id number] Patients are advised to discuss imaging findings and recommendations with the ordering provider. Narrative 07/26/2023 9:26 PM PST EXAM:CT ABDOMEN PELVIS WO IV CONTRAST EXAM DATE: 07/26/2023 09:09 AM CLINICAL HISTORY: Abnormal weight loss. COMPARISONS: None TECHNIQUE: Routine helical CT imaging was performed through the abdomen and pelvis. IV contrast: CONTRAST. Enteric contrast: No. Reconstructions: Coronal and sagittal. In accordance with CT protocol optimization, one or more of the following dose reduction techniques were utilized for this exam: automated exposure control, adjustment of mA and/or KV based on patient size, or use of iterative reconstructive technique. FINDINGS: LOWER CHEST: Reticular opacities in both lung bases with suggestion of subpleural sparing. Cardiomegaly. LIVER: Normal. GALLBLADDER/BILIARY TREE: Calcified gallstones are seen in the gallbladder. No evidence of cholecystitis. PANCREAS: Normal. SPLEEN: Normal. ADRENAL GLANDS: Normal. KIDNEYS/URETERS: Punctate nonobstructing stone in the lower pole of the right kidney (image 38 of series 2) URINARY BLADDER: Normal. REPRODUCTIVE ORGANS: Prior hysterectomy. BOWEL/PERITONEUM: Mild distal predominant colonic diverticulosis. APPENDIX: No evidence of appendicitis. LYMPH NODES: Normal. VASCULATURE: Scattered aortic atherosclerotic calcifications. ABDOMINAL WALL: Tiny fat-containing ventral hernia (image 32 series 2) with 9 mm fascial defect. No evidence of bowel involvement. BONES: Mild arthrosis of both hips. Mild arthrosis of both sacroiliac joints. Grade 1 anterolisthesis of L5 on S1 with bilateral L5 spondylolysis. Diffuse spondylosis of the visualized thoracolumbar spine. OTHER: None. Procedure Note Donald Chong MD - 07/26/2023 EXAM:CT ABDOMEN PELVIS WO IV CONTRAST EXAM DATE: 07/26/2023 09:09 AM CLINICAL HISTORY: Abnormal weight loss. COMPARISONS: None TECHNIQUE: Routine helical CT imaging was performed through the abdomenand pelvis. IV contrast: CONTRAST. Enteric contrast: No. Reconstructions:Coronal and sagittal. In accordance with CT protocol optimization, one or more of the followingdose reduction techniques were utilized for this exam: automated exposurecontrol, adjustment of mA and/or KV based on patient size, or use ofiterative reconstructive technique. FINDINGS: LOWER CHEST: Reticular opacities in both lung bases with suggestion ofsubpleural sparing. Cardiomegaly. LIVER: Normal. GALLBLADDER/BILIARY TREE: Calcified gallstones are seen in thegallbladder. No evidence of cholecystitis. PANCREAS: Normal. SPLEEN: Normal. ADRENAL GLANDS: Normal. KIDNEYS/URETERS: Punctate nonobstructing stone in the lower pole of theright kidney (image 38 of series 2) URINARY BLADDER: Normal. REPRODUCTIVE ORGANS: Prior hysterectomy. BOWEL/PERITONEUM: Mild distal predominant colonic diverticulosis. APPENDIX: No evidence of appendicitis. LYMPH NODES: Normal. VASCULATURE: Scattered aortic atherosclerotic calcifications. ABDOMINAL WALL: Tiny fat-containing ventral hernia (image 32 series 2)with 9 mm fascial defect. No evidence of bowel involvement. BONES: Mild arthrosis of both hips. Mild arthrosis of both sacroiliacjoints. Grade 1 anterolisthesis of L5 on S1 with bilateral [id number]. Diffuse spondylosis of the visualized thoracolumbarspine. OTHER: None. IMPRESSION: No evidence of acute abdominal or pelvic abnormality. No evidence for etiology of weight loss described in history. Coarse reticular opacities in both lung bases, best seen on dedicated highresolution CT scan of the chest performed concurrently. Nonobstructing right nephrolithiasis. Uncomplicated cholelithiasis. Mild distal predominant colonic diverticulosis. Dictated By: Arlette Bennett MD 2023-07-26 21:25:56.917 Signed By: Arlette Bennett MD 2023-07-26 21:26:58.0 Transcribed By: Arlette Bennett 2023-07-26 21:26:58.357 SITE ID: [id number] Patients are advised to discuss imaging findings and recommendations withthe ordering provider. Mitch Simth MD [facility] CT ORDERABLES Final Result * CT head without contrast (07/26/2023 9:09 AM PST) Anatomical Region Laterality Modality Head Computed Tomogra phy 07/26/2023 9:09 AM PST Impressions 07/26/2023 9:22 PM PST IMPRESSION: No evidence of acute intracranial abnormality. Mild age-appropriate volume loss and white matter changes of chronic microangiopathy. Dictated By: Arlette Bennett MD 2023-07-26 21:21:34.107 Signed By: Arlette Bennett MD 2023-07-26 21:22:35.0 Transcribed By: Arlette Bennett 2023-07-26 21:22:35.73 SITE ID: [id number] Patients are advised to discuss imaging findings and recommendations with the ordering provider. Narrative 07/26/2023 9:22 PM PST EXAM:CT HEAD WO CONTRAST EXAM DATE: 07/26/2023 09:09 AM CLINICAL HISTORY: Severe tremors. COMPARISON: None TECHNIQUE: Multiaxial CT images were obtained from the foramen magnum to the vertex. Reformats: Sagittal and coronal. Other: None. IV contrast: None. In accordance with CT protocol optimization, one or more of the following dose reduction techniques were utilized for this exam: automated exposure control, adjustment of mA and/or KV based on patient size, or use of iterative reconstructive technique. FINDINGS: EXTRA-AXIAL SPACE: Mild generalized volume loss. CEREBRUM: Mild periventricular and subcortical white matter hypodensity. CEREBELLUM: Generalized volume loss. SELLA: Normal. BRAIN STEM: Normal. ORBITS: Right lens prosthesis. PARANASAL SINUSES/MASTOID AIR CELLS: Normal. BONES: Normal. OTHER: None. Procedure Note Donald Chong MD - 07/26/2023 EXAM:CT HEAD WO CONTRAST EXAM DATE: 07/26/2023 09:09 AM CLINICAL HISTORY: Severe tremors. COMPARISON: None TECHNIQUE: Multiaxial CT images were obtained from the foramen magnum tothe vertex. Reformats: Sagittal and coronal. Other: None. IV contrast:None. In accordance with CT protocol optimization, one or more of the followingdose reduction techniques were utilized for this exam: automated exposurecontrol, adjustment of mA and/or KV based on patient size, or use ofiterative reconstructive technique. FINDINGS: EXTRA-AXIAL SPACE: Mild generalized volume loss. CEREBRUM: Mild periventricular and subcortical white matter hypodensity. CEREBELLUM: Generalized volume loss. SELLA: Normal. BRAIN STEM: Normal. ORBITS: Right lens prosthesis. PARANASAL SINUSES/MASTOID AIR CELLS: Normal. BONES: Normal. OTHER: None. IMPRESSION: No evidence of acute intracranial abnormality. Mild age-appropriate volume loss and white matter changes of chronicmicroangiopathy. Dictated By: Arlette Bennett MD 2023-07-26 21:21:34.107 Signed By: Arlette Bennett MD 2023-07-26 21:22:35.0 Transcribed By: Arlette Bennett 2023-07-26 21:22:35.73 SITE ID: [id number] Patients are advised to discuss imaging findings and recommendations withthe ordering provider. Mitch Smith MD IMG CT ORDERABLES Final Result * PFT (07/04/2023 2:18 PM PST) FVC (POST) 1.99 1.71 - 3.04 L [facility] FVC 1.88 1.71 - 3.04 L [facility] FVC PRED 2.36 [facility] FEV1 (POST) 1.71 1.33 - 2.33 L [facility] FEV1 1.60 1.33 - 2.33 L [facility] FEV1/FVC (POST) 85.69 64.80 - 90.27 % [facility] FEV1/FVC 85.29 64.80 - 90.27 % [facility] FEF 25-75% (POST) 2.42 0.73 - 2.90 L/S [facility] FEF 25-75% 2.23 0.73 - 2.90 L/S [facility] FEF 25-75 PRED 1.62 [facility] PEAK FLOW (POST) 4.07 3.35 - 6.30 L/S [facility] Peak Flow 4.39 3.35 - 6.30 L/S [facility] DLCO 13.48 12.38 - 22.49 ML/(MIN*MMH G) [facility] 07/04/2023 2:18 PM PST Impressions PETER CORDERO - 07/06/2023 12:32 PM PST There is mild restrictive ventilatory defect. There is no response to inhaled bronchodilators. The lack of bronchodilator response should not preclude the use of inhaled bronchodilators Comment: Patient meets ATS standards for time and volume. Patient understood how to perform LV, panting was uniform and gentle; SVC was maximal. DLCO not corrected for HB. Patient gave good effort. Mitch Smith M.D. Pulmonary, Critical Care and Sleep Medicine Narrative Carlos ForresterLESVIA - 07/06/2023 12:32 PM PST PULMONARY FUNCTION TEST PATIENT: Venus Don DATE OF : 1950 DATE OF TESTIN07/04/2023 REFERRING PROVIDER: PhysicianMike MD Procedures: Spirometry Pre and Post, Lung volumes , Diffusing capacity of CO. SPIROMETRY: FEV1 and FVC are both normal. There is no obstructive ventilatory defect There is no response to inhaled bronchodilators. Absence of response to bronchodilator does not preclude clinical response to bronchodilators. Flow volume loops showed: There is restrictive pattern in the flow volume loop LUNG VOLUMES: There is mild restrictive ventilatory defect. DIFFUSING CAPACITY: No reduction in diffusion not corrected for hemoglobin. 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 History of pulmonary embolism Personal history of venous thrombosis and embolism 05/10/2023 History of COVID-19 07/04/2023 Chronic hypoxic respiratory failure (HCC) 07/04/2023 Abnormal weight loss Loss of weight 07/04/2023 Coarse tremors Abnormal involuntary movements 07/04/2023 Encounter for screening for respiratory disorder 07/04/2023 Chronic hypoxic respiratory failure (HCC) 07/17/2023 Abnormal weight loss Loss of weight 07/26/2023 Coarse tremors Abnormal involuntary movements 07/26/2023 History of COVID-19 07/26/2023 Chronic hypoxic respiratory failure (HCC) 07/26/2023 Coarse tremors Abnormal involuntary movements 08/05/2023 Pulmonary fibrosis (HCC) Postinflammatory pulmonary fibrosis 08/18/2023 Chronic hypoxic respiratory failure (HCC) 08/18/2023 Orthostatic tremor Essential and other specified forms of tremor 11/27/2023 Nummular headache 11/27/2023 Pulmonary fibrosis (HCC) Postinflammatory pulmonary fibrosis 01/10/2024 Chronic hypoxic respiratory failure (HCC) 01/10/2024 History of pulmonary embolism Personal history of venous thrombosis and embolism 01/10/2024 Screening for chronic bronchitis and emphysema 01/10/2024 Pulmonary fibrosis (HCC) Postinflammatory pulmonary fibrosis 01/19/2024 Pulmonary fibrosis (HCC) Postinflammatory pulmonary fibrosis 03/04/2024 Chronic hypoxic respiratory failure (HCC) 03/04/2024 Pulmonary fibrosis (HCC) Postinflammatory pulmonary fibrosis 07/12/2024 Chronic hypoxic respiratory failure (HCC) 07/12/2024 History of pulmonary embolism Personal history of venous thrombosis and embolism 07/12/2024 Screening for chronic bronchitis and emphysema 07/12/2024 Pulmonary fibrosis (HCC) Postinflammatory pulmonary fibrosis 02/21/2025 Chronic hypoxic respiratory failure (HCC) 02/21/2025 History of COVID-19 02/21/2025 Syncope and collapse 02/21/2025 Coarse tremors Abnormal involuntary movements 02/21/2025 Care Teams [employer] Relationship Specialty Start Date End Date Blanquita Cabrera FNP [address] [place] [id number] PCP - General Family Medicine 11/27/23
--- NOTE | 2025-04-09 12:21 | XR_ITS ---
WS: [id number] Right elbow, 3 views, 04/09/2025 Clinical Data: Trauma Comparison: None. Findings: No fractures or dislocations are seen. The radial head is normal. The soft tissues are unremarkable. There is minimal calcification of the articular cartilage of the radial head. There is a small olecranon spur. XR/XR elbow RT min 3V* [id number] Impression: Negative right elbow.
--- NOTE | 2025-04-09 12:21 | XR_ITS ---
WS: [id number] Right forearm, AP and lateral views, 04/09/2025 Clinical Data: Trauma Comparison: None. Findings: No fractures or dislocations are seen. The soft tissues are normal. The visualized right wrist and elbow show no obvious abnormalities. XR/XR forearm RT 2V [id number] Impression: Negative for right forearm fracture.
--- NOTE | 2025-04-09 12:35 | W.ED.EXTPRO ---
HPI - Extremity Problem General: Chief complaint: Extremity Problem,Nontraumatic Stated complaint: R arm brused and swollen forarm Time Seen by Provider: 04/09/25 12:02 History of Present Illness: 74 yo female presents to the ED with complaints of mild pain and swelling of the R forearm. No hx of trauma. No fever sweats chills. no pain in the elbow or wrist. Associated symptoms: Deny chest pain, fever(s) or rash Related Data Home Medications ?Medication ?Instructions ?Recorded ?Confirmed cholecalciferol (vitamin D3) 25 50 mcg PO DAILY 03/23/21 04/09/25 mcg (1,000 unit) capsule (Vitamin D3) hydrochlorothiazide 12.5 mg capsule 12.5 mg PO DAILY 03/23/21 04/09/25 simvastatin 10 mg tablet 10 mg PO DAILY 03/23/21 04/09/25 zolpidem 10 mg tablet 10 mg PO BEDTIME PRN Insomnia 03/23/21 04/09/25 hydrocodone 5 mg-acetaminophen 325 1 tab PO Q8H PRN Pain 04/21/21 04/09/25 mg tablet meclizine 25 mg tablet 25 mg PO TID 04/09/25 04/09/25 nortriptyline 25 mg capsule 25 mg PO BEDTIME 04/09/25 04/09/25 oxybutynin chloride 5 mg tablet 5 mg PO DAILY 04/09/25 04/09/25 propranolol 120 mg capsule,24 120 mg PO DAILY 04/09/25 04/09/25 hr,extended release Previous Rx's ?Medication ?Instructions ?Recorded warfarin 3 mg tablet 3 mg PO DAILY blood thinner 90 05/13/21 days #90 tabs INOGEN, OXYGEN UNIT #1 ea 08/12/21 Allergies Allergy/AdvReac Type Severity Reaction Status Date / Time egg Allergy vomiting Verified 05/13/21 08:22 Review of Systems Const: Denies: fever(s) or chills Card: Denies: chest pain Resp: Denies: dyspnea GI: Denies: abdominal pain : Denies: dysuria, urinary frequency or urinary urgency Musc: Denies: neck pain or back pain Skin/Breast: Denies: rash PFSH ED PFSH: Medical History Obesity (BMI 30.0-34.9) History of pulmonary embolism Hypertension DVT (deep venous thrombosis) Atrial fibrillation Surgical History Status post cervical discectomy Total knee replacement status Social History Alcohol intake: never Substance/Drug Use: never Physical Exam Const: GENERAL APPEARANCE: cooperative and comfortable ORIENTATION/CONSCIOUSNESS: Yes awake, Yes oriented to person, Yes oriented to place and Yes oriented to time HENMT: COMMON NORMALS: normocephalic, atraumatic and hearing grossly normal bilaterally HEAD & SCALP: normocephalic and atraumatic Resp: COMMON NORMALS: normal respiratory effort, No retractions, No use of accessory muscles and clear to auscultation bilaterally AUSCULTATION: clear to auscultation bilaterally Cardio: COMMON NORMALS: regular rate, regular rhythm and No murmurs present (Cardio) RATE: regular rate RHYTHM: regular rhythm Extremity: COMMON NORMALS: normal to inspection, capillary refill normal, no clubbing, cyanosis or edema, no calf tenderness and no pedal edema OTHER: R forearm ecchymosis in several color variations of reabsorption. No fluctuance. No significant painwith passive range of motion of the R forearm. No lacerations or abrasions. No signs of infection Neuro: SENSORIUM/ORIENTATION: Yes oriented to person, Yes oriented to place and Yes oriented to time Skin: COMMON NORMALS: no rashes or lesions noted GENERAL SKIN EXAM: no rashes or lesions noted Course Vital Signs: Vital signs: Vital Signs Temperature 97.8 F 04/09/25 12:16 Pulse Rate 70 04/09/25 14:09 Respiratory Rate 18 04/09/25 12:16 Blood Pressure 172/81 04/09/25 12:16 Pulse Oximetry 99 04/09/25 14:09 Oxygen Delivery Me thod Nasal Cannula 04/09/25 12:16 Oxygen Flow Rate 3 04/09/25 12:16 MDM - Extremity (Nontraumatic) Medical Decision Making Mild overanticoagulation. Hold coumadin for 3 days and recheck INR. Elevate R arm when able and apply ICE. Medical Records I reviewed the patient's medical records. Lab Data I reviewed the patient's lab results. 04/09/25 13:04 Radiology Impressions Elbow X-Ray 04/09/25 12:21 Impression: Negative right elbow. Forearm X-Ray 04/09/25 12:21 Impression: Negative for right forearm fracture. Laboratory Results WBC 6.18 10^3/uL (3.29-11.43) 04/09/25 13:04 RBC 4.17 10^6/uL (3.85-5.65) 04/09/25 13:04 Hgb 12.20 g/dL (11.27-16.99) 04/09/25 13:04 Hct 36.2 % (36-47) 04/09/25 13:04 MCV 86.8 fl (85-98) 04/09/25 13:04 MCH 29.3 pg (27-33) 04/09/25 13:04 MCHC 33.7 g/dL (30-55) 04/09/25 13:04 RDW 12.8 % (12.1-15.1) 04/09/25 13:04 Plt Count 257 10^3/cmm (157-399) 04/09/25 13:04 MPV 9.4 fL (7.4-10.4) 04/09/25 13:04 Neut % (Auto) 70.4 % 04/09/25 13:04 Lymph % (Auto) 20.6 % 04/09/25 13:04 [place] % (Auto) 6.6 % 04/09/25 13:04 Eos % (Auto) 1.9 % 04/09/25 13:04 Baso % (Auto) 0.3 % 04/09/25 13:04 Neut # (Auto) 4.35 10^3/uL (1.8-7.7) 04/09/25 13:04 Lymph # (Auto) 1.3 10^3/uL (0.8-4.8) 04/09/25 13:04 [place] # (Auto) 0.4 10^3/uL (0.2-0.9) 04/09/25 13:04 Eos # (Auto) 0.1 10^3/uL (0.0-0.8) 04/09/25 13:04 Baso # (Auto) 0.0 10^3/uL (0.0-0.1) 04/09/25 13:04 Nucleated RBC % (auto) 0 % 04/09/25 13:04 Nucleated RBCs # 0.0 /100WBC 04/09/25 13:04 PT 39.10 SECONDS (12.1-14.9) H 04/09/25 13:04 INR 3.75 (0.8-1.2) H 04/09/25 13:04 All radiology interpretation(s) finalized by discharge Discharge Plan Discharge Patient Disposition: Home Clinical Impression: Hematoma, Over-anticoagulated Condition: Stable Prescriptions: No Action hydrocodone-acetaminophen 5-325 mg tablet 1 tab PO Q8H PRN (Reason: Pain) warfarin 3 mg tablet 3 mg PO DAILY 90 Days Qty: 90 0RF (DME) INOGEN, OXYGEN UNIT See Rx Instructions .Route .MEDSUPPLY Qty: 1 0RF Rx Instructions: As directed simvastatin 10 mg tablet 10 mg PO DAILY hydrochlorothiazide 12.5 mg capsule 12.5 mg PO DAILY zolpidem 10 mg tablet 10 mg PO BEDTIME PRN (Reason: Insomnia) cholecalciferol (vitamin D3) [Vitamin D3] 25 mcg (1,000 unit) Capsule 50 mcg PO DAILY nortriptyline 25 mg capsule 25 mg PO BEDTIME meclizine 25 mg tablet 25 mg PO TID propranolol 120 mg capsule,extended release 24 hr 120 mg PO DAILY oxybutynin chloride 5 mg tablet 5 mg PO DAILY Discharge Orders: Discharge ED (Routine); Ordered 04/09/25 Ordered By: Khoa Sosa Discharge Diet: Usual diet Discharge Activity: Resume usual activity Patient Instructions: Opioid Safety, Pain Management, Patient Portal & Jovon Instructions Activity Restrictions/Additional Instructions: Thank you for choosing [facility] for your healthcare needs today. It is very important that you follow up as instructed or that you return to the Emergency Department should you have concerns or if your condition changes or worsens in any way. Emergency department visits are focused on emergent conditions, in some cases you may require further evaluation on an outpatient basis. You were seen in the emergency room with complaints of swelling and bruising on the right forearm. You are mildly over anticoagulated with your Coumadin. The x-rays did not show any acute fractures or a sign of infection your white count was normal. Recommend you hold your Coumadin for the next 2 days and recheck an INR at that time. You should ice and elevate the affected area of the right arm whenever you are able (Please note that included in your discharge packet is information concerning opioid safety and pain management. This information is given to all patients were discharged from the ER regardless of their discharge diagnosis or the medicines they usually take or are prescribed.) Print Language: Palauan Coding Level of Care Code ED Anesthesiology Physician for Rajendra Dunaway
[2025-04-09 13:11] LABS: Hematocrit 36.2 % (36-47); Hemoglobin 12.20 g/dL (11.27-16.99); Mean Corpuscular HGB Conc 33.7 g/dL (30-55); Mean Corpuscular Hemoglobin 29.3 pg (27-33); Mean Corpuscular Volume 86.8 fl (85-98); Nucleated Red Blood Cells % 0 %; Platelet Count 257 10^3/cmm (157-399); Red Blood Count 4.17 10^6/uL (3.85-5.65); White Blood Count 6.18 10^3/uL (3.29-11.43)
[2025-04-09 13:39] LABS: INR 3.75 (0.8-1.2); Prothrombin Time 39.10 SECONDS (12.1-14.9)
[2025-04-09 14:09] VITALS: PULSE 70; O2SAT 99
== END 2025-04-09 14:11 | disposition home or self-care (01) ==
PROVIDERS: Emergency Provider Family Medicine
DX: S50.11XA Contusion of right forearm, initial encounter (principal); Z79.01 Long term (current) use of anticoagulants; I10 Essential (primary) hypertension; X58.XXXA Exposure to other specified factors, initial encounter
CPT/HCPCS: 36415; 73080; 73090; 85025; 85610; 99284

== ENCOUNTER → 2025-04-14 09:30 | Outpatient (BNVA) | payer MEDICARE, OTHER, SELFPAY | DX: I48.20 Chronic atrial fibrillation, unspecified (principal); Z86.711 Personal history of pulmonary embolism | CPT/HCPCS: 85610 ==

== ENCOUNTER → 2025-04-17 12:30 | Outpatient (BNVA) | payer MEDICARE, OTHER, SELFPAY | DX: Z86.711 Personal history of pulmonary embolism (principal) | CPT/HCPCS: 85610 ==

== ENCOUNTER → 2025-04-25 08:13 | Outpatient (BNVA) | payer MEDICARE, OTHER, SELFPAY | DX: I48.20 Chronic atrial fibrillation, unspecified (principal) | CPT/HCPCS: 85610 ==